=== PATIENT | male | born 1990 | race Caucasian/White ===

== ENCOUNTER 2017-10-22 23:11 | Emergency (ER) | payer MEDICAID ==
[~2017-10-22] VITALS: Ht 170.2 cm; Wt 56.1 kg
[~2017-10-22 23:11] MED LIST: ACYC-202 PO; BUPR100T4 PO; BUPR100T5 PO; CLIN-80 PO; CLON-529 PO; CLON0.5T4 PO; DIPH-423 PO; DOCU-20 PO; GUAI600T45 PO; LITH300T3 PO; MONT10TA21 PO; OMEP40CA37 PO; OXYB15TA PO; QUET200T PO
[2017-10-23] MEDS ORDERED: dicyclomine 10 MG capsule PO ONE (01:55)
[2017-10-23 03:15] VITALS: BP 124/65
== END 2017-10-23 03:17 | disposition home or self-care (01) ==
LOC: ER 23:12
DX: K59.00 Constipation, unspecified (principal); R10.9 Unspecified abdominal pain; G47.00 Insomnia, unspecified; J45.909 Unspecified asthma, uncomplicated; Z59.0 Homelessness; Z88.0 Allergy status to penicillin; Z88.1 Allergy status to other antibiotic agents; Z79.899 Other long term (current) drug therapy
CPT/HCPCS: 99282

== ENCOUNTER 2018-02-23 21:22 | Emergency (ER) | payer MEDICAID ==
[~2018-02-23] VITALS: Ht 170.2 cm; Wt 56.8 kg
[~2018-02-23 21:22] MED LIST changes: -CLIN-80 PO; +CLIN300C85 PO; +CLON-285 PO; -CLON0.5T4 PO
[2018-02-23 22:10] LABS: BASOPHILS # (AUTO) 0.1 X10'3 (0-0.2); BASOPHILS % (AUTO) 0.7 % (0-1); EOSINOPHILS # (AUTO) 0.3 X10'3 (0-0.9); EOSINOPHILS % (AUTO) 3.1 % (0-6); HEMATOCRIT 39.9 % (42.0-52.0); HEMOGLOBIN 13.9 g/dl (14.0-17.9); LYMPHOCYTES # (AUTO) 3.2 X10'3 (1.1-4.8); MEAN CORPUSCULAR HEMOGLOBIN 30.1 PG (27.0-31.0); MEAN CORPUSCULAR HGB CONC 34.9 % (33.0-36.5); MEAN CORPUSCULAR VOLUME 86.3 FL (78-98); MEAN PLATELET VOLUME 8.4 FL (7.4-10.4); MONOCYTES # (AUTO) 0.7 X10'3 (0-0.9); MONOCYTES % (AUTO) 7.5 % (2-12); NEUTROPHILS # (AUTO) 4.9 X10'3 (1.8-7.7); NEUTROPHILS % (AUTO) 53.7 % (42-75); PLATELET COUNT 240 X10'3 (140-440); RED BLOOD COUNT 4.63 X10'6 (4.70-6.10); RED CELL DISTRIBUTION WIDTH 14.2 % (11.5-14.5); WHITE BLOOD COUNT 9.2 X10'3 (4.5-11.0)
[2018-02-23 22:21] LABS: INR 0.9 INR; PARTIAL THROMBOPLASTIN TIME 25 SECONDS (22-32); PROTHROMBIN TIME 9.5 SECONDS (9.0-12.0)
[2018-02-23 22:34] LABS: ALANINE AMINOTRANSFERASE 24 U/L (12-78); ALBUMIN 3.9 G/DL (3.4-5.0); ALBUMIN/GLOBULIN RATIO 1.1 (1.1-1.5); ALKALINE PHOSPHATASE 65 IU/L (46-116); ANION GAP 8 (8-16); ASPARTATE AMINO TRANSFERASE 16 U/L (10-37); BILIRUBIN,TOTAL 0.3 MG/DL (0.1-1.0); BLOOD UREA NITROGEN 10 MG/DL (7-18); BUN/CREATININE RATIO 9.4 (5.4-32.0); CALCIUM 9.3 MG/DL (8.5-10.1); CHLORIDE 106 MMOL/L (99-107); CREATININE 1.06 MG/DL (0.60-1.10); POTASSIUM 3.3 MMOL/L (3.5-5.1); SODIUM 144 MMOL/L (135-145); TOTAL CARBON DIOXIDE 30.3 MMOL/L (24-32); TOTAL PROTEIN 7.5 G/DL (6.4-8.2); eGFR 84 ML/MIN
[2018-02-23 22:42] LABS: GLUCOSE 107 MG/DL (70-104)
[2018-02-23 23:26] LABS: CLARITY,URINE Clear (Clear); COLOR,URINE Yellow (Yellow); GLUCOSE, URINE Negative (Neg); KETONES,URINE Negative (Neg); LEUKOCYTE ESTERASE ,URINE Negative (Neg); NITRITES, URINE Negative (Neg); OCCULT BLOOD,URINE Negative (Neg); PH,URINE 5.5 (4.8-8.0); PROTEIN,URINE Negative (Neg)
[2018-02-23 23:28] LABS: UA COLLECTION TYPE CLN CATCH MIDSTREAM
[2018-02-24 00:29] VITALS: BP 114/74
[2018-02-24] MEDS ORDERED: ALBU8HFA PO (01:55)
== END 2018-02-24 02:10 | disposition home or self-care (01) ==
LOC: ER 21:23
DX: J45.909 Unspecified asthma, uncomplicated (principal); R07.89 Other chest pain; Z88.0 Allergy status to penicillin; Z88.1 Allergy status to other antibiotic agents; Z79.899 Other long term (current) drug therapy; Z59.0 Homelessness
CPT/HCPCS: 36415; 71045; 80053; 81003; 84484; 85025; 85610; 85730; 93005; 99285

== ENCOUNTER 2018-02-24 20:33 | Emergency (ER) | payer MEDICAID ==
[~2018-02-24] VITALS: Ht 170.2 cm; Wt 57.0 kg
[~2018-02-24 20:33] MED LIST changes: +ALBU8HFA PO
[2018-02-24 20:38] VITALS: BP 119/92
== END 2018-02-24 22:01 | disposition left against medical advice (07) ==
LOC: ER 20:33
DX: R05 Cough (principal); Z53.21 Procedure and treatment not carried out due to patient leaving prior to being seen by health care provider

== ENCOUNTER 2018-03-24 17:31 | Emergency (ER) | payer MEDICAID ==
[~2018-03-24] VITALS: Ht 170.2 cm; Wt 51.0 kg
[2018-03-24 18:56] VITALS: BP 118/66
== END 2018-03-24 18:58 | disposition home or self-care (01) ==
LOC: ER 17:31
DX: F15.10 Other stimulant abuse, uncomplicated (principal); R52 Pain, unspecified; J45.909 Unspecified asthma, uncomplicated; Z88.0 Allergy status to penicillin; Z88.1 Allergy status to other antibiotic agents; Z79.899 Other long term (current) drug therapy; Z59.0 Homelessness
CPT/HCPCS: 99281

== ENCOUNTER 2018-10-23 20:36 | Emergency (ER) | payer MEDICAID ==
[~2018-10-23] VITALS: Ht 175.3 cm; Wt 56.8 kg
[~2018-10-23 20:36] MED LIST changes: -ALBU8HFA PO; +CLIN-96 PO; -CLIN300C85 PO
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
--- NOTE | 2018-10-23 21:08 | NUR ---
Patient complains of clenched jaw and agitation. Patient updated on POC.
[2018-10-23] MEDS ORDERED: LORazepam 1 MG tablet PO ONE (21:10)
[2018-10-23 21:38] VITALS: BP 126/64
== END 2018-10-23 21:40 | disposition home or self-care (01) ==
LOC: ER 20:37
DX: F15.93 Other stimulant use, unspecified with withdrawal (principal); J45.909 Unspecified asthma, uncomplicated; F17.210 Nicotine dependence, cigarettes, uncomplicated; Z59.0 Homelessness; Z88.1 Allergy status to other antibiotic agents; Z88.0 Allergy status to penicillin
CPT/HCPCS: 99282

== ENCOUNTER 2018-10-27 14:57 | Emergency (ER) | payer MEDICAID ==
[~2018-10-27] VITALS: Ht 175.3 cm; Wt 59.0 kg
[2018-10-27 15:03] VITALS: BP 110/81
[2018-10-27] MEDS ORDERED: DEC4T PO (15:33)
[2018-10-27] MEDS ORDERED: PERM60CR19 TP (15:33)
== END 2018-10-27 15:47 | disposition home or self-care (01) ==
LOC: ER 14:57
DX: L50.9 Urticaria, unspecified (principal); L23.9 Allergic contact dermatitis, unspecified cause; J45.909 Unspecified asthma, uncomplicated; F15.90 Other stimulant use, unspecified, uncomplicated; Z59.0 Homelessness; Z88.0 Allergy status to penicillin; Z88.1 Allergy status to other antibiotic agents; Z79.899 Other long term (current) drug therapy
CPT/HCPCS: 99283

== ENCOUNTER 2018-11-03 16:42 | Emergency (ER) | payer MEDICAID ==
[~2018-11-03] VITALS: Ht 175.3 cm; Wt 59.1 kg
[~2018-11-03 16:42] MED LIST changes: +DEC4T PO; +PERM60CR19 TP
--- NOTE | 2018-11-03 17:19 | NUR ---
pt arrived to ER overflow RM 20. Calm and cooperative.
--- NOTE | 2018-11-03 18:53 | NUR ---
pt resting calmly with eyes closed. he woke easily when staff brought him his dinner tray and alerted him to the food. he ignored it, closed his eyes and went back to resting. Registraion stopped by a few moments later to get info from him, but he ignored her and continued to rest also.
[2018-11-03] MEDS ORDERED: GABA-532 PO (19:10)
[2018-11-03] MEDS ORDERED: ARIP30TA7 PO (19:10)
[2018-11-03 19:20] LABS: URINE AMPHETAMINE SCREEN NEGATIVE (Neg); URINE BARBITUATE SCREEN NEGATIVE (Neg); URINE BENZODIAZEPINES SCREEN NEGATIVE (Neg); URINE CANNABINOID SCREEN NEGATIVE (Neg); URINE COCAINE SCREEN NEGATIVE (Neg); URINE METHADONE SCREEN NEGATIVE (Neg); URINE OPIATE SCREEN NEGATIVE (Neg); URINE PHENCYCLIDINE SCREEN NEGATIVE (Neg)
[2018-11-03 19:23] LABS: BASOPHILS # (AUTO) 0.1 X10'3 (0-0.2); BASOPHILS % (AUTO) 0.8 % (0-1); EOSINOPHILS # (AUTO) 0.3 X10'3 (0-0.9); EOSINOPHILS % (AUTO) 2.7 % (0-6); HEMATOCRIT 42.6 % (42.0-52.0); HEMOGLOBIN 14.3 g/dl (14.0-17.9); LYMPHOCYTES # (AUTO) 2.1 X10'3 (1.1-4.8); LYMPHOCYTES % (AUTO) 19.6 % (21-51); MEAN CORPUSCULAR HGB CONC 33.5 g/dL (33.0-36.5); MEAN CORPUSCULAR VOLUME 86.5 FL (78-98); MEAN PLATELET VOLUME 8.7 FL (7.4-10.4); MONOCYTES # (AUTO) 1.3 X10'3 (0-0.9); MONOCYTES % (AUTO) 12.4 % (2-12); NEUTROPHILS # (AUTO) 6.9 X10'3 (1.8-7.7); NEUTROPHILS % (AUTO) 64.5 % (42-75); PLATELET COUNT 224 X10'3 (140-440); RED BLOOD COUNT 4.92 X10'6 (4.70-6.10); RED CELL DISTRIBUTION WIDTH 13.9 % (11.5-14.5); WHITE BLOOD COUNT 10.7 X10'3 (4.5-11.0)
--- NOTE | 2018-11-03 19:35 | NUR ---
PA at bedside. SOC called to initiate consult
[2018-11-03 19:53] LABS: ALANINE AMINOTRANSFERASE 22 U/L (12-78); ALBUMIN 3.6 G/DL (3.4-5.0); ALBUMIN/GLOBULIN RATIO 1.1 (1.1-1.5); ALKALINE PHOSPHATASE 57 IU/L (46-116); ANION GAP 6 (8-16); ASPARTATE AMINO TRANSFERASE 19 U/L (10-37); BILIRUBIN,TOTAL 0.3 MG/DL (0.1-1.0); BLOOD UREA NITROGEN 15 MG/DL (7-18); CALCIUM 9.6 MG/DL (8.5-10.1); CHLORIDE 106 MMOL/L (99-107); CREATININE 0.94 MG/DL (0.60-1.10); ETHANOL < 0.010 GM/DL (0.0-0.010); GLUCOSE 100 MG/DL (70-104); SODIUM 144 MMOL/L (135-145); TOTAL CARBON DIOXIDE 32.2 MMOL/L (24-32); eGFR > 90 ML/MIN
--- NOTE | 2018-11-03 21:25 | NUR ---
Packet faxed to [facility]. Telephoned [facility] office to confirm recepit of packet, spoke to
--- NOTE | 2018-11-03 22:12 | NUR ---
SOC called for report on pt. pt woken up for consult, he was very irritated that we woke him but will cooperate
[2018-11-03] MEDS: aripiprazole 5mg tablet PO SCH (22:19)
--- NOTE | 2018-11-03 22:24 | NUR ---
Telepsych marina, recommended 5150 as pt is explicitly saying "if you discharge me i WILL commit suicide!"
[2018-11-03] MEDS ORDERED: ziprasidone 20mg capsule PO PRN (23:15)
--- NOTE | 2018-11-04 01:03 | NUR ---
PT UP TO THE BATHROOM. PT RETURNED TO BED, SLEEPING ON HIS RIGHT SIDE. RESPIRATIONS EVEN AND UNLABORED.
--- NOTE | 2018-11-04 02:46 | NUR ---
PT SLEEPING SOUNDLY, RESPIRATIONS EVEN AND UNLABORED.
--- NOTE | 2018-11-04 03:47 | NUR ---
PT SLEEPING SOUNDLY, RESPIRATIONS EVEN AND UNLABORED.
--- NOTE | 2018-11-04 06:15 | NUR ---
Report from DALTON Olmedo
[2018-11-04] MEDS: gabapentin 300mg capsule PO SCH (07:52)
--- NOTE | 2018-11-04 09:00 | NUR ---
pt talking with Sanjuana from mental health
--- NOTE | 2018-11-04 11:00 | NUR ---
PT RESTING WILL CONTINUE TO MONITOR
--- NOTE | 2018-11-04 13:06 | NUR ---
PT SITTING UP IN BED EATING LUNCH.
--- NOTE | 2018-11-04 17:00 | NUR ---
pt coloring at her bed she has been very pleasant
--- NOTE | 2018-11-04 17:00 | NUR ---
Pt sleeping in bed has slight temp 101.2 , will continue to monitor. Per pt he is withdrawling from meth his tox screen was negative he said he ran out BP and HR stable
[2018-11-04] MEDS ORDERED: acetaminophen 325mg tablet PO PRN (19:25)
[2018-11-04] MEDS: LORazepam 1 MG tablet PO PRN (19:40)
--- NOTE | 2018-11-04 19:42 | NUR ---
MEDICATED WITH TYLENOL FOR HEADACHE AND ATIVAN FOR AGGITATION.
[2018-11-04] MEDS: aripiprazole 5mg tablet PO SCH (20:25)
--- NOTE | 2018-11-04 20:31 | NUR ---
PT SLEEPING AND NO FURTHER C/O HEADACHE AFTER MEDS.
--- NOTE | 2018-11-05 06:30 | NUR ---
Jefferson wheat in ED - 11/05/18 at 1123 by PGALVANGELA Asleep at change of shift. In two point soft restraints per night nurse because patient has been attempting to pull out his catheter.
--- NOTE | 2018-11-05 06:30 | NUR ---
Asleep at change of shift observation. In no distress. Undisturbed at this time.
[2018-11-05] MEDS: gabapentin 300mg capsule PO SCH (08:20)
--- NOTE | 2018-11-05 08:30 | NUR ---
Awakened for breakfast and morning medication. Ate the majority of his meal. When asked if he felt to be a danger to himself, patient yelled "Yes I'm suicidal. If you guys let me go I'm going to leave this place and stab myself. My ex- is going to divorce me. I have nothing to live for."
--- NOTE | 2018-11-05 10:30 | NUR ---
Asleep at this time. In line of sight of staff at all times.
--- NOTE | 2018-11-05 13:30 | NUR ---
Awakened for lunch. Ate 100% of his meal. Got up to use the bathroom. Returned to bed immediately afterwards. Awake in bed, staring at the ceiling.
--- NOTE | 2018-11-05 14:18 | NUR ---
SPOKE WITH EMILY POE ON THE PHONE AND GAVE REPORT ON PT. EMILY IS GOING TO PRESENT THE PT TO THEIR PROVIDER AND SEND THE INFORMATION TO THE [facility] OFFICE.
[2018-11-05] MEDS ORDERED: LORazepam 2 mg/ml vial ONE (15:40)
[2018-11-05] MEDS ORDERED: diphenhydrAMINE 50 mg/ml inj IM ONE (15:40)
[2018-11-05] MEDS ORDERED: ziprasidone IM 20mg inj **IM only IM ONE (15:40)
[2018-11-05] MEDS ORDERED: LORazepam 2 mg/ml vial IM ONE (15:40)
--- NOTE | 2018-11-05 16:12 | NUR ---
Patient displayed a sudden change in behavior at 1550. Began yelling about needing to leave to go to [facility]. That he was going to lose his job. That his 72 hour hold should have been up by this time and there was no reason for him to be here. Asked if he would accept medications by mouth to increase his comfort and decrease his agitation. Patient refused oral medications. Security called. Dr. Vega consulted. Orders given for Geodon 20mg/Ativan 1 mg./Benadryl 25 mg IM. Medications administered as ordered with the help of security because patient was screaming and did not want to cooperate.
--- NOTE | 2018-11-05 17:32 | NUR ---
Sleeping soundly at this time
--- NOTE | 2018-11-05 18:32 | NUR ---
SITTING UP EATING DINNER, PT CALM AND COOPERATIVE.
[2018-11-05] MEDS: aripiprazole 5mg tablet PO SCH (20:47)
--- NOTE | 2018-11-05 21:13 | NUR ---
HS MEDS GIVEN, PT SITTING UP AT BEDSIDE.
--- NOTE | 2018-11-06 06:30 | NUR ---
Continues to sleep.
--- NOTE | 2018-11-06 07:30 | NUR ---
Call received from Estrellita at [facility] to say patient has been accepted at [facility]. Team Guide will be here close to noon.
[2018-11-06] MEDS: LORazepam 1 MG tablet PO PRN (08:21)
[2018-11-06] MEDS: gabapentin 300mg capsule PO SCH (08:22)
--- NOTE | 2018-11-06 08:28 | NUR ---
Awakened for breakfast and AM medications. In good spirits. Asking to good home. Denies suicidal ideation or intent at this time.
--- NOTE | 2018-11-06 10:30 | NUR ---
Crying in his bed because he wants "my raúl snap puff cereal from my belongings, and some milk." Yelling, using profanity and crying, while curled up in his bed. Presents as childlike and not easily comforted with words. Given a sandwich and a carton of milk. Patient said thank you. Mood and affect improved.
--- NOTE | 2018-11-06 12:40 | NUR ---
Licensed Occupational Therapy Assistant from [facility] here to tranfer patient to [facility] for in-patient psychiatric care. Given all personal belongings. Escorted out via ambulatory with Security
[2018-11-06 17:23] VITALS: BP 114/75
== END 2018-11-06 12:40 ==
LOC: ER 16:43
DX: R45.851 Suicidal ideations (principal); F19.20 Other psychoactive substance dependence, uncomplicated; J45.909 Unspecified asthma, uncomplicated; F41.9 Anxiety disorder, unspecified; F31.9 Bipolar disorder, unspecified; F20.9 Schizophrenia, unspecified; F15.90 Other stimulant use, unspecified, uncomplicated; Z59.0 Homelessness; Z88.0 Allergy status to penicillin; Z88.1 Allergy status to other antibiotic agents; Z79.899 Other long term (current) drug therapy
CPT/HCPCS: 36415; 80053; 80305; 80320; 84443; 85025; 96372; 99285

== ENCOUNTER 2018-11-08 23:46 | Emergency (ER) | payer MEDICAID ==
[~2018-11-08] VITALS: Ht 175.3 cm; Wt 59.0 kg
[~2018-11-08 23:46] MED LIST changes: -ACYC-202 PO; +ARIP30TA7 PO; -BUPR100T4 PO; -BUPR100T5 PO; -CLIN-96 PO; -CLON-285 PO; -CLON-529 PO; -DEC4T PO; -DIPH-423 PO; -DOCU-20 PO; +GABA-532 PO; -GUAI600T45 PO; -LITH300T3 PO; -MONT10TA21 PO; -OMEP40CA37 PO; -OXYB15TA PO; -PERM60CR19 TP; -QUET200T PO
[2018-11-08 23:49] VITALS: BP 126/75
--- NOTE | 2018-11-08 23:56 | NUR ---
GEOVANNA CONTACTED CASE #[id number]
== END 2018-11-09 00:43 | disposition home or self-care (01) ==
LOC: ER 23:47
DX: S60.511A Abrasion of right hand, initial encounter (principal); S80.212A Abrasion, left knee, initial encounter; S80.211A Abrasion, right knee, initial encounter; S00.511A Abrasion of lip, initial encounter; Z59.0 Homelessness; F15.90 Other stimulant use, unspecified, uncomplicated; Z88.0 Allergy status to penicillin; Z88.1 Allergy status to other antibiotic agents; Z79.899 Other long term (current) drug therapy; Y08.89XA Assault by other specified means, initial encounter; Y93.89 Activity, other specified; Y92.89 Other specified places as the place of occurrence of the external cause; Y99.8 Other external cause status
CPT/HCPCS: 99283

== ENCOUNTER 2018-11-10 16:54 | Emergency (ER) | payer MEDICAID ==
[2018-11-11] MEDS ORDERED: ALBU6.7H INH (10:28)
== END 2018-11-10 19:21 | disposition left against medical advice (07) ==
LOC: ER 16:54
DX: M79.643 Pain in unspecified hand (principal); Z53.21 Procedure and treatment not carried out due to patient leaving prior to being seen by health care provider

== ENCOUNTER 2018-11-11 08:28 | Emergency (ER) | payer MEDICAID ==
[~2018-11-11] VITALS: Ht 175.3 cm; Wt 59.0 kg
[2018-11-11 09:13] VITALS: BP 126/60
[2018-11-11] MEDS ORDERED: albuterol 2.5 MG/3 ML nebule NEB ONE (10:25)
[2018-11-11] MEDS ORDERED: dexamethasone 4mg tablet PO ONE (10:25)
[2018-11-11] MEDS ORDERED: ALBU6.7H INH (10:28)
== END 2018-11-11 10:59 | disposition home or self-care (01) ==
LOC: ER 08:30
DX: J20.9 Acute bronchitis, unspecified (principal); J45.909 Unspecified asthma, uncomplicated; F17.200 Nicotine dependence, unspecified, uncomplicated; F15.90 Other stimulant use, unspecified, uncomplicated; Z59.0 Homelessness; Z88.0 Allergy status to penicillin; Z88.1 Allergy status to other antibiotic agents; Z79.899 Other long term (current) drug therapy
CPT/HCPCS: 71046; 94640; 99283; J8540

== ENCOUNTER 2018-11-17 04:06 | Emergency (ER) | payer MEDICAID ==
[~2018-11-17] VITALS: Ht 175.3 cm; Wt 55.5 kg
[~2018-11-17 04:06] MED LIST changes: +ALBU6.7H INH
[2018-11-17 04:14] VITALS: BP 134/84
[2018-11-17] MEDS ORDERED: acetaminophen 325mg tablet PO ONE (04:15)
== END 2018-11-17 04:45 | disposition home or self-care (01) ==
LOC: ER 04:07
DX: S00.03XA Contusion of scalp, initial encounter (principal); F15.10 Other stimulant abuse, uncomplicated; J45.909 Unspecified asthma, uncomplicated; F17.210 Nicotine dependence, cigarettes, uncomplicated; Z59.0 Homelessness; Z88.0 Allergy status to penicillin; Z88.1 Allergy status to other antibiotic agents; Z79.899 Other long term (current) drug therapy; Y04.8XXA Assault by other bodily force, initial encounter; Y93.89 Activity, other specified; Y92.89 Other specified places as the place of occurrence of the external cause; Y99.8 Other external cause status
CPT/HCPCS: 99282

== ENCOUNTER 2018-11-22 13:34 | Inpatient (IN) | payer MEDICAID ==
[~2018-11-22] VITALS: Ht 175.3 cm; Wt 58.6 kg
[2018-11-22 16:09] LABS: BASOPHILS # (AUTO) 0.1 X10'3 (0-0.2); BASOPHILS % (AUTO) 1.1 % (0-1); EOSINOPHILS # (AUTO) 0.1 X10'3 (0-0.9); EOSINOPHILS % (AUTO) 1.6 % (0-6); HEMATOCRIT 41.5 % (42.0-52.0); HEMOGLOBIN 13.9 g/dl (14.0-17.9); LYMPHOCYTES # (AUTO) 2.3 X10'3 (1.1-4.8); LYMPHOCYTES % (AUTO) 27.1 % (21-51); MEAN CORPUSCULAR HEMOGLOBIN 29.2 PG (27.0-31.0); MEAN CORPUSCULAR HGB CONC 33.5 g/dL (33.0-36.5); MEAN CORPUSCULAR VOLUME 87.1 FL (78-98); MEAN PLATELET VOLUME 8.7 FL (7.4-10.4); MONOCYTES # (AUTO) 1.1 X10'3 (0-0.9); MONOCYTES % (AUTO) 12.9 % (2-12); NEUTROPHILS # (AUTO) 4.8 X10'3 (1.8-7.7); NEUTROPHILS % (AUTO) 57.3 % (42-75); PLATELET COUNT 268 X10'3 (140-440); RED BLOOD COUNT 4.77 X10'6 (4.70-6.10); RED CELL DISTRIBUTION WIDTH 13.8 % (11.5-14.5); WHITE BLOOD COUNT 8.4 X10'3 (4.5-11.0)
[2018-11-22 16:38] LABS: ALANINE AMINOTRANSFERASE 22 U/L (12-78); ALBUMIN 3.6 G/DL (3.4-5.0); ALBUMIN/GLOBULIN RATIO 1.1 (1.1-1.5); ALKALINE PHOSPHATASE 63 IU/L (46-116); ANION GAP 6 (8-16); ASPARTATE AMINO TRANSFERASE 15 U/L (10-37); BILIRUBIN,TOTAL 0.3 MG/DL (0.1-1.0); BLOOD UREA NITROGEN 12 MG/DL (7-18); BUN/CREATININE RATIO 15.6 (5.4-32.0); CALCIUM 9.4 MG/DL (8.5-10.1); CHLORIDE 107 MMOL/L (99-107); CREATININE 0.77 MG/DL (0.60-1.10); GLUCOSE 106 MG/DL (70-104); POTASSIUM 3.8 MMOL/L (3.5-5.1); SODIUM 143 MMOL/L (135-145); TOTAL PROTEIN 6.8 G/DL (6.4-8.2); eGFR > 90 ML/MIN
[2018-11-22 16:39] LABS: VALPROATE < 3.0 UG/ML (50-100)
[2018-11-22 18:21] LABS: URINE AMPHETAMINE SCREEN NEGATIVE (Neg); URINE BARBITUATE SCREEN NEGATIVE (Neg); URINE BENZODIAZEPINES SCREEN NEGATIVE (Neg); URINE CANNABINOID SCREEN NEGATIVE (Neg); URINE COCAINE SCREEN NEGATIVE (Neg); URINE METHADONE SCREEN NEGATIVE (Neg); URINE OPIATE SCREEN NEGATIVE (Neg); URINE PHENCYCLIDINE SCREEN NEGATIVE (Neg)
--- NOTE | 2018-11-22 18:25 | NUR ---
PT WANTED TO LEAVE BECAUSE HE WAS HUNGRY. PT GIVEN A SACK LUNCH AND AGREED TO WAIT FOR SOC EVAL.
[2018-11-22] MEDS ORDERED: divalproex sodium 250mg tablet PO ONE (18:45)
[2018-11-22] MEDS ORDERED: ondansetron/PF 4mg/2ml inj IV PRN (19:30)
[2018-11-22] MEDS ORDERED: potassium Cl 40MEQ/NS 500ml 500 ML IV PRN ×2 (19:30)
[2018-11-22] MEDS ORDERED: potassium Cl 20 mEq SR tablet PO PRN ×2 (19:30)
[2018-11-22] MEDS ORDERED: magnesium 4gm in 100ml NS 100 ML IV PRN (19:30)
[2018-11-22] MEDS ORDERED: acetaminophen 325mg tablet PO PRN (19:30)
[2018-11-22] MEDS ORDERED: magnesium hydroxide 30ml (MOM) UD suspension PO PRN (19:30)
[2018-11-22] MEDS ORDERED: magnesium 2GM in 50ml NS 50 ML IV PRN (19:30)
[2018-11-22] MEDS ORDERED: mag hydrox/Alum hydrox/simeth 30ml oral suspension PO PRN (19:30)
[2018-11-22] MEDS: divalproex sodium 250mg tablet PO SCH (19:43)
[2018-11-22] MEDS: aripiprazole 5mg tablet PO SCH (20:46)
[2018-11-22] MEDS: gabapentin 300mg capsule PO SCH (20:46)
[2018-11-22] MEDS: normal saline 1000ml 1,000 ML IV SCH (20:47)
[2018-11-23 00:27] VITALS: BP 119/72
[2018-11-23] MEDS: normal saline 1000ml 1,000 ML IV SCH ×3 (05:28→20:25)
[2018-11-23 06:00] VITALS: BP 105/62
--- NOTE | 2018-11-23 06:07 | NUR ---
Report given to Ana HOFFMAN.
--- NOTE | 2018-11-23 06:15 | NUR ---
I have received patient report from Jasmyn Martinez RN
[2018-11-23 07:05] LABS: BASOPHILS # (AUTO) 0.1 X10'3 (0-0.2); BASOPHILS % (AUTO) 1.3 % (0-1); EOSINOPHILS # (AUTO) 0.2 X10'3 (0-0.9); HEMATOCRIT 41.9 % (42.0-52.0); HEMOGLOBIN 14.1 g/dl (14.0-17.9); LYMPHOCYTES # (AUTO) 2.8 X10'3 (1.1-4.8); LYMPHOCYTES % (AUTO) 41.2 % (21-51); MEAN CORPUSCULAR HEMOGLOBIN 29.3 PG (27.0-31.0); MEAN CORPUSCULAR HGB CONC 33.7 g/dL (33.0-36.5); MEAN CORPUSCULAR VOLUME 87.2 FL (78-98); MEAN PLATELET VOLUME 8.7 FL (7.4-10.4); MONOCYTES # (AUTO) 0.8 X10'3 (0-0.9); MONOCYTES % (AUTO) 11.7 % (2-12); NEUTROPHILS # (AUTO) 2.9 X10'3 (1.8-7.7); NEUTROPHILS % (AUTO) 42.8 % (42-75); PLATELET COUNT 247 X10'3 (140-440); RED CELL DISTRIBUTION WIDTH 14.1 % (11.5-14.5); WHITE BLOOD COUNT 6.7 X10'3 (4.5-11.0)
[2018-11-23 07:27] LABS: ALANINE AMINOTRANSFERASE 17 U/L (12-78); ALBUMIN 3.2 G/DL (3.4-5.0); ALBUMIN/GLOBULIN RATIO 1.1 (1.1-1.5); ALKALINE PHOSPHATASE 59 IU/L (46-116); ANION GAP 7 (8-16); ASPARTATE AMINO TRANSFERASE 15 U/L (10-37); BILIRUBIN,TOTAL 0.3 MG/DL (0.1-1.0); BLOOD UREA NITROGEN 11 MG/DL (7-18); BUN/CREATININE RATIO 11.6 (5.4-32.0); CALCIUM 8.7 MG/DL (8.5-10.1); CHLORIDE 110 MMOL/L (99-107); CREATININE 0.95 MG/DL (0.60-1.10); GLUCOSE 88 MG/DL (70-104); POTASSIUM 3.9 MMOL/L (3.5-5.1); SODIUM 144 MMOL/L (135-145); TOTAL CARBON DIOXIDE 26.8 MMOL/L (24-32); TOTAL PROTEIN 6.2 G/DL (6.4-8.2); eGFR > 90 ML/MIN
[2018-11-23] MEDS ORDERED: K and/or MAG REPLACEMENT MC SCH (08:00)
[2018-11-23] MEDS: gabapentin 300mg capsule PO SCH ×3 (08:24→19:32)
[2018-11-23 10:00] VITALS: BP 110/62
[2018-11-23] MEDS: divalproex sodium 250mg tablet PO SCH ×2 (10:55→19:33)
--- NOTE | 2018-11-23 11:11 | NUR ---
I paged Dr. Milian about low HR in low 40's patient sleeping. BP 117/71 98% on RA. He is assymptomatic.
[2018-11-23 18:00] VITALS: BP 113/72
--- NOTE | 2018-11-23 18:24 | NUR ---
I gave patient report to Kaur HOFFMAN
--- NOTE | 2018-11-23 18:42 | NUR ---
Patient in room ORTHO 4022. I have received report from Ana HOFFMAN and had the opportunity to ask questions and assume patient care.
[2018-11-23] MEDS: aripiprazole 5mg tablet PO SCH (19:37)
[2018-11-23 22:14] VITALS: BP 90/54
--- NOTE | 2018-11-23 23:19 | NUR ---
Pt pulled out IV, He said it was an accident, catheter tip was intact.
--- NOTE | 2018-11-23 23:43 | NUR ---
Notified Dr. Verma, he said it was ok leave the IV out seeing that he never had a witnessed seizure and he is probably getting discharged tomorrow.
[2018-11-24 06:00] VITALS: BP 92/57
--- NOTE | 2018-11-24 06:29 | NUR ---
I have received patient report from Deandre HOFFMAN
--- NOTE | 2018-11-24 06:30 | NUR ---
I have received patient report from Alice Martinez RN Addendum: 11/24/18 at 0631 by Brenda Mcnulty RN I received report from kayli Beverly
[2018-11-24 06:37] LABS: BASOPHILS # (AUTO) 0.1 X10'3 (0-0.2); BASOPHILS % (AUTO) 0.8 % (0-1); EOSINOPHILS # (AUTO) 0.2 X10'3 (0-0.9); EOSINOPHILS % (AUTO) 2.9 % (0-6); HEMATOCRIT 44.2 % (42.0-52.0); HEMOGLOBIN 14.7 g/dl (14.0-17.9); LYMPHOCYTES # (AUTO) 2.8 X10'3 (1.1-4.8); LYMPHOCYTES % (AUTO) 38.6 % (21-51); MEAN CORPUSCULAR HEMOGLOBIN 29.4 PG (27.0-31.0); MEAN CORPUSCULAR HGB CONC 33.2 g/dL (33.0-36.5); MEAN CORPUSCULAR VOLUME 88.6 FL (78-98); MEAN PLATELET VOLUME 8.5 FL (7.4-10.4); MONOCYTES # (AUTO) 0.7 X10'3 (0-0.9); NEUTROPHILS # (AUTO) 3.4 X10'3 (1.8-7.7); NEUTROPHILS % (AUTO) 47.7 % (42-75); PLATELET COUNT 253 X10'3 (140-440); RED BLOOD COUNT 4.99 X10'6 (4.70-6.10); RED CELL DISTRIBUTION WIDTH 13.5 % (11.5-14.5); WHITE BLOOD COUNT 7.1 X10'3 (4.5-11.0)
--- NOTE | 2018-11-24 06:45 | NUR ---
Problems reprioritized. Patient report given, questions answered & plan of care reviewed with Ana HOFFMAN.
[2018-11-24 06:50] LABS: ALANINE AMINOTRANSFERASE 18 U/L (12-78); ALBUMIN 3.3 G/DL (3.4-5.0); ALKALINE PHOSPHATASE 61 IU/L (46-116); ANION GAP 7 (8-16); ASPARTATE AMINO TRANSFERASE 13 U/L (10-37); BILIRUBIN,TOTAL 0.3 MG/DL (0.1-1.0); BLOOD UREA NITROGEN 16 MG/DL (7-18); BUN/CREATININE RATIO 17.6 (5.4-32.0); CALCIUM 9.3 MG/DL (8.5-10.1); CHLORIDE 109 MMOL/L (99-107); CREATININE 0.91 MG/DL (0.60-1.10); GLUCOSE 84 MG/DL (70-104); MAGNESIUM 2.1 MG/DL (1.5-2.4); POTASSIUM 3.9 MMOL/L (3.5-5.1); SODIUM 146 MMOL/L (135-145); TOTAL CARBON DIOXIDE 30.5 MMOL/L (24-32); TOTAL PROTEIN 6.7 G/DL (6.4-8.2); eGFR > 90 ML/MIN
[2018-11-24] MEDS ORDERED: GABA-532 PO (08:27)
[2018-11-24] MEDS ORDERED: DIVA250T4 PO (08:27)
[2018-11-24] MEDS ORDERED: ARIP30TA7 PO (08:27)
[2018-11-24] MEDS: gabapentin 300mg capsule PO SCH (08:57)
[2018-11-24] MEDS: divalproex sodium 250mg tablet PO SCH (08:57)
[2018-11-24 10:00] VITALS: BP 104/55
--- NOTE | 2018-11-24 14:40 | NUR ---
Patient discharged with medications delivered by [facility], he had a bus pass given to him. He was supposed to wait for his cane but didn't want to wait for it and Nahid VILLALTA'd him while I was on my lunch break.
== END 2018-11-24 13:40 | disposition home or self-care (01) | DRG 53 ==
LOC: ER 13:34 → ORTHO 4S 20:57 → EDBEDREQ 21:11 → CMPBEDREQ 11-23 00:58
PROVIDERS: ADMIT Family Medicine; ATTEND Internal Medicine
DX: G40.409 Other generalized epilepsy and epileptic syndromes, not intractable, without status epilepticus (principal); F20.9 Schizophrenia, unspecified; G83.84 Todd's paralysis (postepileptic); F12.90 Cannabis use, unspecified, uncomplicated; F31.9 Bipolar disorder, unspecified; J45.909 Unspecified asthma, uncomplicated; F17.210 Nicotine dependence, cigarettes, uncomplicated; F41.9 Anxiety disorder, unspecified; Z59.0 Homelessness; Z79.899 Other long term (current) drug therapy; Z91.14 Patient's other noncompliance with medication regimen; Z88.0 Allergy status to penicillin; Z88.1 Allergy status to other antibiotic agents
CPT/HCPCS: 36415; 70450; 80053; 80164; 80305; 83735; 85025; 87070; 92508; 92616; 93306; 97116; 97161; 97530; 99285; G0378; J7030

== ENCOUNTER 2018-11-28 15:34 | Emergency (ER) | payer MEDICAID ==
[~2018-11-28] VITALS: Ht 175.3 cm; Wt 53.0 kg
[~2018-11-28 15:34] MED LIST changes: -ALBU6.7H INH; +DIVA250T4 PO
[2018-11-28 15:43] VITALS: BP 130/75
--- NOTE | 2018-11-28 16:18 | NUR ---
call [facility]
== END 2018-11-28 17:34 | disposition home or self-care (01) ==
LOC: ER 15:34
DX: S00.12XA Contusion of left eyelid and periocular area, initial encounter (principal); J45.909 Unspecified asthma, uncomplicated; F17.200 Nicotine dependence, unspecified, uncomplicated; F12.90 Cannabis use, unspecified, uncomplicated; F15.90 Other stimulant use, unspecified, uncomplicated; Z59.0 Homelessness; Z88.0 Allergy status to penicillin; Z88.1 Allergy status to other antibiotic agents; Z79.899 Other long term (current) drug therapy; Y08.89XA Assault by other specified means, initial encounter; Y93.89 Activity, other specified; Y92.89 Other specified places as the place of occurrence of the external cause; Y99.8 Other external cause status
CPT/HCPCS: 99281; 99282

== ENCOUNTER 2018-12-15 13:07 | Emergency (ER) | payer MEDICAID ==
[~2018-12-15] VITALS: Ht 175.3 cm; Wt 59.1 kg
[2018-12-15 15:06] LABS: BASOPHILS % (AUTO) 0.5 % (0-1); EOSINOPHILS # (AUTO) 0.2 X10'3 (0-0.9); EOSINOPHILS % (AUTO) 2.5 % (0-6); HEMATOCRIT 41.6 % (42.0-52.0); LYMPHOCYTES # (AUTO) 1.9 X10'3 (1.1-4.8); LYMPHOCYTES % (AUTO) 22.4 % (21-51); MEAN CORPUSCULAR HEMOGLOBIN 29.2 PG (27.0-31.0); MEAN CORPUSCULAR HGB CONC 33.5 g/dL (33.0-36.5); MEAN CORPUSCULAR VOLUME 87.1 FL (78-98); MEAN PLATELET VOLUME 8.6 FL (7.4-10.4); MONOCYTES % (AUTO) 11.4 % (2-12); NEUTROPHILS # (AUTO) 5.5 X10'3 (1.8-7.7); NEUTROPHILS % (AUTO) 63.2 % (42-75); PLATELET COUNT 249 X10'3 (140-440); RED BLOOD COUNT 4.78 X10'6 (4.70-6.10); RED CELL DISTRIBUTION WIDTH 13.9 % (11.5-14.5); WHITE BLOOD COUNT 8.6 X10'3 (4.5-11.0)
[2018-12-15 15:22] LABS: ALANINE AMINOTRANSFERASE 27 U/L (12-78); ALBUMIN/GLOBULIN RATIO 1.3 (1.1-1.5); ALKALINE PHOSPHATASE 63 IU/L (46-116); ANION GAP 6 (8-16); ASPARTATE AMINO TRANSFERASE 27 U/L (10-37); BILIRUBIN,TOTAL 0.8 MG/DL (0.1-1.0); BLOOD UREA NITROGEN 13 MG/DL (7-18); BUN/CREATININE RATIO 16.3 (5.4-32.0); CALCIUM 9.8 MG/DL (8.5-10.1); CHLORIDE 108 MMOL/L (99-107); ETHANOL < 0.010 GM/DL (0.0-0.010); GLUCOSE 85 MG/DL (70-104); POTASSIUM 4.3 MMOL/L (3.5-5.1); SODIUM 142 MMOL/L (135-145); TOTAL CARBON DIOXIDE 28.2 MMOL/L (24-32); TOTAL PROTEIN 7.2 G/DL (6.4-8.2); eGFR > 90 ML/MIN
--- NOTE | 2018-12-15 16:15 | NUR ---
Received pt from main ER. Cooperative with instructions and changed into gown. Appears tired and wants to rest. Reports active thoughts of suicide.
[2018-12-15 17:12] LABS: URINE AMPHETAMINE SCREEN POSITIVE (Neg); URINE BARBITUATE SCREEN NEGATIVE (Neg); URINE BENZODIAZEPINES SCREEN NEGATIVE (Neg); URINE CANNABINOID SCREEN NEGATIVE (Neg); URINE COCAINE SCREEN NEGATIVE (Neg); URINE METHADONE SCREEN NEGATIVE (Neg); URINE OPIATE SCREEN NEGATIVE (Neg); URINE PHENCYCLIDINE SCREEN NEGATIVE (Neg)
--- NOTE | 2018-12-15 18:14 | NUR ---
Pt sleeping in bed with normal respirations and in no distress.
--- NOTE | 2018-12-15 18:40 | NUR ---
Patient sleeping on right side. No distress observed. Continue to monitor.
[2018-12-15 18:49] LABS: CLARITY,URINE CLEAR (Clear); COLOR,URINE YELLOW (Yellow); GLUCOSE, URINE NEGATIVE (Neg); KETONES,URINE TRACE mg/dl (Neg); LEUKOCYTE ESTERASE ,URINE NEGATIVE (Neg); NITRITES, URINE NEGATIVE (Neg); OCCULT BLOOD,URINE NEGATIVE (Neg); PROTEIN,URINE NEGATIVE (Neg)
[2018-12-15 19:02] LABS: UA COLLECTION TYPE CLN CATCH MIDSTREAM
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
--- NOTE | 2018-12-15 21:01 | NUR ---
Patient sleeping supine. No distress observed. Continue to monitor.
--- NOTE | 2018-12-15 21:55 | NUR ---
Clinton HOLLIDAY, evaluating patient. Continue to monitor.
[2018-12-15] MEDS ORDERED: DIVA125T31 PO (23:20)
[2018-12-15] MEDS ORDERED: ARIP30TA7 PO (23:20)
[2018-12-15] MEDS ORDERED: GABA-532 PO (23:20)
--- NOTE | 2018-12-16 00:20 | NUR ---
Patient sleeping supine. No distress observed. Continue to monitor.
--- NOTE | 2018-12-16 02:16 | NUR ---
Patient sleeping on left side. No distress observed. Continue to monitor.
--- NOTE | 2018-12-16 04:34 | NUR ---
Patient sleeping supine. No restlessness observed. Continue to monitor.
--- NOTE | 2018-12-16 05:25 | NUR ---
Patient ambulatory to BR, steady gait. Continue to monitor.
--- NOTE | 2018-12-16 06:42 | NUR ---
Nursing Note: Pt laying on his back with his eyes closed, RR even and unlabored, no S&S of distress, will continue to monitor.
--- NOTE | 2018-12-16 07:41 | NUR ---
Nursing Note: Pt laying on L side, eyes closed, RR even and unlabored, no S&S of distress, will continue to monitor.
[2018-12-16] MEDS ORDERED: divalproex sod 125mg tablet.DR PO SCH (08:00)
[2018-12-16] MEDS: gabapentin 300mg capsule PO SCH ×3 (08:05→21:06)
[2018-12-16] MEDS: divalproex sod 250mg ER (24-hour) tablet PO SCH ×2 (08:05→21:06)
--- NOTE | 2018-12-16 08:45 | NUR ---
Nursing Note: Pt laying in bed on his back, RR even and unlabored, no S&S of distress, will continue to monitor.
--- NOTE | 2018-12-16 10:16 | NUR ---
Nursing Note: Pt laying in bed on back with eyes closed, appears asleep, RR even and unlabored, no S&S of distress, will continue to monitor.
--- NOTE | 2018-12-16 11:40 | NUR ---
Nursing Note: Pt laying on his back with his eyes closed, RR even and unlabored, no S&S of distress, will continue to monitor.
--- NOTE | 2018-12-16 13:25 | NUR ---
Nursing Note: Pt sitting up eating lunch. No S&S of distress, will continue to monitor.
--- NOTE | 2018-12-16 14:29 | NUR ---
Nursing Note: Pt laying in back on his bed, RR even and unlabored, no S&S of distress, will continue to monitor.
--- NOTE | 2018-12-16 16:18 | NUR ---
Nursing Note: Pt laying in bed, no S&S of distress, RR even and unlabored, will continue to monitor.
--- NOTE | 2018-12-16 17:41 | NUR ---
Nursing Note: Pt awake laying in bed, NA at bedside obtaining VS. No S&S of distress, will continue to monitor.
--- NOTE | 2018-12-16 20:14 | NUR ---
PT HAS ORDER FOR TELEPSYCH, BUT DR. MEYER WILL SEE THE PT TOMORROW 12/17/2018
[2018-12-16] MEDS: aripiprazole 5mg tablet PO SCH (21:06)
--- NOTE | 2018-12-16 21:19 | NUR ---
Pt resting on his right side in bed. Appears to be asleep. Respirations even and unlabored
--- NOTE | 2018-12-16 22:30 | NUR ---
Pt resting on his right side in bed. Appears to be asleep. Respirations even and unlabored
--- NOTE | 2018-12-16 23:52 | NUR ---
Pt sleeping quietly in bed. Respirations even and unlabored.
--- NOTE | 2018-12-17 00:45 | NUR ---
Pt sleeping quietly in bed. Respirations even and unlabored.
--- NOTE | 2018-12-17 02:46 | NUR ---
Pt sleeping quietly in bed. Respirations even and unlabored.
--- NOTE | 2018-12-17 04:15 | NUR ---
Pt sleeping quietly in bed. Respirations even and unlabored.
--- NOTE | 2018-12-17 05:47 | NUR ---
Pt sleeping quietly in bed. Respirations even and unlabored.
--- NOTE | 2018-12-17 07:12 | NUR ---
Pt is lying on his back asleep with no noticeable distress. His respirations are even and unlabored.
[2018-12-17] MEDS: divalproex sod 250mg ER (24-hour) tablet PO SCH ×2 (08:39→20:17)
[2018-12-17] MEDS: gabapentin 300mg capsule PO SCH ×3 (08:39→20:17)
--- NOTE | 2018-12-17 09:32 | NUR ---
Pt ate all of his breakfast and went back to sleep. He is malodorous. He took all medications as prescribed. He does not speak except for very short answers. He has been asleep most of the morning. Scanner for meds not working correctly so some meds directly administered.
--- NOTE | 2018-12-17 09:36 | NUR ---
Note chandaalex in EDM - 12/17/18 at 0939 by KANDACE Pt awake for breakfast. He ate very little. He is tearful and provided tissues. He reports that he broke up with his boyfriend during the last month and is wanting to go to an inpatient [facility] hospital. He is cooperative and goes between crying and smiling. Mood is labile. He took all medications as prescribed
--- NOTE | 2018-12-17 10:15 | NUR ---
Pt is uncommunicative. He continues to sleep through this shift. He shows no signs of distress. His respirations are even and unlabored.
--- NOTE | 2018-12-17 12:25 | NUR ---
Pt laying in bed in no distress. He has been asleep for most of the shift. He is currently on his left side. Respirations are even and unlabored.
--- NOTE | 2018-12-17 13:16 | NUR ---
Pt ate all of lunch and went back to sleep. He is on his left side. His respirations are even and unlabored
--- NOTE | 2018-12-17 15:17 | NUR ---
Pt continues to sleep on his back. His respirations are even and unlabored. He shows no signs of distress.
--- NOTE | 2018-12-17 16:36 | NUR ---
Pt continues to sleep. He is no apparent distress. His respirations are even and unlabored
--- NOTE | 2018-12-17 17:13 | NUR ---
Pt continues to sleep. He appears to be in no distres and his respiartions are unlabored and even.
--- NOTE | 2018-12-17 18:30 | NUR ---
Patient sleeping on left side. No restlessness observed. Continue to monitor.
[2018-12-17] MEDS: aripiprazole 5mg tablet PO SCH (20:17)
--- NOTE | 2018-12-17 20:20 | NUR ---
Patient sleeping but easily awakens to voice. Patient c/o feeling suicidal and states he would shoot himself if he had a chance. Patient appears to be developmentally delayed. Patient appears depressed. Continue to monitor.
--- NOTE | 2018-12-17 23:08 | NUR ---
Patient sleeping supine. No restlessness observed. Continue to monitor.
--- NOTE | 2018-12-18 01:18 | NUR ---
Patient sleeping on left side. RN placed a warm blanket on patient. Continue to monitor.
--- NOTE | 2018-12-18 04:47 | NUR ---
Patient sleeping on right side. No distress observed. Continue to monitor.
--- NOTE | 2018-12-18 06:30 | NUR ---
Pt lying in bed sleeping at this time. Will continue to monitor.
--- NOTE | 2018-12-18 08:25 | NUR ---
Pt awake at bedside eating breakfast tray. Pt reports he is "feeling okay." AM medications administered as ordered by MD. Pt was asked if he felt as though he would harm himself, and he responded "Yes, the minute I leave here I would jump in front of a train." Pt states "Sarah tried it before but I couldn't do it." Asked pt if he had family/friends that can provide support to him, and he stated "No." Pt up to bathroom when needed, and sleeping in bed between trips to bathroom. Will continue to monitor patient.
[2018-12-18] MEDS: divalproex sod 250mg ER (24-hour) tablet PO SCH ×2 (09:05→19:34)
[2018-12-18] MEDS: gabapentin 300mg capsule PO SCH ×2 (09:05→13:20)
--- NOTE | 2018-12-18 11:33 | NUR ---
Pt awake. Up to the bathroom. Requested warm blanket at this time. No complaints/issues at this time. Pt states "I don't need anything." Will continue to monitor pt closely throughout the day.
--- NOTE | 2018-12-18 13:20 | NUR ---
Administered medications per MD order. Pt requesting bread pudding that was not on his lunch tray. TC placed to dietary. Informed by dietary that they are out of bread pudding. Pt had no further requests at this time. Pt sleeping in bed. Will continue to monitor pt 1:1 observation in direct line of vision.
--- NOTE | 2018-12-18 15:10 | NUR ---
Pt sleeping at this time. Observation 1:1 in direct line of patient.
--- NOTE | 2018-12-18 16:41 | NUR ---
Sleeping in bed at this time. Will continue 1:1 observation of pt within direct line of vision.
--- NOTE | 2018-12-18 18:01 | NUR ---
Pt reported this morning his last BM was 12/15/18. Pt states he has a little bit of pain and he has been trying to have a BM today. Appetite good. Gave pt prune juice warmed with applesauce. Pt drank 100%. Informed pt we may need to contact MD if he is unable to have a BM later tonight. Will continue to monitor.
[2018-12-18 18:21] VITALS: BP 99/54
--- NOTE | 2018-12-18 19:06 | NUR ---
rcd pt awake in bed,calm and pleasant.needs attended.
[2018-12-18] MEDS: aripiprazole 5mg tablet PO SCH (19:35)
--- NOTE | 2018-12-18 20:08 | NUR ---
dc paper instructions given ,all questions answered.clothing and shoes given.brown bag given resources form given.dcd in fair condition.
== END 2018-12-18 20:20 | disposition home or self-care (01) ==
LOC: ER 13:07
DX: R45.851 Suicidal ideations (principal); F31.9 Bipolar disorder, unspecified; F15.90 Other stimulant use, unspecified, uncomplicated; F41.9 Anxiety disorder, unspecified; F20.9 Schizophrenia, unspecified; J45.909 Unspecified asthma, uncomplicated; F12.90 Cannabis use, unspecified, uncomplicated; Z88.0 Allergy status to penicillin; Z88.1 Allergy status to other antibiotic agents; Z79.899 Other long term (current) drug therapy; Z59.0 Homelessness
CPT/HCPCS: 36415; 80053; 80164; 80305; 80320; 81003; 85025; 99285

== ENCOUNTER 2018-12-26 10:20 | Inpatient (IN) | payer MEDICAID ==
[~2018-12-26] VITALS: Ht 175.3 cm; Wt 57.4 kg
[~2018-12-26 10:20] MED LIST changes: +DIVA125T31 PO; -DIVA250T4 PO
[2018-12-26] MEDS ORDERED: tuberculin, purif. prot. deriv. 5 units/0.1ml ID ONE (11:05)
[2018-12-26] MEDS ORDERED: acetaminophen 325mg tablet PO PRN ×2 (11:05)
[2018-12-26] MEDS ORDERED: LORazepam 1 MG tablet PO PRN (11:05)
[2018-12-26] MEDS ORDERED: mag hydrox/Alum hydrox/simeth 30ml oral suspension PO PRN (11:05)
[2018-12-26] MEDS ORDERED: loperamide 2mg capsule PO PRN (11:05)
[2018-12-26] MEDS: gabapentin 300mg capsule PO SCH ×2 (13:00→20:09)
[2018-12-26 14:08] VITALS: BP 113/62
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
[2018-12-26] MEDS: aripiprazole 5mg tablet PO SCH (20:09)
[2018-12-26] MEDS: divalproex sodium 250mg tablet PO SCH (20:09)
[2018-12-26] MEDS: hydrOXYzine 25 MG tablet PO PRN (20:11)
[2018-12-26 20:43] VITALS: BP 117/58
--- NOTE | 2018-12-27 02:08 | NUR ---
Nursing Progress Note: Legal hold: 5150 Client on involuntary status for DTS Report received from Avni CALL with use of SBAR Why are they here: Patient presented to the ED with complaints of suicidal ideation. Patient has a history of suicidal ideation. Patient reports he tried to "cut his hand this morning". Patient denies recent illness. Patient notes he last used methamphetamine yesterday. He is homeless and lives on the street. Assessment What has happened this shift: Pt awake in bed at start of shift. Pleasant and cooperative. Pt verbalized a great deal of anxiety that he was going to be "kicked out" on Tuesday when his hold . "If I Have to go back out on the streets I will slit my wrists and throw myself in front of a train." Reassured that he would not have to leave as soon as his 5150 . It might be possible that our social workers might find him somewhere to live after he left here. He seemed able to calm down came to group room for snack went to sleep right afterwards. Said he was very tired. S/I: yes H/I:no A/VH: denies Sleep: sleeping at this time ADL's: independent Group attendance: came for snack, did a little socializing Were meds taken: yes Any med S/E none Mental Status Exam Appearance: thin unkempt Eye contact: good Behavior: cooperative Speech: clear Mood: anxious Affect: Thought process: slow Thought Content: concerned about living out on the street again Cognition: slow Insight: poor Judgment: poor Interventions PRN's used: Atarax Therapeutic interventions: 1:1 therapeutic assessment, maintained therapeutic milieu, provided active listening with positive feedback, medication education administration and monitoring for s/e, monitored for change in behavior and needed interventions. Restraints/seclusion/emergency medication: None Restraints/seclusion/emergency medication: NA Justification of Continued Inpatient Treatment: The patient has poor judgment and is a danger to himself. Continued therapeutic support and medication management needed to provide stabilization, prevent decompensation, decreasing risk to patient and readmittance.
[2018-12-27] MEDS: gabapentin 300mg capsule PO SCH ×3 (07:39→20:30)
[2018-12-27] MEDS: divalproex sodium 250mg tablet PO SCH ×2 (07:39→20:29)
[2018-12-27 07:46] VITALS: BP 98/58
[2018-12-27 10:29] VITALS: BP 109/69
[2018-12-27 11:54] LABS: HEMOGLOBIN A1C 5.1 % (4.5-6.2)
[2018-12-27 12:00] LABS: CHOL/HDL RATIO 3.9 (0.00-4.99); CHOLESTEROL 145 MG/DL (0-200); HDL CHOLESTEROL 37 MG/DL (35-60); LDL CHOLESTEROL 94 MG/DL (50-100); TRIGLYCERIDES 225 MG/DL (20-135)
--- NOTE | 2018-12-27 15:21 | NUR ---
Nursing Progress Note: Legal hold: 5150 Client on involuntary status for DTS Report received from Kat CALL with use of SBAR Why are they here: Patient presented to the ED with complaints of suicidal ideation. Patient has a history of suicidal ideation. Patient reports he tried to "cut his hand this morning". Patient denies recent illness. Patient notes he last used methamphetamine yesterday. He is homeless and lives on the street. Assessment What has happened this shift: Patient is observed sleeping at change of shift. Prior to breakfast he is easily awoken. He reports that he slept well the night before. He takes his morning medication without issue. He eats his breakfast with others in the group room and attends both groups. He states that he cannot wait to get out of here and that he no longer feels suicidal. He says that the change is that he has been thinking about his sisters and how he wants to be there for them. He says that when he was 1.5yrs old both his parents committed suicide in front of him and his 2 sisters,who were 2 and 4 years old. He says that they were going to be split up and instead he take care of them. He says that they call him dad. One is now 18 and wants to get . He reports he wants to be more involved with them. He states he does have a plan to get into a [place] [facility] and return to work. S/I: denies H/I: no A/VH: none reported Sleep: 8 ADL's: independent Group attendance: yes attended both groups today Were meds taken: yes Any med S/E: none Mental Status Exam Appearance: thin, disheveled, long fingernails Eye contact: direct Behavior: cooperative, friendly Speech: clear soft tone, increased rate and rhythm Mood: good Affect: restricted Thought process: disorganized, poor historian (mixing of times of events, ages) as above Thought Content: focused on reconnecting with sisters Cognition: slow Insight: poor Judgment: poor Interventions PRN's used: none Therapeutic interventions: 1:1 therapeutic assessment, maintained therapeutic milieu, provided active listening with positive feedback, provided medication education as needed, monitored for change in behavior and needed interventions. Q15 minute safety checks. Restraints/seclusion/emergency medication: None Justification of Continued Inpatient Treatment: The patient has poor judgment and is a danger to himself. Continued therapeutic support and medication management needed to provide stabilization, prevent decompensation, decreasing risk to patient and readmittance.
[2018-12-27] MEDS: magnesium hydroxide 30ml (MOM) UD suspension PO PRN (20:30)
[2018-12-27] MEDS: aripiprazole 5mg tablet PO SCH (20:30)
[2018-12-27 20:52] VITALS: BP 115/68
[2018-12-27] MEDS: hydrOXYzine 25 MG tablet PO PRN (21:06)
--- NOTE | 2018-12-28 01:55 | NUR ---
Nursing Progress Note: Legal hold: 5150 Client on involuntary status for DTS Report received from nurse with use of SBAR: Sánchez RN Why are they here: Patient presented to the ED with complaints of suicidal ideation, and a plan to cut his wrists. Patient has a history of suicidal ideation. He also reports a hx of depression, however has been feeling more depressed since his divorce, and has been using meth to distract his mind. Pt. notes he last used methamphetamine yesterday. Pt. is homeless, and this also adds to his depression and anxiety. He reports A/H that tell him to harm himself. Pt. has a hx of Bipolar, Schizophrenia, and seizure D/O. Assessment What has happened this shift: Pt. up in the hallway at the beginning of the shift and later in his room using the phone. This automobile and property underwriter introduced self and established rapport, pt. presents as cooperative with restlessness. 1:1 completed at bedside, he denies S/I, depression, or anxiety at this time. Pt. states, "Look at the weather outside, I've been on the streets for six years! I'm done with that!" He reports he is a client of [facility] and they are going to help him get placed at a [facility] called [facility] possibly on Tuesday. Pt. also reports a plan to go stay at [facility] for a few days if [facility] is unable to accept him right away, states, "That will give me a place to sleep and three meals." This automobile and property underwriter questioned pt. regarding his plans to abstain from substance abuse. Pt. states adamantly, "I'm done with using drugs! I already ruined my teeth, look at them. I even saw my neighbor overdose, and I don't want to end up like that." Pt. initially has a slightly elevated temperature at the beginning of the shift, and reports that he has not had a BM X2 days and is feeling stomach discomfort. Upon auscultation, bowl sounds active X4 quadrants, and pt. reports flatus. Administered prune juice, MOM, and Tylenol upon request, and will continue to monitor. Temperature rechecked at HS and WNL, will endorse to AM shift. S/I, H/I: Denies A/VH: Pt. reports on-going A/H that tell him to hurt himself, however he reports he is able to ignore them Sleep: Pt. reports insomnia, and requests PRN Atrax to help quiet his mind, with effectiveness ADL's: Independent Group attendance: Pt. reports he attends groups Were meds taken: Yes Any med S/E: Pt. had a slight elevated temperature at the beginning of the shift, however rechecked and WNL Mental Status Exam Appearance: Slightly disheveled, however appropriately dressed in hospital attire. Eye contact: Good Behavior: Cooperative with restlessness Speech: Soft and slow, but WNL Mood: Pleasant Affect: Animated Thought process: Linear and goal directed Thought Content: Ongoing A/H and preoccupation with discharge Cognition: A&O X4 Insight: Fair Judgment: Fair Interventions PRN's used: Tylenol, MOM, and Atrax Therapeutic interventions: Introduced self and established rapport, maintained a safe and supportive environment, ensured contract for safety, provided clear and simple instructions, provided medication education and encouragement to abstain from substance abuse, monitored for changes in behavior and need for intervention, and maintained Q 15 min safety checks. Restraints/seclusion/emergency medication: N/A Justification of Continued Inpatient Treatment: Pt. requires a safe and supportive environment, medication adjustments, and discharge planning.
[2018-12-28 08:00] VITALS: BP 114/60
[2018-12-28] MEDS: divalproex sodium 250mg tablet PO SCH ×2 (08:22→20:50)
[2018-12-28] MEDS: gabapentin 300mg capsule PO SCH ×3 (08:22→20:50)
[2018-12-28] MEDS: magnesium hydroxide 30ml (MOM) UD suspension PO PRN ×2 (09:00→20:58)
--- NOTE | 2018-12-28 16:35 | NUR ---
Nursing Progress Note: Legal hold: 5150 Client on involuntary status for DTS Report received from Kat CALL with use of SBAR Why are they here: Patient presented to the ED with complaints of suicidal ideation. Patient has a history of suicidal ideation. Patient reports he tried to "cut his hand this morning". Patient denies recent illness. Patient notes he last used methamphetamine yesterday. He is homeless and lives on the [address]. Assessment What has happened this shift: Patient is observed sleeping at change of shift. He awakens for breakfast and when he is done he returns to his room to rest. Patient reports that he does not feel well, he is afebrile this morning. He states he has not had a BM since 12/26. He states he had MOM and prune juice the night before without results, requests DALTON HYDE administered. Later patient reports that he had 2 small BMs but would like more MOM. He is observed on the phone talking with someone from the halfway [facility], patient states that he is setting up plans for cigar packer and picker tomorrow after his discharge. When told we do not know when/if he will be discharge patient becomes mildly agitated stating You just ruined my interview! Patient is anxious about getting into the halfway, after reassurance patient quietly returns to his room. S/I: denies H/I: no A/VH: denies Sleep: 8hrs NOC ADL's: independent Group attendance: yes Were meds taken: yes Any med S/E: none Mental Status Exam Appearance: thin, disheveled, long fingernails Eye contact: direct Behavior: cooperative, friendly Speech: clear soft tone, normal rate and rhythm Mood: good, mild anxity r/t discharge Affect: appropriate to mood Thought process: linear Thought Content: focused on discharge Cognition: impaired Insight: poor Judgment: poor Interventions PRN's used: MOM Therapeutic interventions: 1:1 therapeutic assessment, maintained therapeutic milieu, provided active listening with positive feedback, provided medication education as needed, monitored for change in behavior and needed interventions. Q15 minute safety checks. Restraints/seclusion/emergency medication: None Justification of Continued Inpatient Treatment: The patient has poor judgment and is a danger to himself. Continued therapeutic support and medication management needed to provide stabilization, prevent decompensation, decreasing risk to patient and readmittance.
[2018-12-28 19:00] VITALS: BP 127/79
[2018-12-28] MEDS: hydrOXYzine 25 MG tablet PO PRN (20:50)
[2018-12-28] MEDS: aripiprazole 5mg tablet PO SCH (20:50)
--- NOTE | 2018-12-29 01:14 | NUR ---
Nursing Progress Note: Legal hold: 5150 Client on involuntary status for DTS Report received from nurse with use of SBAR: DALTON Charles Why are they here: Patient presented to the ED with complaints of suicidal ideation, and a plan to cut his wrists. Patient has a history of suicidal ideation. He also reports a hx of depression, however has been feeling more depressed since his divorce and the loss of his foster mom, and has been using meth to distract his mind. Pt. notes he last used methamphetamine yesterday. Pt. is homeless, and this also adds to his depression and anxiety. He reports A/H that tell him to harm himself. Pt. has a hx of Bipolar, Schizophrenia, and seizure D/O. Assessment What has happened this shift: Pt. up in the hallway at the beginning of the shift, affect is blunted, and he requests to take a shower. This account underwriter finished setting up shower for pt. and asked him if he was ready? Pt. appeared startled and stated, "For what?" This account underwriter reminded pt. of his request to take a shower and he complied. Following shower, pt. helped this account underwriter to change his bedding, and he requested to have all of his clothing washed. Pt. continues to report that he will be leaving tomorrow to [facility]. 1:1 completed at bedside, pt. continues to deny S/I, however reports some depression and anxiety r/t "the unknown when I leave." Pt. also reports ongoing A/H, however states he is able to ignore them. He attends snack, and afterwards is animated; joking with this account underwriter and dancing outside his room. Pt. later presents with restlessness at and requests more MOM r/t only having a small BM X2 today. This account underwriter provided education to pt. regarding time at which next dose of MOM would be available, pt. then reports flatus and indigestion, PRN Maalox administered with effectiveness. However, pt. continued to perseverate on MOM and restlessness increased, he was administered MOM and Atrax with effectiveness, will continue to monitor. S/I, H/I: Denies A/VH: Pt. reports on-going A/H which he is able to ignore Sleep: Pt. reports he slept well last night ADL's: Independent Group attendance: Pt. reports he attends groups Were meds taken: Yes Any med S/E: None Mental Status Exam Appearance: Freshly showered and dressed appropriately in hospital attire Eye contact: Good Behavior: Cooperative, restless, and guarded Speech: Soft and slow, but WNL Mood: Labile Affect: Labile Thought process: Linear and goal directed Thought Content: Ongoing A/H and preoccupation with discharge Cognition: A&O X4 Insight: Fair Judgment: Fair Interventions PRN's used: Maalox, MOM, and Atrax Therapeutic interventions: Provided active listening, maintained a safe and supportive environment, ensured contract for safety, provided clear and simple instructions, provided medication education, encouraged independent performance of ADLs, monitored for changes in behavior and need for intervention, and maintained Q 15 min safety checks. Restraints/seclusion/emergency medication: N/A Justification of Continued Inpatient Treatment: Pt. requires a safe and supportive environment, medication adjustments, and discharge planning.
[2018-12-29 08:00] VITALS: BP 120/70
[2018-12-29] MEDS: divalproex sodium 250mg tablet PO SCH (08:03)
[2018-12-29] MEDS: gabapentin 300mg capsule PO SCH ×2 (08:03→12:32)
--- NOTE | 2018-12-29 11:14 | NUR ---
Nursing Progress Note: Legal hold: 5150 Client on involuntary status for DTS Report received from nurse with use of SBAR: Destiny Worrell RN Why are they here: Patient presented to the ED with complaints of suicidal ideation, and a plan to cut his wrists. Patient has a history of suicidal ideation. He also reports a hx of depression, however has been feeling more depressed since his divorce and the loss of his foster mom, and has been using meth to distract his mind. Pt. notes he last used methamphetamine yesterday. Pt. is homeless, and this also adds to his depression and anxiety. He reports A/H that tell him to harm himself. Pt. has a hx of Bipolar, Schizophrenia, and seizure D/O. Assessment What has happened this shift: Pt up for breakfast, animated, asking who his nurse was. Pt wanted his medications before breakfast. Pt denied depression and SI, stated he was anxious but anxious about "not knowin' what's gonna happen." Pt excited about possibility of being accepted by the [facility] program. He states he has an interview today. Pt denied HI/AH/VH. Spoke with SW during flash meeting, plan is for pt to be discharged to the [facility] today. Kuldip Sterling will interview him and they will assist him in transitioning from the [facility] to [facility] sometime next week if pt is able to maintain his sobriety. S/I, H/I: Pt denies A/VH: Pt denies Sleep: Pt slept 7 hours last night ADL's: Independent, pt showered this morning Group attendance: yes Were meds taken: Yes Any med S/E: None noted or reported Mental Status Exam Appearance: Clean, appropriate Eye contact: Good Behavior: Cooperative, restless Speech: Clear, audible Mood: good Affect: WNL Thought process: Linear and goal directed Thought Content: Focused on discharge, hoping to get into [facility] Cognition: A&O X4 Insight: Fair Judgment: Fair Interventions PRN's used: None Therapeutic interventions: 1:1 assessment, therapeutic conversation, positive reinforcement, medication administration/monitoring/education, maintained Q 15 min safety checks. Restraints/seclusion/emergency medication: N/A Justification of Continued Inpatient Treatment: Plan is for pt to discharge to the [facility] today where he will be followed by Kuldip Sterling.
[2018-12-29] MEDS: hydrOXYzine 25 MG tablet PO PRN (13:32)
[2018-12-29] MEDS ORDERED: ARIP30TA7 PO (13:58)
[2018-12-29] MEDS ORDERED: DIVA250T4 PO (13:58)
[2018-12-29] MEDS ORDERED: GABA-532 PO (13:58)
--- NOTE | 2018-12-29 16:25 | NUR ---
DISCHARGE NOTE: Pt discharged, [facility] front load trash truck driver picked him up, ambulated off the unit accompanied by PCT. Plan is for front load trash truck driver to take pt to board and care interview at [facility], to [facility] on [address] to picking belt operator prescriptions and then to the [facility]. [facility] to follow pt and arrange for him to go to [facility] from the [facility] some time next week. Discharge instructions; medications and follow up appointments/care reviewed with pt, pt expressed understanding. All belongings sent with pt.
== END 2018-12-29 16:25 | disposition short-term general hospital (02) | DRG 750 ==
LOC: ADULT MH 10:20
PROVIDERS: ADMIT Psychiatry & Neurology Psychiatry; ATTEND Psychiatry & Neurology Psychiatry
DX: F25.0 Schizoaffective disorder, bipolar type (principal); R45.851 Suicidal ideations; G40.909 Epilepsy, unspecified, not intractable, without status epilepticus; R00.1 Bradycardia, unspecified; F12.90 Cannabis use, unspecified, uncomplicated; F15.10 Other stimulant abuse, uncomplicated; F17.210 Nicotine dependence, cigarettes, uncomplicated; F41.9 Anxiety disorder, unspecified; J45.909 Unspecified asthma, uncomplicated; Z59.0 Homelessness; Z79.899 Other long term (current) drug therapy; Z88.1 Allergy status to other antibiotic agents; Z88.0 Allergy status to penicillin
CPT/HCPCS: 36415; 80061; 83036; 87070; 99285; Q0177

== ENCOUNTER 2019-01-21 04:36 | Emergency (ER) | payer MEDICAID ==
[~2019-01-21] VITALS: Ht 175.3 cm; Wt 59.1 kg
[~2019-01-21 04:36] MED LIST changes: -DIVA125T31 PO; +DIVA250T4 PO
[2019-01-21 04:43] VITALS: BP 119/82
--- NOTE | 2019-01-21 04:48 | NUR ---
CONTACTED GEOVANNA FOR CASE #[id number]
== END 2019-01-21 05:24 | disposition home or self-care (01) ==
LOC: ER 04:36
DX: R51 Headache (principal); F12.90 Cannabis use, unspecified, uncomplicated; F15.90 Other stimulant use, unspecified, uncomplicated; J45.909 Unspecified asthma, uncomplicated; F17.210 Nicotine dependence, cigarettes, uncomplicated; Z59.0 Homelessness; Z88.0 Allergy status to penicillin; Z88.1 Allergy status to other antibiotic agents; Z88.3 Allergy status to other anti-infective agents; Z91.011 Allergy to milk products; Y04.0XXA Assault by unarmed brawl or fight, initial encounter; Y93.89 Activity, other specified; Y92.89 Other specified places as the place of occurrence of the external cause; Y99.9 Unspecified external cause status
CPT/HCPCS: 99283

== ENCOUNTER 2019-01-27 08:35 | Emergency (ER) | payer MEDICAID ==
[~2019-01-27] VITALS: Ht 175.3 cm; Wt 57.0 kg
[2019-01-27 08:53] VITALS: BP 127/77
[2019-01-27] MEDS ORDERED: DIVA500T2 PO (08:59)
[2019-01-27] MEDS ORDERED: GABA-532 PO (08:59)
[2019-01-27] MEDS ORDERED: ARIP30TA7 PO (08:59)
== END 2019-01-27 09:13 | disposition home or self-care (01) ==
LOC: ER 08:36
DX: R56.9 Unspecified convulsions (principal); Z76.0 Encounter for issue of repeat prescription; J45.909 Unspecified asthma, uncomplicated; F12.90 Cannabis use, unspecified, uncomplicated; F15.90 Other stimulant use, unspecified, uncomplicated; Z88.0 Allergy status to penicillin; Z88.1 Allergy status to other antibiotic agents; Z91.011 Allergy to milk products; Z79.899 Other long term (current) drug therapy; Z59.0 Homelessness
CPT/HCPCS: 99284

== ENCOUNTER 2019-03-06 14:04 | Emergency (ER) | payer MEDICAID ==
[~2019-03-06] VITALS: Ht 175.3 cm; Wt 56.0 kg
[~2019-03-06 14:04] MED LIST changes: +DIVA500T2 PO; +ERYT1OIN6 RIGHTEYE
[2019-03-06 16:35] VITALS: BP 117/74
== END 2019-03-06 16:36 | disposition home or self-care (01) ==
LOC: ER 14:04
DX: R07.89 Other chest pain (principal); J45.909 Unspecified asthma, uncomplicated; F41.9 Anxiety disorder, unspecified; F31.9 Bipolar disorder, unspecified; F20.9 Schizophrenia, unspecified; F12.90 Cannabis use, unspecified, uncomplicated; F15.90 Other stimulant use, unspecified, uncomplicated; Z86.69 Personal history of other diseases of the nervous system and sense organs; Z59.0 Homelessness; Z88.0 Allergy status to penicillin; Z88.1 Allergy status to other antibiotic agents; Z88.8 Allergy status to other drugs, medicaments and biological substances; Z79.899 Other long term (current) drug therapy
CPT/HCPCS: 93005; 99283

== ENCOUNTER 2019-03-07 01:18 | Emergency (ER) | payer MEDICAID ==
[~2019-03-07] VITALS: Ht 175.3 cm; Wt 52.0 kg
[2019-03-07] MEDS ORDERED: acetaminophen 325mg tablet PO ONE (02:10)
[2019-03-07 02:54] VITALS: BP 138/72
== END 2019-03-07 02:57 | disposition home or self-care (01) ==
LOC: ER 01:19
DX: R07.89 Other chest pain (principal); J45.909 Unspecified asthma, uncomplicated; F41.9 Anxiety disorder, unspecified; F31.9 Bipolar disorder, unspecified; F12.90 Cannabis use, unspecified, uncomplicated; F15.90 Other stimulant use, unspecified, uncomplicated; Z88.0 Allergy status to penicillin; Z88.1 Allergy status to other antibiotic agents; Z91.011 Allergy to milk products; Z79.899 Other long term (current) drug therapy; Z59.0 Homelessness
CPT/HCPCS: 93005; 99283

== ENCOUNTER 2019-03-17 17:59 | Emergency (ER) | payer MEDICAID ==
[~2019-03-17] VITALS: Ht 175.3 cm; Wt 55.9 kg
[2019-03-17 18:52] LABS: BASOPHILS # (AUTO) 0.1 X10'3 (0-0.2); BASOPHILS % (AUTO) 1.2 % (0-1); EOSINOPHILS # (AUTO) 0.2 X10'3 (0-0.9); EOSINOPHILS % (AUTO) 2.3 % (0-6); HEMATOCRIT 42.7 % (42.0-52.0); HEMOGLOBIN 14.3 g/dl (14.0-17.9); LYMPHOCYTES # (AUTO) 2.6 X10'3 (1.1-4.8); LYMPHOCYTES % (AUTO) 31.2 % (21-51); MEAN CORPUSCULAR HGB CONC 33.5 g/dL (33.0-36.5); MEAN CORPUSCULAR VOLUME 86.6 FL (78-98); MEAN PLATELET VOLUME 8.9 FL (7.4-10.4); MONOCYTES # (AUTO) 0.7 X10'3 (0-0.9); MONOCYTES % (AUTO) 8.5 % (2-12); NEUTROPHILS # (AUTO) 4.7 X10'3 (1.8-7.7); NEUTROPHILS % (AUTO) 56.8 % (42-75); PLATELET COUNT 245 X10'3 (140-440); RED BLOOD COUNT 4.93 X10'6 (4.70-6.10); RED CELL DISTRIBUTION WIDTH 13.9 % (11.5-14.5); WHITE BLOOD COUNT 8.3 X10'3 (4.5-11.0)
--- NOTE | 2019-03-17 19:00 | NUR ---
Pt stated he has had suicidal ideation for the last 5 days. Pt cooperated with urine sample.
[2019-03-17 19:04] LABS: ALANINE AMINOTRANSFERASE 24 U/L (12-78); ALBUMIN 4.1 G/DL (3.4-5.0); ALBUMIN/GLOBULIN RATIO 1.3 (1.1-1.5); ALKALINE PHOSPHATASE 53 IU/L (46-116); ANION GAP 8 (8-16); ASPARTATE AMINO TRANSFERASE 22 U/L (10-37); BILIRUBIN,TOTAL 0.7 MG/DL (0.1-1.0); BLOOD UREA NITROGEN 19 MG/DL (7-18); CALCIUM 9.4 MG/DL (8.5-10.1); CHLORIDE 108 MMOL/L (99-107); CREATININE 1.12 MG/DL (0.60-1.10); ETHANOL < 0.010 GM/DL (0.0-0.010); GLUCOSE 105 MG/DL (70-104); POTASSIUM 3.7 MMOL/L (3.5-5.1); SODIUM 146 MMOL/L (135-145); TOTAL CARBON DIOXIDE 29.8 MMOL/L (24-32); TOTAL PROTEIN 7.3 G/DL (6.4-8.2); eGFR 78 ML/MIN
--- NOTE | 2019-03-17 19:22 | NUR ---
Pt given personal hygiene products to perform evening toilet.
[2019-03-17] MEDS ORDERED: diphenhydrAMINE 25mg capsule PO ONE (20:10)
[2019-03-17 20:18] LABS: URINE AMPHETAMINE SCREEN POSITIVE (Neg); URINE BARBITUATE SCREEN NEGATIVE (Neg); URINE BENZODIAZEPINES SCREEN NEGATIVE (Neg); URINE CANNABINOID SCREEN POSITIVE (Neg); URINE COCAINE SCREEN NEGATIVE (Neg); URINE METHADONE SCREEN NEGATIVE (Neg); URINE OPIATE SCREEN NEGATIVE (Neg); URINE PHENCYCLIDINE SCREEN NEGATIVE (Neg)
--- NOTE | 2019-03-17 20:55 | NUR ---
Packet faxed to [facility]. Confirmed receipt of packet with Gene @ [facility] office.
--- NOTE | 2019-03-17 20:56 | NUR ---
Pt itching and slapping his right arm in exacerated movements. One small white bump assessed on pt's arm. Pt does not report itching anywhere else. Pt does report using meth "all day yesterday". Cream and ice packs given, order for benadryl obtained and administered.
--- NOTE | 2019-03-17 21:49 | NUR ---
Copy of [id number] faxed to [facility] office. Confirmed receipt of [id number] with Gene.
[2019-03-18] MEDS ORDERED: ARIP30TA3 (03:41)
[2019-03-18] MEDS ORDERED: DIVA500T2 PO (03:43)
[2019-03-18] MEDS ORDERED: GABA-532 PO (03:44)
[2019-03-18] MEDS ORDERED: ARIP30TA7 PO (03:54)
[2019-03-18] MEDS: gabapentin 300mg capsule PO SCH ×2 (08:03→16:06)
[2019-03-18] MEDS: divalproex sodium 500mg tablet.DR PO SCH ×2 (08:03→20:49)
--- NOTE | 2019-03-18 08:13 | NUR ---
RN woke pt. up for meds and breakfast. Pt. cooperative. Appears fatigued.
--- NOTE | 2019-03-18 10:17 | NUR ---
Pt. lying supine with eyes closed and even, unlabored respirations.
--- NOTE | 2019-03-18 13:12 | NUR ---
Pt. lying supine in bed.
--- NOTE | 2019-03-18 14:40 | NUR ---
Pt. lying in bed with eyes closed.
--- NOTE | 2019-03-18 16:11 | NUR ---
RN woke pt. up for 1600 med. Pt. remains sleepy.
--- NOTE | 2019-03-18 16:29 | NUR ---
[facility] called to inquire about pt.
--- NOTE | 2019-03-18 17:54 | NUR ---
Pt. cooperative with vital signs. Pt. goes back to sleep quickly after being woken up.
[2019-03-18 17:58] VITALS: BP 116/80
--- NOTE | 2019-03-18 19:05 | NUR ---
Samson from [facility] office called and reports the patient has placement at [facility] pending a UA and TSH. UA is already completed and Samson is informed that our policy is typically every 6 months for a TSH screening. He states that the accepting facility still needs it. Dr. Jerome notified and order placed. Lab contacted to see if they can run the value if a specimen is collected. Lab is unsure at this time but report that they will try.
[2019-03-18 19:47] LABS: CLARITY,URINE CLOUDY (Clear); COLOR,URINE YELLOW (Yellow); GLUCOSE, URINE NEGATIVE (Neg); KETONES,URINE NEGATIVE (Neg); LEUKOCYTE ESTERASE ,URINE NEGATIVE (Neg); NITRITES, URINE NEGATIVE (Neg); OCCULT BLOOD,URINE NEGATIVE (Neg); PH,URINE 5.5 (4.8-8.0); PROTEIN,URINE NEGATIVE (Neg); UROBILINOGEN,URINE 0.2 E.U/dL (0.2-1.0)
[2019-03-18 19:50] LABS: UA COLLECTION TYPE CLN CATCH MIDSTREAM
[2019-03-18 19:51] LABS: AMORPHOUS URATES 4+; BACTERIA,URINE NONE SEEN /HPF (Neg); RBC,URINE NONE SEEN /HPF (0-2); SQUAMOUS EPITHELIAL CELL,UR FEW /LPF (FEW); WBC,URINE NONE SEEN /HPF (0-4)
--- NOTE | 2019-03-18 20:18 | NUR ---
UA & TSH faxed to [facility] office as per request. Confirmed receipt of labs with [facility]. [facility] informed this rewriter that the trolley coach driver would be collecting pt at approx. 21.30 hrs for transport to [facility].
[2019-03-18] MEDS ORDERED: aripiprazole 5mg tablet PO SCH (21:00)
--- NOTE | 2019-03-18 21:51 | NUR ---
phoned [facility] to notify them pt got 500mg depakote tonight. did not get abilify which was a new order
== END 2019-03-18 21:45 ==
LOC: ER 18:00
DX: F31.9 Bipolar disorder, unspecified (principal); F29 Unspecified psychosis not due to a substance or known physiological condition; J45.909 Unspecified asthma, uncomplicated; F41.9 Anxiety disorder, unspecified; F12.90 Cannabis use, unspecified, uncomplicated; F15.90 Other stimulant use, unspecified, uncomplicated; Z88.0 Allergy status to penicillin; Z88.1 Allergy status to other antibiotic agents; Z79.899 Other long term (current) drug therapy; Z59.0 Homelessness; Z91.011 Allergy to milk products; Z86.69 Personal history of other diseases of the nervous system and sense organs
CPT/HCPCS: 36415; 80053; 80305; 80320; 81001; 84443; 85025; 99285; Q0163

== ENCOUNTER 2019-03-29 09:57 | Emergency (ER) | payer MEDICAID ==
[~2019-03-29] VITALS: Ht 175.3 cm; Wt 51.4 kg
[~2019-03-29 09:57] MED LIST changes: -DIVA250T4 PO; -ERYT1OIN6 RIGHTEYE
--- NOTE | 2019-03-29 12:01 | NUR ---
Nursing Note: Pt transferred to overflow bed #23 at 1045, ambulatory. No S&S of distress, will continue to monitor.
[2019-03-29 12:22] LABS: BASOPHILS # (AUTO) 0.1 X10'3 (0-0.2); BASOPHILS % (AUTO) 0.9 % (0-1); EOSINOPHILS # (AUTO) 0.2 X10'3 (0-0.9); EOSINOPHILS % (AUTO) 2.5 % (0-6); HEMATOCRIT 41.3 % (42.0-52.0); HEMOGLOBIN 13.7 g/dl (14.0-17.9); LYMPHOCYTES # (AUTO) 2.6 X10'3 (1.1-4.8); LYMPHOCYTES % (AUTO) 38.1 % (21-51); MEAN CORPUSCULAR HEMOGLOBIN 29.2 PG (27.0-31.0); MEAN CORPUSCULAR HGB CONC 33.1 g/dL (33.0-36.5); MEAN CORPUSCULAR VOLUME 88.2 FL (78-98); MONOCYTES # (AUTO) 0.8 X10'3 (0-0.9); MONOCYTES % (AUTO) 11.5 % (2-12); NEUTROPHILS # (AUTO) 3.2 X10'3 (1.8-7.7); PLATELET COUNT 205 X10'3 (140-440); RED BLOOD COUNT 4.68 X10'6 (4.70-6.10); RED CELL DISTRIBUTION WIDTH 14.5 % (11.5-14.5); WHITE BLOOD COUNT 6.7 X10'3 (4.5-11.0)
[2019-03-29 12:28] LABS: CLARITY,URINE SLIGHTLY CLOUDY (Clear); COLOR,URINE YELLOW (Yellow); GLUCOSE, URINE NEGATIVE (Neg); KETONES,URINE NEGATIVE (Neg); LEUKOCYTE ESTERASE ,URINE NEGATIVE (Neg); NITRITES, URINE NEGATIVE (Neg); OCCULT BLOOD,URINE NEGATIVE (Neg); PROTEIN,URINE NEGATIVE (Neg)
[2019-03-29 12:29] LABS: UA COLLECTION TYPE CLN CATCH MIDSTREAM
[2019-03-29 12:37] LABS: MUCUS STRANDS FEW /LPF (Neg); SQUAMOUS EPITHELIAL CELL,UR FEW /LPF (FEW)
[2019-03-29 12:39] LABS: AMORPHOUS PHOSPHATES 2+; BACTERIA,URINE FEW /HPF (Neg); RBC,URINE 0-2 /HPF (0-2); WBC,URINE 0-4 /HPF (0-4)
[2019-03-29 12:43] LABS: ALANINE AMINOTRANSFERASE 26 U/L (12-78); ALBUMIN 3.8 G/DL (3.4-5.0); ALBUMIN/GLOBULIN RATIO 1.2 (1.1-1.5); ALKALINE PHOSPHATASE 50 IU/L (46-116); ANION GAP 5 (8-16); ASPARTATE AMINO TRANSFERASE 20 U/L (10-37); BILIRUBIN,TOTAL 0.4 MG/DL (0.1-1.0); BLOOD UREA NITROGEN 16 MG/DL (7-18); BUN/CREATININE RATIO 19.3 (5.4-32.0); CALCIUM 8.7 MG/DL (8.5-10.1); CHLORIDE 109 MMOL/L (99-107); CREATININE 0.83 MG/DL (0.60-1.10); GLUCOSE 86 MG/DL (70-104); POTASSIUM 4.2 MMOL/L (3.5-5.1); SODIUM 144 MMOL/L (135-145); TOTAL CARBON DIOXIDE 30.1 MMOL/L (24-32); TOTAL PROTEIN 6.9 G/DL (6.4-8.2); eGFR > 90 ML/MIN
[2019-03-29 12:45] LABS: ETHANOL < 0.010 GM/DL (0.0-0.010)
[2019-03-29 12:48] LABS: URINE AMPHETAMINE SCREEN POSITIVE (Neg); URINE BARBITUATE SCREEN NEGATIVE (Neg); URINE BENZODIAZEPINES SCREEN NEGATIVE (Neg); URINE CANNABINOID SCREEN NEGATIVE (Neg); URINE COCAINE SCREEN NEGATIVE (Neg); URINE METHADONE SCREEN NEGATIVE (Neg); URINE OPIATE SCREEN NEGATIVE (Neg); URINE PHENCYCLIDINE SCREEN NEGATIVE (Neg)
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
[2019-03-29] MEDS ORDERED: OLAN20TA3 PO (13:42)
[2019-03-29] MEDS ORDERED: GABA-532 PO (13:42)
[2019-03-29] MEDS ORDERED: OMEP20TA5 PO (13:42)
--- NOTE | 2019-03-29 14:51 | NUR ---
Nursing Note: Pt sitting up in bed, Addendum: 03/29/19 at 1451 by PBROWN Amend: Pt sitting up in bed, RR even and unlabored, no S&S of distress. Extra food tray provided to pt and he is eating. Will continue to monitor.
--- NOTE | 2019-03-29 16:05 | NUR ---
Nursing Note: Pt laying in bed, no S&S of distress, will continue to monitor.
--- NOTE | 2019-03-29 17:44 | NUR ---
Nursing Note: Pt laying in bed on his L side, RR even and unlabored, no S&S of distress, will continue to monitor.
[2019-03-29] MEDS ORDERED: olanzapine 10mg tablet PO SCH (20:00)
--- NOTE | 2019-03-29 20:08 | NUR ---
pt laying in bed in no apparent distress
[2019-03-29] MEDS: divalproex sodium 500mg tablet.DR PO SCH (20:26)
[2019-03-29] MEDS: gabapentin 300mg capsule PO SCH (20:26)
--- NOTE | 2019-03-29 22:01 | NUR ---
pt resting in supine position breaths even and unlabored, in no apparent distress
--- NOTE | 2019-03-29 23:56 | NUR ---
pt resting on back on RA in no apparent distress, breaths even and unlabored
--- NOTE | 2019-03-30 01:49 | NUR ---
pt resting on L. side breaths even and unlabored on RA in no apparent distress
--- NOTE | 2019-03-30 03:56 | NUR ---
pt laying bed uncovered on RA in no apparent distress breaths even and unlabored
[2019-03-30] MEDS: divalproex sodium 500mg tablet.DR PO SCH ×2 (08:19→20:10)
[2019-03-30] MEDS: gabapentin 300mg capsule PO SCH ×3 (08:20→20:10)
[2019-03-30] MEDS: aripiprazole 5mg tablet PO SCH (08:20)
[2019-03-30] MEDS: pantoprazole 40mg Tablet.DR PO SCH (08:20)
--- NOTE | 2019-03-30 08:26 | NUR ---
PT SITTING ON SIDE OF BED EATING BREAKFAST, MORNING MEDS GIVEN, NO NEEDS AT THIS TIME
--- NOTE | 2019-03-30 11:47 | NUR ---
[facility] SPOKE WITH PT AND PT VOICE WAS VERY LOUD AND AGUTATED. PT STATING IF HE WAS LET GO IT WOULD BE ON "YOU" [facility] PROVIDER. I AM GOING TO GO "DO IT". PT ASKED TO PLEASE LOWER HIS VOICE.
--- NOTE | 2019-03-30 19:00 | NUR ---
Patient is attempting to sleep. He is angry but cooperative. He refuses to answer questions at this time.
--- NOTE | 2019-03-30 20:45 | NUR ---
Patient has been compliant with medications. He refuses to allow interview. Patient returns to sleep.
--- NOTE | 2019-03-31 01:21 | NUR ---
Patient up to bathroom and then back to bed. Non verbal with staff.
[2019-03-31 05:45] VITALS: BP 101/69
[2019-03-31] MEDS: aripiprazole 5mg tablet PO SCH (07:20)
[2019-03-31] MEDS: gabapentin 300mg capsule PO SCH ×2 (07:20→13:24)
[2019-03-31] MEDS: divalproex sodium 500mg tablet.DR PO SCH (07:20)
[2019-03-31] MEDS: pantoprazole 40mg Tablet.DR PO SCH (07:20)
--- NOTE | 2019-03-31 07:23 | NUR ---
PT SLEEPING ON LEFT SIDE, RR EVEN AND UNLABORED
--- NOTE | 2019-03-31 08:08 | NUR ---
MARCO AT [facility] STATES CLIENT HAS BEEN ACCEPTED AT [facility]. NO TRANSPORT TIME AVAILABLE YET.
--- NOTE | 2019-03-31 08:44 | NUR ---
PT AWAKE AND EATING BREAKFAST
--- NOTE | 2019-03-31 10:21 | NUR ---
PT SLEEPING ON RIGHT SIDE, RR EVEN AND UNLABORED
--- NOTE | 2019-03-31 10:33 | NUR ---
PT UP TO THE BATHROOM
--- NOTE | 2019-03-31 11:21 | NUR ---
PT SLEEPING ON BACK, RR EVEN AND UNLABORED
--- NOTE | 2019-03-31 12:33 | NUR ---
PT UP TO THE BATHROOM
--- NOTE | 2019-03-31 13:15 | NUR ---
corina from [facility] called and gave picking machine operator time which is [id number] and is going to [facility] in [place] and accepting MD is MD Mirza.
--- NOTE | 2019-03-31 13:29 | NUR ---
SITTING UP AND EATING LUNCH
--- NOTE | 2019-03-31 14:18 | NUR ---
WAITING ON TRANSFER TO [facility] IN [place].
== END 2019-03-31 14:39 ==
LOC: ER 09:57
DX: R45.851 Suicidal ideations (principal); R45.850 Homicidal ideations; F15.10 Other stimulant abuse, uncomplicated; F41.9 Anxiety disorder, unspecified; F31.9 Bipolar disorder, unspecified; F20.9 Schizophrenia, unspecified; J45.909 Unspecified asthma, uncomplicated; F17.200 Nicotine dependence, unspecified, uncomplicated; F12.90 Cannabis use, unspecified, uncomplicated; Z59.0 Homelessness; Z88.0 Allergy status to penicillin; Z88.1 Allergy status to other antibiotic agents; Z88.8 Allergy status to other drugs, medicaments and biological substances; Z79.899 Other long term (current) drug therapy
CPT/HCPCS: 36415; 80053; 80305; 80320; 81001; 84443; 85025; 99285

== ENCOUNTER 2019-04-07 10:53 | Emergency (ER) | payer MEDICAID ==
[~2019-04-07 10:53] MED LIST changes: -ARIP30TA7 PO; +OLAN20TA3 PO; +OMEP20TA5 PO
--- NOTE | 2019-04-07 11:21 | NUR ---
not in lobby
== END 2019-04-07 12:04 | disposition left against medical advice (07) ==
LOC: ER 10:54
DX: Z00.00 Encounter for general adult medical examination without abnormal findings (principal); Z53.21 Procedure and treatment not carried out due to patient leaving prior to being seen by health care provider

== ENCOUNTER 2019-04-22 13:10 | Emergency (ER) | payer MEDICAID ==
[~2019-04-22] VITALS: Ht 175.3 cm; Wt 51.8 kg
[2019-04-22 14:20] LABS: BASOPHILS # (AUTO) 0.1 X10'3 (0-0.2); BASOPHILS % (AUTO) 0.9 % (0-1); EOSINOPHILS # (AUTO) 0.2 X10'3 (0-0.9); EOSINOPHILS % (AUTO) 2.8 % (0-6); HEMATOCRIT 43.3 % (42.0-52.0); HEMOGLOBIN 14.6 g/dl (14.0-17.9); LYMPHOCYTES # (AUTO) 2.8 X10'3 (1.1-4.8); LYMPHOCYTES % (AUTO) 37.6 % (21-51); MEAN CORPUSCULAR HEMOGLOBIN 29.3 PG (27.0-31.0); MEAN CORPUSCULAR HGB CONC 33.7 g/dL (33.0-36.5); MEAN CORPUSCULAR VOLUME 86.8 FL (78-98); MEAN PLATELET VOLUME 8.5 FL (7.4-10.4); MONOCYTES # (AUTO) 1.1 X10'3 (0-0.9); MONOCYTES % (AUTO) 14.3 % (2-12); NEUTROPHILS # (AUTO) 3.3 X10'3 (1.8-7.7); NEUTROPHILS % (AUTO) 44.4 % (42-75); PLATELET COUNT 214 X10'3 (140-440); RED BLOOD COUNT 4.99 X10'6 (4.70-6.10); RED CELL DISTRIBUTION WIDTH 14.8 % (11.5-14.5); WHITE BLOOD COUNT 7.5 X10'3 (4.5-11.0)
--- NOTE | 2019-04-22 14:36 | NUR ---
pt moved from bed 15 to bed 24
[2019-04-22 14:38] LABS: ALANINE AMINOTRANSFERASE 21 U/L (12-78); ALBUMIN 3.9 G/DL (3.4-5.0); ALBUMIN/GLOBULIN RATIO 1.2 (1.1-1.5); ALKALINE PHOSPHATASE 57 IU/L (46-116); ANION GAP 6 (8-16); ASPARTATE AMINO TRANSFERASE 14 U/L (10-37); BILIRUBIN,TOTAL 0.5 MG/DL (0.1-1.0); BLOOD UREA NITROGEN 12 MG/DL (7-18); BUN/CREATININE RATIO 13.6 (5.4-32.0); CALCIUM 8.8 MG/DL (8.5-10.1); CHLORIDE 106 MMOL/L (99-107); CREATININE 0.88 MG/DL (0.60-1.10); GLUCOSE 90 MG/DL (70-104); POTASSIUM 3.9 MMOL/L (3.5-5.1); SODIUM 143 MMOL/L (135-145); TOTAL CARBON DIOXIDE 30.9 MMOL/L (24-32); TOTAL PROTEIN 7.2 G/DL (6.4-8.2); eGFR > 90 ML/MIN
[2019-04-22 14:45] LABS: ETHANOL < 0.010 GM/DL (0.0-0.010)
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
[2019-04-22] MEDS ORDERED: ARIP30TA7 PO (15:07)
[2019-04-22] MEDS ORDERED: [UNRECOGNIZED DRUG - CODE] PO (15:07)
[2019-04-22 15:29] LABS: CLARITY,URINE CLEAR (Clear); COLOR,URINE YELLOW (Yellow); GLUCOSE, URINE NEGATIVE (Neg); KETONES,URINE NEGATIVE (Neg); LEUKOCYTE ESTERASE ,URINE SMALL (Neg); NITRITES, URINE NEGATIVE (Neg); OCCULT BLOOD,URINE NEGATIVE (Neg); PROTEIN,URINE NEGATIVE (Neg)
[2019-04-22 15:31] LABS: URINE AMPHETAMINE SCREEN POSITIVE (Neg); URINE BARBITUATE SCREEN NEGATIVE (Neg); URINE BENZODIAZEPINES SCREEN NEGATIVE (Neg); URINE CANNABINOID SCREEN NEGATIVE (Neg); URINE COCAINE SCREEN NEGATIVE (Neg); URINE METHADONE SCREEN NEGATIVE (Neg); URINE OPIATE SCREEN NEGATIVE (Neg); URINE PHENCYCLIDINE SCREEN NEGATIVE (Neg)
[2019-04-22 15:33] LABS: UA COLLECTION TYPE CLN CATCH MIDSTREAM
[2019-04-22 15:34] LABS: WBC,URINE 0-4 /HPF (0-4)
[2019-04-22 15:35] LABS: BACTERIA,URINE NONE SEEN /HPF (Neg); MUCUS STRANDS FEW /LPF (Neg); RBC,URINE 0-2 /HPF (0-2); SQUAMOUS EPITHELIAL CELL,UR FEW /LPF (FEW)
[2019-04-22] MEDS: lactose-reduced food (Ensure High Protein) 237ml bottle PO SCH (18:00)
--- NOTE | 2019-04-22 19:39 | NUR ---
pt up to bathroom to void, he is cooperative. he had been resting calmly in bedn preciously
[2019-04-22] MEDS: divalproex sodium 500mg tablet.DR PO SCH (20:18)
[2019-04-22] MEDS: olanzapine 10mg tablet PO SCH (20:18)
[2019-04-22] MEDS: gabapentin 300mg capsule PO SCH (20:18)
--- NOTE | 2019-04-22 20:56 | NUR ---
Pt resting comfortably in bed. Pt states he is here for "suicide ideation" pt reports he doesnt feel safe if he leaves. Pt states his plan is to stab himself if he leaves.
--- NOTE | 2019-04-22 23:02 | NUR ---
Pt is laying on his back sleeping rr even and unlabored no s/s distress.
--- NOTE | 2019-04-22 23:40 | NUR ---
Pt up to use the restroom, returned to bed. No needs at this time.
--- NOTE | 2019-04-23 00:59 | NUR ---
Pt is asleep. RR even and unlabored.
--- NOTE | 2019-04-23 01:14 | NUR ---
Note mary alice in ED - 04/24/19 at 0409 by ANDREI The patient is sleeping on his right side. RR wnl, breathing even and unlabored. No s/s of distress.
--- NOTE | 2019-04-23 03:15 | NUR ---
Rcvd call from Sarita at [facility], they will present to the provider and let us know if they plan to accept.
--- NOTE | 2019-04-23 03:16 | NUR ---
Pt is laying in bed w/eyes closed rr even and unlabored no s/s distress.
--- NOTE | 2019-04-23 05:12 | NUR ---
Pt is laying on his back sleeping rr even and unlabored no s/s distress.
--- NOTE | 2019-04-23 06:30 | NUR ---
Asleep upon change of shift observation. Color and breathing WNL. Undisturbed at this time.
--- NOTE | 2019-04-23 08:30 | NUR ---
Awakenend for breakfast. Ate 100% of his meal. All medications administered as ordered including Ensure Nutritional Supplement.
[2019-04-23] MEDS: lactose-reduced food (Ensure Enlive) - 237ml bottle PO SCH ×3 (08:40→18:00)
[2019-04-23] MEDS: lactose-reduced food (Ensure High Protein) 237ml bottle PO SCH (08:40)
[2019-04-23] MEDS: aripiprazole 5mg tablet PO SCH (08:44)
[2019-04-23] MEDS: pantoprazole 40mg Tablet.DR PO SCH (08:44)
[2019-04-23] MEDS: olanzapine 10mg tablet PO SCH ×2 (08:44→21:47)
[2019-04-23] MEDS: gabapentin 300mg capsule PO SCH ×3 (08:45→21:47)
[2019-04-23] MEDS: divalproex sodium 500mg tablet.DR PO SCH ×2 (08:45→21:47)
--- NOTE | 2019-04-23 09:00 | NUR ---
Patient asked what brought him into the hospital. Stated "I'm suicidal, just like every other time. You should know that already about me." Plan is "to walk into traffic." Presents as developementally disabled in thought and speech. Limited insight and judgement.
--- NOTE | 2019-04-23 10:30 | NUR ---
Asleep on left side. Bundled under his covers. In line of sight of staff at all times.
--- NOTE | 2019-04-23 13:00 | NUR ---
Served lunch tray. Ate 100% of his meal. Went to the bathroom. Asked how he was doing. Patient stated "I'm not talking right now." Returned immediately to sleep.
--- NOTE | 2019-04-23 15:53 | NUR ---
Continues to sleep. In no acute distress. In line of sight of staff at all times.
--- NOTE | 2019-04-23 18:01 | NUR ---
Remains asleep in bed at this time.
--- NOTE | 2019-04-23 18:30 | NUR ---
Assumed care of patient. The patient is laying on his right side in no apparent distress.
--- NOTE | 2019-04-23 20:30 | NUR ---
The patient is sleeping on his right side. RR wnl, breathing even and unlabored. No s/s of distress.
--- NOTE | 2019-04-24 01:14 | NUR ---
The patient is sleeping on his left side. RR wnl, breathing even and unlabored. No s/s of distress.
--- NOTE | 2019-04-24 03:14 | NUR ---
Patient up to the bathroom then back to bed. Denies needs.
--- NOTE | 2019-04-24 05:22 | NUR ---
The patient is sleeping on his back. RR wnl, breathing even and unlabored. No s/s of distress.
--- NOTE | 2019-04-24 07:00 | NUR ---
LEROY IS SLEEPING COMFORTABLY. VITALS HAVE BEEN STABLE, NO NEW ISSUES
[2019-04-24] MEDS: lactose-reduced food (Ensure Enlive) - 237ml bottle PO SCH ×3 (08:00→18:00)
--- NOTE | 2019-04-24 09:00 | NUR ---
TRIED TO WAKE UP LEROY TO EAT BREAKFAST AND TAKE HIS MEDS. HE JUST IGNORED ME AND WENT BACK TO SLEEP.
[2019-04-24] MEDS: olanzapine 10mg tablet PO SCH ×2 (10:19→20:20)
[2019-04-24] MEDS: pantoprazole 40mg Tablet.DR PO SCH (10:19)
[2019-04-24] MEDS: aripiprazole 5mg tablet PO SCH (10:19)
[2019-04-24] MEDS: divalproex sodium 500mg tablet.DR PO SCH ×2 (10:19→20:20)
[2019-04-24] MEDS: gabapentin 300mg capsule PO SCH ×3 (10:19→20:20)
--- NOTE | 2019-04-24 10:19 | NUR ---
PT TOOK ALL MEDICATIONS WITHOUT ISSUE, NO S/S OF AGITATION OBSERVED
--- NOTE | 2019-04-24 10:30 | NUR ---
A LITTLE LATE GETTING HIS MEDICATIONS DOWN THIS MORNING BUT HE DID TAKE THEM WITHOUT ISSUE ONCE HE WOKE UP AND HE DID EAT HIS BREAKFAST. HE CONTINUES TO BE SOMNOLENT, NOT INTERACTING, MOSTLY SLEEPING
--- NOTE | 2019-04-24 10:31 | NUR ---
CALLED DIETARY RE: ENSURE NOT SENT UP WITH MEAL, THEY SAID THEY WILL SEND UP
--- NOTE | 2019-04-24 12:09 | NUR ---
breaking primary RN, pt is laying in bed on left side, eyes closed appears to be asleep, regular spont breathing, will continue to monitor
--- NOTE | 2019-04-24 13:00 | NUR ---
LEROY ATE LUNCH AND TOOK HIS NOON DOSE OF NEURONTIN WITHOUT ISSUE. HE IS STILL VERY SOMNOLENT
--- NOTE | 2019-04-24 17:44 | NUR ---
LEROY HAS SLEPT MOST OF THE DAY, GETTING UP INTERMITTENTLY TO USE THE BATHROOM AND GO BACK TO SLEEP. HE SEEMS TO BE DISPLAYING SIGNS AND SYMPTOMS OF DEPRESSION. HAS NOT ASKED FOR ANYTHING, NOT INTERACTING WITH ANYONE.
--- NOTE | 2019-04-24 18:30 | NUR ---
Received patient in bed sleeping. RR even and unlabored, no distress noted. Will continue to monitor patient.
--- NOTE | 2019-04-24 19:51 | NUR ---
Patient up to eat his dinner. He is cooperative for an assessment. He reports still having thoughts of SI with plan to stab himself if he were to leave. Patient is in view of nurses station, all contraband removed from patient care area. Patient appears anxious, tapping feet during assessment and not making any eye cotnact, however he denies anxiety at this time. Patient denies depression, but reports symptoms of depression, tired, sleeping all day, sad.
[2019-04-24 21:28] VITALS: BP 111/64
[2019-04-24] MEDS ORDERED: OLAN10TA19 PO (22:07)
== END 2019-04-24 21:43 ==
LOC: ER 13:10
DX: F32.9 Major depressive disorder, single episode, unspecified (principal); J45.909 Unspecified asthma, uncomplicated; F41.9 Anxiety disorder, unspecified; F20.9 Schizophrenia, unspecified; F12.90 Cannabis use, unspecified, uncomplicated; F15.90 Other stimulant use, unspecified, uncomplicated; F17.200 Nicotine dependence, unspecified, uncomplicated; Z86.69 Personal history of other diseases of the nervous system and sense organs; Z59.0 Homelessness; Z88.0 Allergy status to penicillin; Z88.1 Allergy status to other antibiotic agents; Z91.011 Allergy to milk products; Z88.8 Allergy status to other drugs, medicaments and biological substances; Z79.899 Other long term (current) drug therapy
CPT/HCPCS: 36415; 80053; 80305; 80320; 81001; 84443; 85025; 87088; 99285

== ENCOUNTER 2019-04-24 21:08 | Inpatient (IN) | payer MEDICAID ==
[~2019-04-24] VITALS: Ht 175.3 cm; Wt 59.7 kg
[~2019-04-24 21:08] MED LIST changes: +ARIP30TA7 PO; +[UNRECOGNIZED DRUG - CODE] PO
[2019-04-24] MEDS ORDERED: acetaminophen 325mg tablet PO PRN ×2 (21:20)
[2019-04-24] MEDS ORDERED: loperamide 2mg capsule PO PRN (21:20)
[2019-04-24] MEDS ORDERED: mag hydrox/Alum hydrox/simeth 30ml oral suspension PO PRN (21:20)
[2019-04-24] MEDS ORDERED: magnesium hydroxide 30ml (MOM) UD suspension PO PRN (21:20)
[2019-04-24 21:40] VITALS: BP 124/92
[2019-04-24] MEDS ORDERED: OLAN10TA19 PO (22:07)
--- NOTE | 2019-04-24 22:55 | NUR ---
ADMISSION NOTE PT arrived on the unit from ER at 21:25 on 04/24/2019 accompanied by staff and security. PT was wanded, belongings inventoried, and 2 RN skin check completed. PT showered and changed into new scrubs. Pt is irritated and labile. When asked why he was here he yells, "because of suicidal thoughts!" Stamping Machine Operator asks why he is feeling suicidal and he responds, "well I am not right now but I will be if I don't get sleep like I didn't get sleep in the ER." Stamping Machine Operator tries to clarify and asks why he was suicidal before coming to the hospital and he sighs and waves his hands in the air in frustration and replies, " because I got on Aug 11, 2018 !!!! And I just can't deal with being alone and it makes me want to hurt myself and other people." Stamping Machine Operator asks if he still feels like hurting others and he replies, "yea honestly I do because I just can't stand being alone." Hx of schizophrenia, bipolar, ADHD, and mood disorder.
[2019-04-25] MEDS: pantoprazole 40mg Tablet.DR PO SCH (08:03)
[2019-04-25] MEDS: gabapentin 300mg capsule PO SCH ×3 (08:03→20:15)
[2019-04-25] MEDS: divalproex sodium 500mg tablet.DR PO SCH ×2 (08:03→20:15)
[2019-04-25] MEDS: ARIPIPRAZOLE 10 MG TABLET PO SCH (08:04)
[2019-04-25 08:05] LABS: CHOL/HDL RATIO 3.5 (0.00-4.99); CHOLESTEROL 140 MG/DL (0-200); HDL CHOLESTEROL 40 MG/DL (35-60); LDL CHOLESTEROL 90 MG/DL (50-100); TRIGLYCERIDES 57 MG/DL (20-135)
[2019-04-25 08:14] VITALS: BP 100/61
[2019-04-25] MEDS: lactose-reduced food (Ensure High Protein) 237ml bottle PO SCH ×2 (08:43→13:00)
--- NOTE | 2019-04-25 13:59 | NUR ---
Malnutrition consult, patient eating 100% while in ED overflow and now transferred to [facility]. Noted that patient was receiving ensure enlive TID and drinking 100%. Patient no longer has Ensure Enlive and has MD order of Ensure high protein instead, which patient is also drinking 100% of. No edema. Weight has some fluctuations within the past year, but overall stable with usual body weight. BMI is underweight. Recommend to continue ONS, could benefit from Ensure Enlive instead of Ensure High Protein for additional calories, d/w RN. No malnutrition at this time. Addendum: 04/25/19 at [address] Amended: Links added.
--- NOTE | 2019-04-25 17:23 | NUR ---
Nursing Progress Note: Legal hold: 5150 Client on involuntary status for DTS Report received from nurse with use of SBAR: DALTON Stephens Why are they here: Patient presented to the ER with suicidal ideation, reporting that he wants to stab himself in the heart. Assessment What has happened this shift: Patient is observed sleeping at change of shift. He is awoken prior to breakfast to take his medication. He states that he slept well the night before and that he feels ok this morning. He takes his medications without issue. Patient does not attend groups. He attends all meals in group room and then returns to his room to sleep. He wakes to to talk with therapist. Report received that patient talked about the loss of his parents and his ex-. He becomes tearful when he talks about the hardships he is having being homeless. Patient states that he feels like he has no worth and is suicidal. Patient is calm with this RN and does not report a plan of wanting to harm himself. He fills out needed paperwork and then falls back asleep. S/I, H/I: Passive S/I, no plan A/VH: denies Sleep: 6.5hrs NOC and rested during the day ADL's: Requires direction and encouragement from staff Group attendance: no Were meds taken: Yes Any med S/E: None Mental Status Exam Appearance: disheveled, long dirty fingernails Eye contact: direct Behavior: timid, friendly Speech: Soft tone Mood: tired, depressed Affect: flat Thought process: linear Thought Content: no delusional thought content present Cognition: A&O Insight: Poor Judgment: Poor Interventions PRN's used: none Therapeutic interventions: 1:1 therapeutic assessment, maintained safe therapeutic milieu, provided active listening with positive reinforcement, provided medication administration/education/monitoring as needed; Q15 safety checks. Restraints/seclusion/emergency medication: N/A Justification of Continued Inpatient Treatment: Continued therapeutic support and medication management needed to provide stabilization, prevent decompensation, improve coping mechanisms decreasing risk to patient and re-admittance.
[2019-04-25] MEDS: lactose-reduced food (Ensure Enlive) - 237ml bottle PO SCH (18:00)
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
[2019-04-26 08:00] VITALS: BP 130/72
[2019-04-26] MEDS: lactose-reduced food (Ensure Enlive) - 237ml bottle PO SCH ×4 (08:00→14:15)
[2019-04-26] MEDS: gabapentin 300mg capsule PO SCH ×3 (08:26→20:57)
[2019-04-26] MEDS: pantoprazole 40mg Tablet.DR PO SCH (08:26)
[2019-04-26] MEDS: ARIPIPRAZOLE 10 MG TABLET PO SCH (08:27)
[2019-04-26] MEDS: divalproex sodium 500mg tablet.DR PO SCH ×2 (08:27→20:56)
[2019-04-26] MEDS: LORazepam 1 MG tablet PO PRN (10:20)
[2019-04-26] MEDS: hydrOXYzine 25 MG tablet PO PRN (15:37)
--- NOTE | 2019-04-26 17:30 | NUR ---
NURSING PROGRESS NOTE: Legal hold: 5150 Exp 04/27 @ 2125 Client on involuntary status for DTS Report received from nurse with use of SBAR: DALTON Stephens Why are they here: Patient presented to the ER with suicidal ideation, reporting that he wants to stab himself in the heart. Assessment What has happened this shift: Pt. asleep at start of shift. Pt. took medications and ate all meals in community room. 1:1 done at bedside. Pt. is agitated, talking at length regarding his homelessness and people stealing his medications. Pt. using profanity and is difficult to redirect. Pt. given Ativan 1mg with good effect. Pt. became agitated when told he could not take snakes back to his room. Pt. began to swear and use racial slurs. Pt. difficult to redirect and given Atarax 50mg with good effect. Pt has seizure d/o, will monitor throughout shift. S/I, H/I: Passive S/I, no plan A/VH: AH-Pt. reports command hallucinations telling him to kill himself; denies VH Sleep: Pt. napped x2 ADL's: Independent. Pt. encouraged to shower. Group attendance: No Were meds taken: Medication compliant Any med S/E: None reported or observed. Mental Status Exam Appearance: Disheveled, dirty, wearing green unit scrubs Eye contact: Good Behavior: Isolative, agitated Speech: Mumbles. Yelling at times. Mood: Hopeless, anxious, irritable. Affect: Flat Thought process: Linear Thought Content: People stealing from him. Cognition: A&O Insight: Poor Judgment: Poor Interventions PRN's used: None Therapeutic interventions: 1:1 therapeutic assessment, maintained safe therapeutic milieu, provided active listening with positive reinforcement, reorient to reality, provided medication administration/education/monitoring as needed, monitoring for seizures; Q15 safety checks. Restraints/seclusion/emergency medication: N/A Justification of Continued Inpatient Treatment: Continued therapeutic support and medication management needed to provide stabilization, prevent decompensation, improve coping mechanisms decreasing risk to patient and re-admittance.
--- NOTE | 2019-04-27 02:06 | NUR ---
NURSING PROGRESS NOTE: Legal hold: 5250 Exp 05/11 @ 2125 Client on involuntary status for DTS Report received from nurse with use of SBAR: Dillon RN Why are they here: Patient presented to the ER with suicidal ideation, reporting that he wants to stab himself in the heart. Assessment What has happened this shift: Pt is observed sleeping in his room at shift change. Pt remained in bed all of shift, however did get up for HS snack. Pt states "I am tired because I had Ativan and another medicine today." Pt confirms he was agitated and knew he needed to be medicated. Pt states "I hear voices that tell me to kill myself." "You try having my voices, many voices, doubling, doubling on top of each other." Pt was medication compliant. Pt was converted to a 5250 and pt verbalized understanding of status and signed paperwork. Pt was medication compliant and cooperative with 1:1 assessment. Pt has seizure d/o, will monitor throughout shift. S/I, H/I: Passive S/I, no plan A/VH: AH- command voice that "tell me to kill myself" ; denies VH Sleep: See sleep assessment notation. ADL's: Requires direction and encouragement from staff Group attendance: music writer, no group Were meds taken: Medication compliant Any med S/E: None reported or observed. Mental Status Exam Appearance: Disheveled, wearing green unit scrubs. Pt encouraged to shower. Eye contact: Good Behavior: Cooperative, isolative Speech: Mumbles, dysarthric Mood: Hopeless, depressed, tired Affect: Flat Thought process: Linear Thought Content: Sleeping and eating Cognition: A&O Insight: Poor Judgment: Poor Interventions PRN's used: None Therapeutic interventions: 1:1 therapeutic assessment, maintained safe therapeutic milieu, provided active listening with positive reinforcement, reorient to reality, provided medication administration/education/monitoring as needed, monitoring for seizures; Q15 safety checks. Restraints/seclusion/emergency medication: N/A Justification of Continued Inpatient Treatment: Continued therapeutic support and medication management needed to provide stabilization, prevent decompensation, improve coping mechanisms decreasing risk to patient and re-admittance. Addendum: 04/27/19 at 0448 by Becki Rueda RN Pt starting Wellbutrin 75 mg DESTINEE jose AM.
[2019-04-27 07:44] VITALS: BP 107/71
[2019-04-27] MEDS: pantoprazole 40mg Tablet.DR PO SCH (08:02)
[2019-04-27] MEDS: buPROPion 75mg tablet PO SCH ×2 (08:02→12:35)
[2019-04-27] MEDS: gabapentin 300mg capsule PO SCH ×3 (08:03→20:50)
[2019-04-27] MEDS: divalproex sodium 500mg tablet.DR PO SCH ×2 (08:03→20:50)
[2019-04-27] MEDS: ARIPIPRAZOLE 10 MG TABLET PO SCH (08:04)
[2019-04-27] MEDS: lactose-reduced food (Ensure Enlive) - 237ml bottle PO SCH ×2 (13:57→18:05)
--- NOTE | 2019-04-27 17:30 | NUR ---
NURSING PROGRESS NOTE: Legal hold: 5250 Exp 05/11 @ 2125 Client on involuntary status for DTS Report received from nurse with use of SBAR: Becki RN Why are they here: Patient presented to the ER with suicidal ideation, reporting that he wants to stab himself in the heart. Assessment What has happened this shift: Pt. asleep at start of shift. Pt. took medications and ate all meals in community room. 1:1 done at bedside. Pt denies SI/HI, A/VH. Pt. reports that he has not heard any voices since last night. Pt. attended groups. Pt. showered, clipped nails and shaved. Pt. seen smiling and engaging with staff and patients appropriately. S/I, H/I: Denies A/VH: Denies Sleep: Pt. napped x1 on day shift. ADL's: Requires direction and encouragement from staff Group attendance: Pt. attends groups. Were meds taken: Yes Any med S/E: None reported or observed. Mental Status Exam Appearance: Showered, nails clipped, facial hair trimmed. Eye contact: Good Behavior: Cooperative, isolative Speech: Mumbles, dysarthric Mood: bright Affect: Congruent with mood Thought process: Linear Thought Content: Sleeping and eating Cognition: A&O x4 Insight: Poor Judgment: Poor Interventions PRN's used: None Therapeutic interventions: 1:1 therapeutic assessment, maintained safe therapeutic milieu, provided active listening with positive reinforcement, reorient to reality, provided medication administration/education/monitoring as needed, monitoring for seizures; Q15 safety checks. Restraints/seclusion/emergency medication: N/A Justification of Continued Inpatient Treatment: Continued therapeutic support and medication management needed to provide stabilization, prevent decompensation, improve coping mechanisms decreasing risk to patient and re-admittance.
[2019-04-27] MEDS: hydrOXYzine 25 MG tablet PO PRN (19:33)
--- NOTE | 2019-04-28 03:00 | NUR ---
NURSING PROGRESS NOTE: Legal hold: 5250 Exp 05/11 @ 2125 Client on involuntary status for DTS Report received from nurse with use of SBAR: DALTON Charles Why are they here: Patient presented to the ER with suicidal ideation, reporting that he wants to stab himself in the heart. Assessment What has happened this shift: Pt sleeping in his room at shift change no distres noted. Pt c/o diarrhea and stomach discomfort. Pt is up several times to restroom. Immodium administered. Pt states "I think I am coming down from meth." Pt is cooperative, but remains guarded. Pt's AH are less today. Pt was up for HS snack then returns to bed. Pt is sleeping comfortably at the time of this writing. S/I, H/I: Pt denies. A/VH: AH- "still there, but less" Sleep: See sleep assessment notation. ADL's: Requires direction and encouragement from staff Group attendance: manager shift, no group Were meds taken: Medication compliant Any med S/E: None reported or observed. Mental Status Exam Appearance: Disheveled, wearing green unit scrubs. Eye contact: Good Behavior: Cooperative, isolative Speech: Mumbles, dysarthric Mood: Depressed, fatigued Affect: Flat Thought process: Linear Thought Content: Pt asleep all shift Cognition: A&O Insight: Poor Judgment: Poor Interventions PRN's used: Imodium Therapeutic interventions: 1:1 therapeutic assessment, maintained safe therapeutic milieu, provided active listening with positive reinforcement, reorient to reality, provided medication administration/education/monitoring as needed, monitoring for seizures; Q15 safety checks. Restraints/seclusion/emergency medication: N/A Justification of Continued Inpatient Treatment: Continued therapeutic support and medication management needed to provide stabilization, prevent decompensation, improve coping mechanisms decreasing risk to patient and re-admittance.
[2019-04-28 08:00] VITALS: BP 115/75
[2019-04-28] MEDS: ARIPIPRAZOLE 10 MG TABLET PO SCH (08:54)
[2019-04-28] MEDS: buPROPion 75mg tablet PO SCH ×2 (08:54→12:35)
[2019-04-28] MEDS: divalproex sodium 500mg tablet.DR PO SCH ×2 (08:55→20:00)
[2019-04-28] MEDS: lactose-reduced food (Ensure Enlive) - 237ml bottle PO SCH ×3 (08:55→18:10)
[2019-04-28] MEDS: gabapentin 300mg capsule PO SCH ×3 (08:55→21:11)
[2019-04-28] MEDS: pantoprazole 40mg Tablet.DR PO SCH (08:55)
[2019-04-28] MEDS: LORazepam 1 MG tablet PO PRN (15:13)
--- NOTE | 2019-04-28 17:15 | NUR ---
NURSING PROGRESS NOTE: Legal hold: 5250 Exp 05/11 @ 2125 Client on involuntary status for DTS Report received from nurse with use of SBAR: Destiny Salvador RN Why are they here: Patient presented to the ER with suicidal ideation, reporting that he wants to stab himself in the heart. Assessment What has happened this shift: Pt. asleep at start of shift. Pt. took medications and ate all meals in the community room. 1:1 done at bedside. Pt. reports he is still "kicking" his meth binge from from 3 days ago. Pt. states, "I need to stay near the toilet, I've got sweats, I've got cramps". Pt. did not go to group. Pt. states, "I'm ready to go, I've got housing, I've got follow-up care." Pt. seen in day room and heard interacting with other patients. Pt. needs re-direction at times as he makes inappropriate comments to female patients. Pt. requested milk of magnesia, when RN questioned pt. because of his reported diarrhea yesterday pt. became angry, yelling that no one is considering his needs. Pt. given milk of magnesia and Ativan. S/I, H/I: Pt denies. A/VH: Denies Sleep: Pt. napped x1 ADL's: Requires direction and encouragement from staff. Pt. showered today. Group attendance: cage shift manager, no group Were meds taken: Medication compliant Any med S/E: None reported or observed. Mental Status Exam Appearance: Disheveled, wearing green unit scrubs. Eye contact: Good Behavior: Cooperative, isolative Speech: Mumbles, hyperverbal at times Mood: bright but easily agitated Affect: congruent with mood Thought process: Linear Thought Content: Pt. focused on food, meds. Cognition: A&O x4 Insight: Poor Judgment: Poor Interventions PRN's used: Imodium Therapeutic interventions: 1:1 therapeutic assessment, maintained safe therapeutic milieu, provided active listening with positive reinforcement, reorient to reality, provided medication administration/education/monitoring as needed, monitoring for seizures; Q15 safety checks. Restraints/seclusion/emergency medication: N/A Justification of Continued Inpatient Treatment: Continued therapeutic support and medication management needed to provide stabilization, prevent decompensation, improve coping mechanisms decreasing risk to patient and re-admittance.
--- NOTE | 2019-04-29 | NUR ---
NURSING PROGRESS NOTE: Legal hold: 5250 Exp 05/11 @ 2125 Client on involuntary status for DTS Report received from nurse with use of SBAR: ONEYDA Charles Why are they here: Patient presented to the ER with suicidal ideation, reporting that he wants to stab himself in the heart. Assessment What has happened this shift: Pt. asleep at start of shift. PtPt. took medications and ate all meals in the community room. Pt socialized with other pts in group room. 1:1 done at bedside. Pt. angry at first he refused HS meds. When asked why he said he was "sick of the way they treat me around here." Pt had a vague and somewhat tangential report of his complaints but most of it focused on his 5250 hold and that he did not need to be on a hold. After pt vented he decided to take his meds and then went to sleep. S/I, H/I: Pt denies. A/VH: Denies Sleep: Asleep at this time ADL's: Requires direction and encouragement from staff. Pt. showered today. Group attendance: warehouse supervisor 3rd shift, no group Were meds taken: Medication compliant Any med S/E: None reported or observed. Mental Status Exam Appearance: Disheveled, wearing green unit scrubs. Eye contact: Good Behavior: Socialized in group room Speech: Mumbles, hyperverbal at times Mood: bright but easily agitated Affect: congruent with mood Thought process: Linear Thought Content: Pt. focused on hold Cognition: A&O x4 Insight: Poor Judgment: Poor Interventions PRN's used: none Therapeutic interventions: 1:1 therapeutic assessment, maintained safe therapeutic milieu, provided active listening with positive reinforcement, reorient to reality, provided medication administration/education/monitoring as needed, monitoring for seizures; Q15 safety checks. Restraints/seclusion/emergency medication: N/A Justification of Continued Inpatient Treatment: Continued therapeutic support and medication management needed to provide stabilization, prevent decompensation, improve coping mechanisms decreasing risk to patient and re-admittance.
[2019-04-29 07:54] VITALS: BP 116/65
[2019-04-29] MEDS: lactose-reduced food (Ensure Enlive) - 237ml bottle PO SCH ×3 (08:00→18:00)
[2019-04-29] MEDS: pantoprazole 40mg Tablet.DR PO SCH (09:29)
[2019-04-29] MEDS: divalproex sodium 500mg tablet.DR PO SCH (09:29)
[2019-04-29] MEDS: gabapentin 300mg capsule PO SCH ×3 (09:30→20:22)
[2019-04-29] MEDS: buPROPion 75mg tablet PO SCH ×2 (09:30→13:09)
[2019-04-29] MEDS: ARIPIPRAZOLE 10 MG TABLET PO SCH (09:31)
--- NOTE | 2019-04-29 09:40 | NUR ---
Initial: Pt PO 100% meals and ensure enlive TIDWM meeting needs. LBM 04/28. No nutrition concerns at this time. Rec: 1. continue regular diet, ensure enlive TIDWM per MD 2. routine bowel care 3. wt per rx Addendum: 04/29/19 at [address] Amended: Links added.
[2019-04-29] MEDS ORDERED: oxcarbazepine 150mg tablet PO ONE (15:00)
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
[2019-04-29 19:39] VITALS: BP 113/75
[2019-04-29] MEDS: oxcarbazepine 150mg tablet PO SCH (20:21)
--- NOTE | 2019-04-29 22:37 | NUR ---
NURSING PROGRESS NOTE: Legal hold: 5250 Client on involuntary status for DTS Report received from nurse with use of SBAR: ONEYDA Charles Why are they here: Patient presented to the ER with suicidal ideation, reporting that he wants to stab himself in the heart with his pocket knife. Assessment What has happened this shift: Pt. Awake up on unit at start of shit. Asked to talk immediately. Pt continued his complaint from yesterday that his 5250 hold was unfair. Pt said he plans to talk to Dr. Sanders about it tomorrow. After that he was pleasant and cooperative the rest of the shift. He is social on the unit and has made friends with other pts. Pt has seizure d/o, will monitor throughout shift. S/I, H/I: Passive S/I, no plan A/VH: AH-Pt. reports command hallucinations telling him to kill himself; denies VH Sleep: Asleep at this time ADL's: Independent. Pt. encouraged to shower. Group attendance: No Were meds taken: Medication compliant Any med S/E: None reported or observed. Mental Status Exam Appearance: Disheveled, dirty, wearing green unit scrubs Eye contact: Good Behavior: pleasant and cooperative Speech: Mumbles. Mood: pleasant Affect: Flat Thought process: Linear. Confabulates. Thought Content: People stealing from him. Cognition: A&O Insight: Poor Judgment: Poor Interventions PRN's used: None Therapeutic interventions: 1:1 therapeutic assessment, maintained safe therapeutic milieu, provided active listening with positive reinforcement, reorient to reality, provided medication administration/education/monitoring as needed, monitoring for seizures; Q15 safety checks. Restraints/seclusion/emergency medication: N/A Justification of Continued Inpatient Treatment: Continued therapeutic support and medication management needed to provide stabilization, prevent decompensation, improve coping mechanisms decreasing risk to patient and re-admittance.
[2019-04-30] MEDS: ARIPIPRAZOLE 10 MG TABLET PO SCH (07:36)
[2019-04-30] MEDS: oxcarbazepine 150mg tablet PO SCH ×2 (07:36→20:07)
[2019-04-30] MEDS: pantoprazole 40mg Tablet.DR PO SCH (07:36)
[2019-04-30] MEDS: buPROPion 75mg tablet PO SCH ×2 (07:37→13:35)
[2019-04-30 08:00] VITALS: BP 112/65
[2019-04-30] MEDS: lactose-reduced food (Ensure Enlive) - 237ml bottle PO SCH ×3 (08:00→18:00)
[2019-04-30] MEDS: LORazepam 1 MG tablet PO PRN (16:40)
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
[2019-04-30] MEDS: hydrOXYzine 25 MG tablet PO PRN (19:19)
[2019-04-30] MEDS ORDERED: LORazepam 1 MG tablet PO ONE (19:20)
[2019-04-30] MEDS ORDERED: olanzapine 10mg tablet PO ONE (19:23)
[2019-04-30] MEDS: gabapentin 300mg capsule PO SCH (20:08)
--- NOTE | 2019-04-30 23:27 | NUR ---
NURSING PROGRESS NOTE: Legal hold: 5250 Client on involuntary status for DTS Report received from nurse with use of SBAR: Elva RN Why are they here: Patient presented to the ER with suicidal ideation, reporting that he wants to stab himself in the heart with his pocket knife. Assessment What has happened this shift: Pt. had episode of agitation at start of shift. His behavior escalated. Called multiple staff members obscenities such as "blonde bitch." and "fucking rent a copyright clerk". Staff was able to deescalate pt. Pt took one time order for po Ativan and Zyprexa and his regular PM without objection. Pt requested to go into observation room and be by himself. He was able to regain control. He verbalized regret for his behavior. He came out and spent time in the group room applying facial cream with a female pt. They were laughing and talking. \\ He went to bed and went to sleep without further incident. S/I, H/I: Passive S/I, no plan A/VH: AH-Pt. reports command hallucinations telling him to kill himself; denies VH Sleep: Did not nap today ADL's: Independent. Pt. encouraged to shower. Group attendance: No Were meds taken: Medication compliant Any med S/E: None reported or observed. Mental Status Exam Appearance: Disheveled, dirty, wearing green unit scrubs Eye contact: Good Behavior: Isolative, agitated Speech: Mumbles. Mood: Hopeless, anxious, irritable. Affect: Flat Thought process: Linear. Confabulates. Thought Content: People stealing from him. Cognition: A&O Insight: Poor Judgment: Poor Interventions PRN's used: Ativan 1 mg. PO Therapeutic interventions: 1:1 therapeutic assessment, maintained safe therapeutic milieu, provided active listening with positive reinforcement, reorient to reality, provided medication administration/education/monitoring as needed, monitoring for seizures; Q15 safety checks. Restraints/seclusion/emergency medication: PO meds and pt voluntary seclusion in observation room for escalating behavior. Interventions effective. Justification of Continued Inpatient Treatment: Continued therapeutic support and medication management needed to provide stabilization, prevent decompensation, improve coping mechanisms decreasing risk to patient and re-admittance.
[2019-05-01 08:00] VITALS: BP 123/71
[2019-05-01] MEDS: pantoprazole 40mg Tablet.DR PO SCH (08:25)
[2019-05-01] MEDS: ARIPIPRAZOLE 10 MG TABLET PO SCH (08:25)
[2019-05-01] MEDS: oxcarbazepine 150mg tablet PO SCH ×2 (08:25→20:01)
[2019-05-01] MEDS: buPROPion 75mg tablet PO SCH ×2 (08:26→13:03)
[2019-05-01] MEDS: lactose-reduced food (Ensure Enlive) - 237ml bottle PO SCH ×3 (08:29→17:41)
[2019-05-01] MEDS ORDERED: LORazepam 1 MG tablet PO ONE (09:15)
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
[2019-05-01] MEDS: gabapentin 300mg capsule PO SCH (20:01)
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
[2019-05-02] MEDS: pantoprazole 40mg Tablet.DR PO SCH (08:01)
[2019-05-02] MEDS: ARIPIPRAZOLE 10 MG TABLET PO SCH (08:01)
[2019-05-02] MEDS: oxcarbazepine 150mg tablet PO SCH ×2 (08:01→20:10)
[2019-05-02] MEDS: buPROPion 75mg tablet PO SCH ×2 (08:01→13:30)
[2019-05-02] MEDS: lactose-reduced food (Ensure Enlive) - 237ml bottle PO SCH ×3 (08:02→17:51)
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
[2019-05-02] MEDS: hydrOXYzine 25 MG tablet PO PRN ×2 (16:12→16:28)
--- NOTE | 2019-05-02 16:44 | NUR ---
Pt became frustrated that he was not being discharged today and had a loud verbal outburst in the hallway. Pt said that people kept telling him that Dr Sanders would return today at 4:00 and speak with him, pt had told this RN earlier that he had already met with Dr Sanders today. Pt yelled that we were keeping him against his will and he was going to call the payroll benefits administrator and let him know that. Mild reality orientation attempted, mental health hold education provided. Reassured pt that he was still here because staff cares about him and was trying to come up with a safe discharge plan for him, possibly something better than the streets. Reminded pt that he had been to our ER 19+ times this year indicating that the streets were not working for him. Reminded him that was trying to collaborate with [facility] on possible care home placement for him. Pt stated that was a lie because he had called and spoken with 2 people from [facility], Carey and another worker with an unusual name this RN doesn't recall. Pt stated that he was told by [facility] that they were unable to talk to us because he had not signed a release of information for them and that would be a HIPPA violation. Pt went to his room to lie down on the floor by the window with continued verbal outbursts and loud crying. Pt was offered prn Atarax 50 mg but refused, "no, get the fuck out of my room!" Pt was given time to calm down in his room with staff outside the door ensuring that pt was safe. Pt calmed down some and took the prn Atarax [address] RN[address] Sanders returned to the unit, this RN spoke with him about pt's outburst/agitation and wish to be discharged today. Dr Sanders stated that as far as he knew, pt did not have follow up appointments arranged so he will more than likely be discharged tomorrow. Dr Sanders relayed that the pt had called his clinic office today and asked to speak with him. Checked on pt, he was lying calmly on top of his bed in his room. Informed pt that this RN had spoken with Dr Sanders and that the doctor stated that he would probably discharge him tomorrow once his follow up appointments were set up. Pt stated that he had called [facility] and they had said he had an appointment on the . Pt asked, "So you guarantee that Dr Sanders will discharge me tomorrow?" This RN replied that I wasn't going to promise him anything as that if for some reason it did not happen, then I would be breaking my word to him. Re-emphasized that the psychiatrist had stated that if follow up appointments were arranged then he would more than likely discharge him tomorrow. Pt currently in the community room calmly playing a card game with a group of other patients.
--- NOTE | 2019-05-02 18:15 | NUR ---
[facility] CONTACT/MESSAGE: SW made TC to Yuridia Gomez at extension [phone], and left message w/ Yuridia Gomez, requesting return contact by pt's assigned [facility] case supervisor. Janice Edmondson, Data Processing Control Clerk HARDNESS TESTER [id number] Supervised by Jorden Walter, [id number]
[2019-05-02 20:04] VITALS: BP 118/80
[2019-05-02] MEDS: gabapentin 300mg capsule PO SCH (20:10)
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
[2019-05-03] MEDS: ARIPIPRAZOLE 10 MG TABLET PO SCH (07:35)
[2019-05-03] MEDS: buPROPion 75mg tablet PO SCH ×2 (07:35→13:05)
[2019-05-03] MEDS: pantoprazole 40mg Tablet.DR PO SCH (07:36)
[2019-05-03] MEDS: oxcarbazepine 150mg tablet PO SCH (07:36)
[2019-05-03 08:03] VITALS: BP 134/79
[2019-05-03] MEDS: lactose-reduced food (Ensure Enlive) - 237ml bottle PO SCH ×2 (08:09→13:06)
[2019-05-03] MEDS ORDERED: BUPR75TA12 PO (15:24)
[2019-05-03] MEDS ORDERED: OXCA150T14 PO (15:24)
[2019-05-03] MEDS ORDERED: PANT40TA4 PO (15:24)
[2019-05-03] MEDS ORDERED: ARIP30TA7 PO (15:24)
--- NOTE | 2019-05-03 16:00 | NUR ---
Pt. discharged to [facility] via cab. Pt's scripts called in and pt. verbalizes understanding of medication regimen and spanish moss picker location. Pt.'s mood increased during stay. Pt. shows no signs of emotional or psychological distress. Pt. denies SI/HI, A/V H. Pt. verbalizes understanding of f/u appointments. Pt. discharged with all valuables and reclined nicotine replacement.
== END 2019-05-03 15:57 | disposition short-term general hospital (02) | DRG 753 ==
LOC: ADULT MH 21:08
PROVIDERS: ADMIT Psychiatry & Neurology Psychiatry; ATTEND Psychiatry & Neurology Psychiatry
DX: F39 Unspecified mood [affective] disorder (principal); R45.851 Suicidal ideations; F15.20 Other stimulant dependence, uncomplicated; F25.9 Schizoaffective disorder, unspecified; F70 Mild intellectual disabilities; K21.9 Gastro-esophageal reflux disease without esophagitis; F17.210 Nicotine dependence, cigarettes, uncomplicated; F41.9 Anxiety disorder, unspecified; Z59.0 Homelessness; Z71.6 Tobacco abuse counseling; Z71.51 Drug abuse counseling and surveillance of drug abuser; Z91.14 Patient's other noncompliance with medication regimen
CPT/HCPCS: 36415; 80061; 83036; 87081; Z7610

== ENCOUNTER 2019-05-11 17:31 | Emergency (ER) | payer MEDICAID ==
[~2019-05-11 17:31] MED LIST changes: +BUPR75TA12 PO; -DIVA500T2 PO; -GABA-532 PO; -OLAN20TA3 PO; -OMEP20TA5 PO; +OXCA150T14 PO; +PANT40TA4 PO; -[UNRECOGNIZED DRUG - CODE] PO
== END 2019-05-11 19:09 | disposition left against medical advice (07) ==
LOC: ER 17:32
DX: R45.851 Suicidal ideations (principal); Z53.21 Procedure and treatment not carried out due to patient leaving prior to being seen by health care provider

== ENCOUNTER 2019-05-13 16:51 | Emergency (ER) | payer MEDICAID ==
[~2019-05-13] VITALS: Ht 175.3 cm; Wt 58.1 kg
--- NOTE | 2019-05-13 17:23 | NUR ---
Patient presents as very manipulative, and seems to have scripted answers. Has been here multiple times for the same complaints but every time he goes back to same habits, per his own admission. Does present as very depressed and states he is losing everything including all of his friends. Has psychiatrist Dr Sanders, who he has recently seen and got prescriptions.
[2019-05-13] MEDS ORDERED: OLANZapine 5mg rapidly disint. tablet PO ONE (17:25)
[2019-05-13] MEDS ORDERED: quetiapine 100mg tablet PO ONE (17:30)
[2019-05-13 19:43] VITALS: BP 153/69
[2019-05-13 20:39] LABS: CLARITY,URINE SLIGHTLY CLOUDY (Clear); COLOR,URINE YELLOW (Yellow); GLUCOSE, URINE NEGATIVE (Neg); KETONES,URINE NEGATIVE (Neg); LEUKOCYTE ESTERASE ,URINE NEGATIVE (Neg); NITRITES, URINE NEGATIVE (Neg); OCCULT BLOOD,URINE NEGATIVE (Neg); PROTEIN,URINE NEGATIVE (Neg); UROBILINOGEN,URINE 0.2 E.U/dL (0.2-1.0)
[2019-05-13 20:41] LABS: UA COLLECTION TYPE CLN CATCH MIDSTREAM
[2019-05-13 20:53] LABS: BACTERIA,URINE NONE SEEN /HPF (Neg); CAL OXALATE CRYSTALS 3+ /HPF (NEGATIVE); MUCUS STRANDS MANY /LPF (Neg); RBC,URINE NONE SEEN /HPF (0-2); SQUAMOUS EPITHELIAL CELL,UR NONE SEEN /LPF (FEW)
[2019-05-13 20:58] LABS: URINE AMPHETAMINE SCREEN POSITIVE (Neg); URINE BARBITUATE SCREEN NEGATIVE (Neg); URINE BENZODIAZEPINES SCREEN NEGATIVE (Neg); URINE CANNABINOID SCREEN POSITIVE (Neg); URINE COCAINE SCREEN NEGATIVE (Neg); URINE METHADONE SCREEN NEGATIVE (Neg); URINE OPIATE SCREEN NEGATIVE (Neg); URINE PHENCYCLIDINE SCREEN NEGATIVE (Neg)
== END 2019-05-13 19:47 | disposition home or self-care (01) ==
LOC: ER 16:52
DX: R45.851 Suicidal ideations (principal); F15.10 Other stimulant abuse, uncomplicated; J45.909 Unspecified asthma, uncomplicated; F41.9 Anxiety disorder, unspecified; F31.9 Bipolar disorder, unspecified; F20.9 Schizophrenia, unspecified; F12.90 Cannabis use, unspecified, uncomplicated; Z59.0 Homelessness; Z88.0 Allergy status to penicillin; Z88.1 Allergy status to other antibiotic agents; Z88.8 Allergy status to other drugs, medicaments and biological substances; Z79.899 Other long term (current) drug therapy
CPT/HCPCS: 80305; 81001; 99283; 99284

== ENCOUNTER 2019-06-07 14:01 | Emergency (ER) | payer MEDICAID ==
[~2019-06-07] VITALS: Ht 175.3 cm; Wt 57.0 kg
[~2019-06-07 14:01] MED LIST changes: +LIDOcaine 1% W/epiNEPHrine 1:100,000 20ml vial ONE
[2019-06-07 16:43] LABS: ALANINE AMINOTRANSFERASE 23 U/L (12-78); ALBUMIN 4.1 G/DL (3.4-5.0); ALBUMIN/GLOBULIN RATIO 1.1 (1.1-1.5); ALKALINE PHOSPHATASE 55 IU/L (46-116); ANION GAP 8 (8-16); ASPARTATE AMINO TRANSFERASE 19 U/L (10-37); BILIRUBIN,TOTAL 0.3 MG/DL (0.1-1.0); BLOOD UREA NITROGEN 16 MG/DL (7-18); BUN/CREATININE RATIO 18.4 (5.4-32.0); CALCIUM 9.9 MG/DL (8.5-10.1); CHLORIDE 105 MMOL/L (99-107); CREATININE 0.87 MG/DL (0.60-1.10); ETHANOL < 0.010 GM/DL (0.0-0.010); GLUCOSE 103 MG/DL (70-104); POTASSIUM 4.1 MMOL/L (3.5-5.1); SODIUM 146 MMOL/L (135-145); TOTAL CARBON DIOXIDE 32.7 MMOL/L (24-32); eGFR > 90 ML/MIN
[2019-06-07 16:48] LABS: URINE AMPHETAMINE SCREEN NEGATIVE (Neg); URINE BARBITUATE SCREEN NEGATIVE (Neg); URINE BENZODIAZEPINES SCREEN NEGATIVE (Neg); URINE CANNABINOID SCREEN NEGATIVE (Neg); URINE COCAINE SCREEN NEGATIVE (Neg); URINE METHADONE SCREEN NEGATIVE (Neg); URINE OPIATE SCREEN NEGATIVE (Neg); URINE PHENCYCLIDINE SCREEN NEGATIVE (Neg)
[2019-06-07 16:54] LABS: BASOPHILS # (AUTO) 0.1 X10'3 (0-0.2); BASOPHILS % (AUTO) 0.8 % (0-1); EOSINOPHILS # (AUTO) 0.1 X10'3 (0-0.9); EOSINOPHILS % (AUTO) 1.4 % (0-6); HEMATOCRIT 43.1 % (42.0-52.0); HEMOGLOBIN 14.7 g/dl (14.0-17.9); LYMPHOCYTES # (AUTO) 3.1 X10'3 (1.1-4.8); LYMPHOCYTES % (AUTO) 33.6 % (21-51); MEAN CORPUSCULAR HEMOGLOBIN 29.7 PG (27.0-31.0); MEAN CORPUSCULAR VOLUME 87.4 FL (78-98); MEAN PLATELET VOLUME 8.5 FL (7.4-10.4); MONOCYTES # (AUTO) 0.6 X10'3 (0-0.9); MONOCYTES % (AUTO) 6.1 % (2-12); NEUTROPHILS # (AUTO) 5.3 X10'3 (1.8-7.7); NEUTROPHILS % (AUTO) 58.1 % (42-75); PLATELET COUNT 353 X10'3 (140-440); RED BLOOD COUNT 4.94 X10'6 (4.70-6.10); RED CELL DISTRIBUTION WIDTH 13.5 % (11.5-14.5); WHITE BLOOD COUNT 9.1 X10'3 (4.5-11.0)
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
[2019-06-07] MEDS ORDERED: ARIP30TA7 PO (18:02)
[2019-06-07] MEDS ORDERED: BUPR75TA8 PO (18:02)
[2019-06-07] MEDS ORDERED: OXCA150T14 PO (18:02)
[2019-06-07] MEDS ORDERED: PANT40TA4 PO (18:02)
--- NOTE | 2019-06-07 18:50 | NUR ---
Assumed care of pt., pt. laying in bed and [facility] at bedside. Pt. appears calm and cooperative.
--- NOTE | 2019-06-07 19:51 | NUR ---
Per [facility] evaluation, pt. is not suicidal and is cleared for discharge at this time. Pt. requests to take HS medications before departure.
[2019-06-07] MEDS ORDERED: oxcarbazepine 150mg tablet PO SCH (20:00)
[2019-06-07] MEDS ORDERED: buPROPion 75mg tablet PO SCH (20:00)
--- NOTE | 2019-06-07 20:11 | NUR ---
Pt. compliant with all HS medications, he reports he uses the [facility], and he will be able to pick out hand his medications tomorrow. Will send medication list with patient. Pt. denies S/I at this time and reports he plans to go stay with his friend Dunia martínez and call [facility] in [place] to see if they have placement for him in the morning. He continues to be calm and cooperative, rr even and unlabored.
[2019-06-07 20:33] VITALS: BP 127/89
--- NOTE | 2019-06-07 20:37 | NUR ---
Pt. refused medication list, reports he knows his medications and will pick them up tomorrow. Pt. ambulated out accomopanied by security. Sack lunch provided.
[2019-06-07] MEDS ORDERED: ARIPIPRAZOLE 10 MG TABLET PO SCH (21:00)
[2019-06-08] MEDS ORDERED: pantoprazole 40mg Tablet.DR PO SCH (08:00)
== END 2019-06-07 20:37 | disposition home or self-care (01) ==
LOC: ER 14:03
DX: S01.81XA Laceration without foreign body of other part of head, initial encounter (principal); R45.851 Suicidal ideations; J45.909 Unspecified asthma, uncomplicated; F41.9 Anxiety disorder, unspecified; F31.9 Bipolar disorder, unspecified; F20.9 Schizophrenia, unspecified; F17.200 Nicotine dependence, unspecified, uncomplicated; F12.90 Cannabis use, unspecified, uncomplicated; F15.90 Other stimulant use, unspecified, uncomplicated; Z59.0 Homelessness; Z88.0 Allergy status to penicillin; Z88.1 Allergy status to other antibiotic agents; Z88.8 Allergy status to other drugs, medicaments and biological substances; Z79.899 Other long term (current) drug therapy; W01.198A Fall on same level from slipping, tripping and stumbling with subsequent striking against other object, initial encounter; Y93.89 Activity, other specified; Y92.89 Other specified places as the place of occurrence of the external cause; Y99.8 Other external cause status
CPT/HCPCS: 12001; 36415; 80053; 80305; 80320; 85025; 99284

== ENCOUNTER 2019-06-24 22:24 | Emergency (ER) | payer MEDICAID ==
[~2019-06-24] VITALS: Ht 175.3 cm; Wt 56.0 kg
[~2019-06-24 22:24] MED LIST changes: -BUPR75TA12 PO; +BUPR75TA8 PO; -LIDOcaine 1% W/epiNEPHrine 1:100,000 20ml vial ONE
[2019-06-24 22:28] VITALS: BP 160/72
[2019-06-24] MEDS ORDERED: LIDOcaine 1% w/EPI 1:200,000 injection 10mL vial IM ONE (23:00)
[2019-06-24] MEDS ORDERED: LORazepam 1 MG tablet PO ONE (23:30)
[2019-06-24] MEDS ORDERED: IBUP-1984 PO (23:48)
== END 2019-06-24 23:55 | disposition home or self-care (01) ==
LOC: ER 22:25
DX: S01.81XA Laceration without foreign body of other part of head, initial encounter (principal); J45.909 Unspecified asthma, uncomplicated; F12.90 Cannabis use, unspecified, uncomplicated; F15.90 Other stimulant use, unspecified, uncomplicated; Z59.0 Homelessness; Z88.0 Allergy status to penicillin; Z88.1 Allergy status to other antibiotic agents; Z91.011 Allergy to milk products; Z88.3 Allergy status to other anti-infective agents; Z79.899 Other long term (current) drug therapy; Y04.0XXA Assault by unarmed brawl or fight, initial encounter; Y93.89 Activity, other specified; Y92.89 Other specified places as the place of occurrence of the external cause; Y99.9 Unspecified external cause status
CPT/HCPCS: 12011; 70450; 70486; 99284

== ENCOUNTER 2019-11-26 23:48 | Emergency (ER) | payer MEDICAID ==
[~2019-11-26] VITALS: Ht 175.3 cm; Wt 60.0 kg
[~2019-11-26 23:48] MED LIST changes: -ARIP30TA7 PO; -BUPR75TA8 PO; +DIVA500T2 PO; -OXCA150T14 PO; +OXCA300T16 PO; +RISP0.5T3 PO; +TAM75C PO
== END 2019-11-27 00:29 | disposition home or self-care (01) ==
LOC: ER 23:49
DX: F32.9 Major depressive disorder, single episode, unspecified (principal); F41.9 Anxiety disorder, unspecified; F20.9 Schizophrenia, unspecified; F12.90 Cannabis use, unspecified, uncomplicated; F15.90 Other stimulant use, unspecified, uncomplicated; Z86.69 Personal history of other diseases of the nervous system and sense organs; Z59.0 Homelessness; Z88.1 Allergy status to other antibiotic agents; Z88.8 Allergy status to other drugs, medicaments and biological substances; Z79.899 Other long term (current) drug therapy
CPT/HCPCS: 99281; 99285

== ENCOUNTER 2019-12-21 13:24 | Emergency (ER) | payer MEDICAID ==
[~2019-12-21] VITALS: Ht 165.1 cm; Wt 60.0 kg
[2019-12-21 13:31] VITALS: BP 117/73
[2019-12-21] MEDS ORDERED: ALBU8HFA PO (14:12)
== END 2019-12-21 14:57 | disposition home or self-care (01) ==
LOC: ER 13:25
DX: J06.9 Acute upper respiratory infection, unspecified (principal); J45.909 Unspecified asthma, uncomplicated; F41.9 Anxiety disorder, unspecified; F31.9 Bipolar disorder, unspecified; F20.9 Schizophrenia, unspecified; F12.90 Cannabis use, unspecified, uncomplicated; F15.90 Other stimulant use, unspecified, uncomplicated; Z59.0 Homelessness; Z88.0 Allergy status to penicillin; Z88.1 Allergy status to other antibiotic agents; Z91.011 Allergy to milk products; Z88.8 Allergy status to other drugs, medicaments and biological substances; Z79.899 Other long term (current) drug therapy
CPT/HCPCS: 71045; 99283

== ENCOUNTER 2020-01-14 22:57 | Emergency (ER) | payer MEDICAID ==
[~2020-01-14] VITALS: Ht 175.3 cm; Wt 51.8 kg
[~2020-01-14 22:57] MED LIST changes: +ALBU8HFA PO
[2020-01-14] MEDS ORDERED: LORA-269 PO (23:39)
--- NOTE | 2020-01-14 23:42 | NUR ---
PT HERE FOR MED CLEARANCE. PT STATES HE WOULD LIKE TO GO TO [place] FOR FRUG REHAB . PT STATES HE VALUES HIS LIFE AND NEEDS TO START TAKING BETTER CARE OF HIMESLF
[2020-01-14 23:59] VITALS: BP 132/75
== END 2020-01-14 23:50 | disposition home or self-care (01) ==
LOC: ER 22:57
DX: F15.10 Other stimulant abuse, uncomplicated (principal); F25.0 Schizoaffective disorder, bipolar type; J45.909 Unspecified asthma, uncomplicated; F41.9 Anxiety disorder, unspecified; F31.9 Bipolar disorder, unspecified; F12.90 Cannabis use, unspecified, uncomplicated; Z86.69 Personal history of other diseases of the nervous system and sense organs; Z59.0 Homelessness; Z88.1 Allergy status to other antibiotic agents; Z88.0 Allergy status to penicillin; Z88.8 Allergy status to other drugs, medicaments and biological substances; Z79.899 Other long term (current) drug therapy
CPT/HCPCS: 99283

== ENCOUNTER 2020-01-17 22:42 | Emergency (ER) | payer MEDICAID ==
[~2020-01-17] VITALS: Ht 175.3 cm; Wt 63.6 kg
[~2020-01-17 22:42] MED LIST changes: +LORA-269 PO
--- NOTE | 2020-01-17 23:10 | NUR ---
CALLED [facility] AND SPOKE WITH SANDRA,
[2020-01-17 23:54] LABS: BASOPHILS # (AUTO) 0.1 X10'3 (0-0.2); BASOPHILS % (AUTO) 1.1 % (0-1); EOSINOPHILS # (AUTO) 0.2 X10'3 (0-0.9); HEMATOCRIT 40.5 % (42.0-52.0); HEMOGLOBIN 13.6 g/dl (14.0-17.9); LYMPHOCYTES % (AUTO) 37.6 % (21-51); MEAN CORPUSCULAR HGB CONC 33.6 g/dL (33.0-36.5); MEAN CORPUSCULAR VOLUME 86.1 FL (78-98); MEAN PLATELET VOLUME 8.6 FL (7.4-10.4); MONOCYTES # (AUTO) 0.9 X10'3 (0-0.9); MONOCYTES % (AUTO) 11.1 % (2-12); NEUTROPHILS # (AUTO) 3.8 X10'3 (1.8-7.7); NEUTROPHILS % (AUTO) 47.2 % (42-75); PLATELET COUNT 282 X10'3 (140-440); RED BLOOD COUNT 4.71 X10'6 (4.70-6.10); RED CELL DISTRIBUTION WIDTH 15.3 % (11.5-14.5)
[2020-01-18 00:06] LABS: ALANINE AMINOTRANSFERASE 23 U/L (12-78); ALBUMIN 3.6 G/DL (3.4-5.0); ALBUMIN/GLOBULIN RATIO 1.1 (1.1-1.5); ALKALINE PHOSPHATASE 52 IU/L (46-116); ANION GAP 6 (8-16); ASPARTATE AMINO TRANSFERASE 19 U/L (10-37); BILIRUBIN,TOTAL 0.4 MG/DL (0.1-1.0); BLOOD UREA NITROGEN 15 MG/DL (7-18); BUN/CREATININE RATIO 14.4 (5.4-32.0); CALCIUM 9.2 MG/DL (8.5-10.1); CHLORIDE 107 MMOL/L (99-107); CREATININE 1.04 MG/DL (0.60-1.10); ETHANOL < 0.010 GM/DL (0.0-0.010); GLUCOSE 82 MG/DL (70-104); POTASSIUM 3.5 MMOL/L (3.5-5.1); SODIUM 144 MMOL/L (135-145); TOTAL CARBON DIOXIDE 31.1 MMOL/L (24-32); TOTAL PROTEIN 6.8 G/DL (6.4-8.2); eGFR 84 ML/MIN
[2020-01-18 00:07] LABS: URINE AMPHETAMINE SCREEN POSITIVE (Neg); URINE BARBITUATE SCREEN NEGATIVE (Neg); URINE BENZODIAZEPINES SCREEN NEGATIVE (Neg); URINE CANNABINOID SCREEN NEGATIVE (Neg); URINE COCAINE SCREEN NEGATIVE (Neg); URINE METHADONE SCREEN NEGATIVE (Neg); URINE OPIATE SCREEN NEGATIVE (Neg); URINE PHENCYCLIDINE SCREEN NEGATIVE (Neg)
--- NOTE | 2020-01-18 00:53 | NUR ---
pt brought to overflow, pt ambulated with a steady gate. pt's belongings inventoried by tech.
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
[2020-01-18] MEDS ORDERED: DIVA500T2 PO (01:15)
[2020-01-18] MEDS ORDERED: OXCA300T16 PO (01:18)
[2020-01-18] MEDS ORDERED: PANT40TA4 PO (01:18)
[2020-01-18] MEDS ORDERED: RISP0.5T3 PO (01:19)
--- NOTE | 2020-01-18 02:21 | NUR ---
pt continues to sleep, no s/s of distress noted, rr unlabored.
--- NOTE | 2020-01-18 03:55 | NUR ---
Packet sent to [place] office.
--- NOTE | 2020-01-18 04:13 | NUR ---
pt continues to sleep, no s/s of distress noted, rr unlabored.
[2020-01-18 06:44] LABS: CLARITY,URINE TURBID (Clear); COLOR,URINE YELLOW (Yellow); GLUCOSE, URINE NEGATIVE (Neg); KETONES,URINE NEGATIVE (Neg); LEUKOCYTE ESTERASE ,URINE NEGATIVE (Neg); NITRITES, URINE NEGATIVE (Neg); OCCULT BLOOD,URINE NEGATIVE (Neg); PH,URINE 5.5 (4.8-8.0); PROTEIN,URINE NEGATIVE (Neg); UA COLLECTION TYPE CLN CATCH MIDSTREAM; UROBILINOGEN,URINE 0.2 E.U/dL (0.2-1.0)
[2020-01-18 06:53] LABS: AMORPHOUS URATES 4+
[2020-01-18 06:54] LABS: CAL OXALATE CRYSTALS 3+ /HPF (NEGATIVE)
[2020-01-18 06:55] LABS: BACTERIA,URINE 1+ /HPF (Neg); RBC,URINE 0-2 /HPF (0-2); SQUAMOUS EPITHELIAL CELL,UR FEW /LPF (FEW); WBC,URINE 0-4 /HPF (0-4)
[2020-01-18] MEDS: divalproex sodium 500mg tablet.DR PO SCH ×2 (08:11→20:14)
[2020-01-18] MEDS: pantoprazole 40mg Tablet.DR PO SCH (08:11)
[2020-01-18] MEDS: risperiDONE 0.5mg tablet PO SCH ×2 (08:11→20:13)
[2020-01-18] MEDS: oxcarbazepine 150mg tablet PO SCH ×2 (08:11→20:13)
--- NOTE | 2020-01-18 09:07 | NUR ---
resting in bed
--- NOTE | 2020-01-18 10:12 | NUR ---
Resting in bed
--- NOTE | 2020-01-18 10:31 | NUR ---
patient on supine,asleep,respirations regular.
--- NOTE | 2020-01-18 12:32 | NUR ---
Patient on bed asleep, we will monitor.
--- NOTE | 2020-01-18 21:49 | NUR ---
pt is sleeping, no s/s distress noted, rr unlabored.
--- NOTE | 2020-01-18 23:02 | NUR ---
pt is sleeping, no s/s distress noted, rr unlabored.
--- NOTE | 2020-01-19 00:16 | NUR ---
pt continues to sleep, rr unlabored, will continue to monitor.
--- NOTE | 2020-01-19 02:00 | NUR ---
pt continues to sleep, rr unlabored, will continue to monitor.
[2020-01-19 05:09] VITALS: BP 113/62
--- NOTE | 2020-01-19 06:52 | NUR ---
Pt sleeping in bed no distress noted. equal respirations.
[2020-01-19] MEDS: pantoprazole 40mg Tablet.DR PO SCH (07:21)
[2020-01-19] MEDS: risperiDONE 0.5mg tablet PO SCH (07:21)
[2020-01-19] MEDS: divalproex sodium 500mg tablet.DR PO SCH (07:21)
[2020-01-19] MEDS: oxcarbazepine 150mg tablet PO SCH (07:21)
--- NOTE | 2020-01-19 08:09 | NUR ---
Pt groggy and fatigued. He did take his medications and ate his breakfast and then went back to sleep.
--- NOTE | 2020-01-19 09:52 | NUR ---
Pt sleeping in bed on left side. No distress noted. Equal unlabored respirations.
--- NOTE | 2020-01-19 11:50 | NUR ---
Pt provided with a snack of jonatan crackers
--- NOTE | 2020-01-19 13:25 | NUR ---
Pt sleeping in bed on left side. No distress noted. Equal unlabored respirations.
--- NOTE | 2020-01-19 14:58 | NUR ---
Pt acccepted at [facility]
--- NOTE | 2020-01-19 16:00 | NUR ---
renetta ESCOBAR from [facility], here to do paperwork with client and escort them upstairs.
== END 2020-01-19 16:12 | disposition home or self-care (01) ==
LOC: ER 22:43
DX: S00.31XA Abrasion of nose, initial encounter (principal); S50.811A Abrasion of right forearm, initial encounter; S09.90XA Unspecified injury of head, initial encounter; R45.851 Suicidal ideations; F43.10 Post-traumatic stress disorder, unspecified; F51.5 Nightmare disorder; J45.909 Unspecified asthma, uncomplicated; F31.9 Bipolar disorder, unspecified; F20.9 Schizophrenia, unspecified; F41.9 Anxiety disorder, unspecified; F12.90 Cannabis use, unspecified, uncomplicated; F15.90 Other stimulant use, unspecified, uncomplicated; Z86.69 Personal history of other diseases of the nervous system and sense organs; Z59.0 Homelessness; Z88.0 Allergy status to penicillin; Z88.1 Allergy status to other antibiotic agents; Z88.8 Allergy status to other drugs, medicaments and biological substances; Z79.899 Other long term (current) drug therapy; Y08.89XA Assault by other specified means, initial encounter; Y93.89 Activity, other specified; Y92.89 Other specified places as the place of occurrence of the external cause; Y99.8 Other external cause status
CPT/HCPCS: 36415; 70450; 72125; 80053; 80305; 80320; 81001; 85025; 99285

== ENCOUNTER 2020-01-19 14:42 | Inpatient (IN) | payer MEDICAID ==
[~2020-01-19] VITALS: Ht 175.3 cm; Wt 53.1 kg
[~2020-01-19 14:42] MED LIST changes: -ALBU8HFA PO; -LORA-269 PO; -TAM75C PO
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
[2020-01-19] MEDS ORDERED: NICOTINE POLACRILEX 2 MG LOZENGE BC PRN (16:30)
[2020-01-19] MEDS ORDERED: acetaminophen 325mg tablet PO PRN ×2 (16:30)
[2020-01-19] MEDS ORDERED: magnesium hydroxide 30ml (MOM) UD suspension PO PRN (16:30)
[2020-01-19] MEDS ORDERED: hydrOXYzine 25 MG tablet PO PRN (16:30)
[2020-01-19] MEDS ORDERED: traZODone 50mg tablet PO PRN (16:30)
[2020-01-19] MEDS ORDERED: loperamide 2mg capsule PO PRN (16:30)
[2020-01-19] MEDS ORDERED: mag hydrox/Alum hydrox/simeth 30ml oral suspension PO PRN (16:30)
[2020-01-19] MEDS ORDERED: quetiapine 100mg tablet PO PRN (16:30)
[2020-01-19 19:52] VITALS: BP 107/66
[2020-01-19] MEDS: oxcarbazepine 150mg tablet PO SCH (20:20)
[2020-01-19] MEDS: divalproex sodium 500mg tablet.DR PO SCH (20:21)
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
[2020-01-20 07:57] VITALS: BP 103/66
[2020-01-20 08:06] LABS: HEMOGLOBIN A1C 4.9 % (4.5-6.2)
[2020-01-20 08:20] LABS: CHOL/HDL RATIO 4.6 (0.00-4.99); CHOLESTEROL 160 MG/DL (0-200); HDL CHOLESTEROL 35 MG/DL (35-60); LDL CHOLESTEROL 108 MG/DL (50-100); TRIGLYCERIDES 81 MG/DL (20-135)
[2020-01-20] MEDS: pantoprazole 40mg Tablet.DR PO SCH (08:26)
[2020-01-20] MEDS: nicotine 21mg patch - 24 hr TD SCH (08:26)
[2020-01-20] MEDS: oxcarbazepine 150mg tablet PO SCH ×2 (08:26→20:19)
[2020-01-20] MEDS: divalproex sodium 500mg tablet.DR PO SCH ×2 (08:26→20:19)
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
[2020-01-20] MEDS: lactose-reduced food (Ensure High Protein) 237ml bottle PO SCH (18:00)
[2020-01-20 20:00] VITALS: BP 109/73
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
[2020-01-21] MEDS: pantoprazole 40mg Tablet.DR PO SCH (07:38)
[2020-01-21] MEDS: divalproex sodium 500mg tablet.DR PO SCH (07:38)
[2020-01-21] MEDS: oxcarbazepine 150mg tablet PO SCH (07:38)
[2020-01-21] MEDS: nicotine 21mg patch - 24 hr TD SCH (07:38)
[2020-01-21] MEDS: lactose-reduced food (Ensure High Protein) 237ml bottle PO SCH (08:30)
[2020-01-21 08:52] VITALS: BP 117/62
--- NOTE | 2020-01-21 10:40 | NUR ---
low BMI trigger: BMI 17.3. Pt admit w/ SI and homicidal ideations hx meth/THC abuse and homeless. 53.1kg standing scale wt this admit w/ 55kg wt prior October admit this year. PO 100% regular diet w/ ensure high protein TIDWM added per MD currently meeting needs. Addendum: 01/21/20 at [address] Amended: Links added.
[2020-01-21] MEDS ORDERED: TRAZ-251 PO (14:54)
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
--- NOTE | 2020-01-21 15:41 | NUR ---
Discharge Note: Client to discharge today at 1545 hours. His condition has greatly improved and he states he is no longer a danger to others. Client will discharge to relatives camp this evening and will have his own encampment tomorrow. This client has verbalized that he knows what to do if he feels as if he may harm others. Client was discharged with all belongings. He is alert and oriented x 4 and understands condition of release.
== END 2020-01-21 15:45 | disposition short-term general hospital (02) | DRG 753 ==
LOC: ADULT MH 14:42
PROVIDERS: ADMIT Psychiatry & Neurology Psychiatry; ATTEND Psychiatry & Neurology Psychiatry
DX: F39 Unspecified mood [affective] disorder (principal); R45.851 Suicidal ideations; R45.850 Homicidal ideations; F15.90 Other stimulant use, unspecified, uncomplicated; Z88.1 Allergy status to other antibiotic agents; Z88.0 Allergy status to penicillin; Z88.8 Allergy status to other drugs, medicaments and biological substances; G40.909 Epilepsy, unspecified, not intractable, without status epilepticus; F17.210 Nicotine dependence, cigarettes, uncomplicated; F12.90 Cannabis use, unspecified, uncomplicated; F20.9 Schizophrenia, unspecified; F43.10 Post-traumatic stress disorder, unspecified; J45.909 Unspecified asthma, uncomplicated; Z59.0 Homelessness
CPT/HCPCS: 36415; 80061; 83036; 84443; 87081; 99285

== ENCOUNTER 2020-02-29 11:12 | Emergency (ER) | payer MEDICAID ==
[~2020-02-29] VITALS: Ht 175.3 cm; Wt 54.5 kg
[~2020-02-29 11:12] MED LIST changes: -RISP0.5T3 PO; +TRAZ-251 PO
[2020-02-29 11:14] VITALS: BP 125/89
--- NOTE | 2020-02-29 12:13 | NUR ---
Pt is calm and cooperative. Pt is awaiting provider evaluation by the ED MD.
[2020-02-29] MEDS ORDERED: NAPR-1166 PO (12:32)
[2020-02-29] MEDS ORDERED: ARIP15TA8 PO (12:32)
[2020-02-29] MEDS ORDERED: TRAZ-251 PO (12:32)
[2020-02-29] MEDS ORDERED: HYDR50CA5 PO (12:32)
[2020-02-29 12:57] LABS: URINE AMPHETAMINE SCREEN NEGATIVE (Neg); URINE BARBITUATE SCREEN NEGATIVE (Neg); URINE BENZODIAZEPINES SCREEN NEGATIVE (Neg); URINE CANNABINOID SCREEN NEGATIVE (Neg); URINE COCAINE SCREEN NEGATIVE (Neg); URINE METHADONE SCREEN NEGATIVE (Neg); URINE OPIATE SCREEN NEGATIVE (Neg); URINE PHENCYCLIDINE SCREEN NEGATIVE (Neg)
[2020-02-29 13:08] LABS: BASOPHILS # (AUTO) 0.1 X10'3 (0-0.2); BASOPHILS % (AUTO) 1.4 % (0-1); EOSINOPHILS # (AUTO) 0.2 X10'3 (0-0.9); EOSINOPHILS % (AUTO) 1.9 % (0-6); HEMATOCRIT 42.3 % (42.0-52.0); LYMPHOCYTES # (AUTO) 2.5 X10'3 (1.1-4.8); LYMPHOCYTES % (AUTO) 27.8 % (21-51); MEAN CORPUSCULAR HGB CONC 33.2 g/dL (33.0-36.5); MEAN CORPUSCULAR VOLUME 87.5 FL (78-98); MEAN PLATELET VOLUME 8.5 FL (7.4-10.4); MONOCYTES # (AUTO) 0.7 X10'3 (0-0.9); MONOCYTES % (AUTO) 8.4 % (2-12); NEUTROPHILS # (AUTO) 5.4 X10'3 (1.8-7.7); NEUTROPHILS % (AUTO) 60.5 % (42-75); PLATELET COUNT 232 X10'3 (140-440); RED BLOOD COUNT 4.84 X10'6 (4.70-6.10); RED CELL DISTRIBUTION WIDTH 13.5 % (11.5-14.5); WHITE BLOOD COUNT 8.9 X10'3 (4.5-11.0)
--- NOTE | 2020-02-29 13:10 | NUR ---
Pt is calm and cooperative. Pt has no complaints at this time.
[2020-02-29 13:25] LABS: ANION GAP 5 (8-16); BILIRUBIN,TOTAL 0.3 MG/DL (0.1-1.0); BLOOD UREA NITROGEN 15 MG/DL (7-18); BUN/CREATININE RATIO 16.5 (5.4-32.0); CALCIUM 8.6 MG/DL (8.5-10.1); CHLORIDE 109 MMOL/L (99-107); CREATININE 0.91 MG/DL (0.60-1.10); GLUCOSE 109 MG/DL (70-104); POTASSIUM 3.9 MMOL/L (3.5-5.1); SODIUM 144 MMOL/L (135-145); eGFR > 90 ML/MIN
[2020-02-29 13:26] LABS: ALANINE AMINOTRANSFERASE 26 U/L (12-78); ALBUMIN 2.6 G/DL (3.4-5.0); ALBUMIN/GLOBULIN RATIO 0.6 (1.1-1.5); ALKALINE PHOSPHATASE 51 IU/L (46-116); ASPARTATE AMINO TRANSFERASE 18 U/L (10-37); ETHANOL < 0.010 GM/DL (0.0-0.010)
--- NOTE | 2020-02-29 14:10 | NUR ---
Pt is calm and cooperative. Pt given a sandwich, juice, string cheese, and chips. Pt is awaiting mental health evaluation.
[2020-02-29] MEDS ORDERED: LORazepam 1 MG tablet PO ONE (15:00)
--- NOTE | 2020-02-29 15:00 | NUR ---
Pt is rocking back and forth on the bed yelling "can't a person get something for fucking pain?" Dillon KITCHEN notified and order for Ativan received.
[2020-02-29] MEDS ORDERED: ibuprofen tablet 400 MG TABLET PO ONE ×2 (15:05→15:10)
[2020-02-29] MEDS ORDERED: ibuprofen 200mg tablet PO ONE (15:05)
--- NOTE | 2020-02-29 15:28 | NUR ---
Pt ambulatory with staff to Overflow for futher evaluation and treatment while pending mental health evaluation. Care of the patient transferred to Genny Kelsey RN at this time.
[2020-02-29] MEDS ORDERED: naproxen 375mg tablet PO PRN (15:30)
--- NOTE | 2020-02-29 15:30 | NUR ---
pt was walking over from er 14 with rn and tech
[2020-02-29] MEDS ORDERED: divalproex sodium 500mg tablet.DR PO SCH (20:00)
[2020-02-29] MEDS ORDERED: oxcarbazepine 150mg tablet PO SCH (20:00)
[2020-03-01] MEDS ORDERED: ARIPIPRAZOLE 15 MG TABLET PO SCH (08:00)
[2020-03-01] MEDS ORDERED: pantoprazole 40mg Tablet.DR PO SCH (08:00)
== END 2020-02-29 17:54 | disposition home or self-care (01) ==
LOC: ER 11:13
DX: F19.10 Other psychoactive substance abuse, uncomplicated (principal); R45.851 Suicidal ideations; J45.909 Unspecified asthma, uncomplicated; F41.9 Anxiety disorder, unspecified; F31.9 Bipolar disorder, unspecified; F41.0 Panic disorder [episodic paroxysmal anxiety]; F20.9 Schizophrenia, unspecified; F12.90 Cannabis use, unspecified, uncomplicated; F15.90 Other stimulant use, unspecified, uncomplicated; Z88.0 Allergy status to penicillin; Z88.1 Allergy status to other antibiotic agents; Z88.5 Allergy status to narcotic agent; Z91.011 Allergy to milk products; Z79.899 Other long term (current) drug therapy
CPT/HCPCS: 36415; 80053; 80305; 80320; 85025; 99285

== ENCOUNTER 2020-03-25 20:51 | Emergency (ER) | payer MEDICAID ==
[~2020-03-25] VITALS: Ht 175.3 cm; Wt 54.0 kg
[~2020-03-25 20:51] MED LIST changes: +ARIP15TA8 PO; +NAPR-1166 PO; -TRAZ-251 PO
[2020-03-25 21:03] VITALS: BP 121/78
[2020-03-25] MEDS ORDERED: proparacaine 0.5% ophthalmic drops 15ml RIGHTEYE ONE (21:55)
== END 2020-03-25 22:28 | disposition home or self-care (01) ==
LOC: ER 20:53
DX: H57.11 Ocular pain, right eye (principal); J45.909 Unspecified asthma, uncomplicated; F41.9 Anxiety disorder, unspecified; F31.9 Bipolar disorder, unspecified; F20.9 Schizophrenia, unspecified; F12.90 Cannabis use, unspecified, uncomplicated; F15.90 Other stimulant use, unspecified, uncomplicated; Z86.69 Personal history of other diseases of the nervous system and sense organs; Z59.0 Homelessness; Z88.0 Allergy status to penicillin; Z88.1 Allergy status to other antibiotic agents; Z88.8 Allergy status to other drugs, medicaments and biological substances; Z88.5 Allergy status to narcotic agent; Z79.899 Other long term (current) drug therapy
CPT/HCPCS: 99283

== ENCOUNTER 2020-04-19 12:26 | Emergency (ER) | payer MEDICAID ==
[~2020-04-19] VITALS: Ht 175.3 cm; Wt 51.0 kg
[~2020-04-19 12:26] MED LIST changes: -PANT40TA4 PO; +PANT40TA54 PO
[2020-04-19 12:44] VITALS: BP 123/73
[2020-04-19] MEDS ORDERED: LORazepam 1 MG tablet PO ONE (14:35)
[2020-04-19] MEDS ORDERED: DIVA500T2 PO (14:38)
== END 2020-04-19 14:53 | disposition home or self-care (01) ==
LOC: ER 12:27
DX: F15.20 Other stimulant dependence, uncomplicated (principal); J45.909 Unspecified asthma, uncomplicated; F41.9 Anxiety disorder, unspecified; F31.9 Bipolar disorder, unspecified; F20.9 Schizophrenia, unspecified; F12.90 Cannabis use, unspecified, uncomplicated; Z86.69 Personal history of other diseases of the nervous system and sense organs; Z59.0 Homelessness; Z88.0 Allergy status to penicillin; Z88.1 Allergy status to other antibiotic agents; Z91.011 Allergy to milk products; Z88.5 Allergy status to narcotic agent; Z79.899 Other long term (current) drug therapy
CPT/HCPCS: 99283

== ENCOUNTER 2020-04-22 11:39 | Emergency (ER) | payer MEDICAID ==
[~2020-04-22] VITALS: Ht 175.3 cm; Wt 52.6 kg
[2020-04-22 12:03] VITALS: BP 127/83
== END 2020-04-22 12:25 | disposition home or self-care (01) ==
LOC: ER 11:39
DX: F15.10 Other stimulant abuse, uncomplicated (principal); F11.10 Opioid abuse, uncomplicated; J45.909 Unspecified asthma, uncomplicated; F41.9 Anxiety disorder, unspecified; F31.9 Bipolar disorder, unspecified; F20.9 Schizophrenia, unspecified; Z86.69 Personal history of other diseases of the nervous system and sense organs; Z59.0 Homelessness; Z88.0 Allergy status to penicillin; Z88.1 Allergy status to other antibiotic agents; Z88.5 Allergy status to narcotic agent; Z79.899 Other long term (current) drug therapy
CPT/HCPCS: 99281

== ENCOUNTER 2020-05-10 11:26 | Emergency (ER) | payer MEDICAID ==
[~2020-05-10] VITALS: Ht 175.3 cm; Wt 54.0 kg
[2020-05-10 11:40] VITALS: BP 129/83
[2020-05-10] MEDS ORDERED: sulfamethoxazole/trimethoprim DS (800/160mg) tablet PO ONE (12:20)
[2020-05-10] MEDS ORDERED: cephalexin 500mg capsule PO ONE (12:20)
[2020-05-10] MEDS ORDERED: SULF1TAB49 PO (12:48)
[2020-05-10] MEDS ORDERED: CEPH-572 PO (12:48)
== END 2020-05-10 13:12 | disposition home or self-care (01) ==
LOC: ER 11:27
DX: L02.512 Cutaneous abscess of left hand (principal); J45.909 Unspecified asthma, uncomplicated; F41.9 Anxiety disorder, unspecified; F31.9 Bipolar disorder, unspecified; F20.9 Schizophrenia, unspecified; F12.90 Cannabis use, unspecified, uncomplicated; F15.90 Other stimulant use, unspecified, uncomplicated; Z86.69 Personal history of other diseases of the nervous system and sense organs; Z59.0 Homelessness; Z88.0 Allergy status to penicillin; Z79.2 Long term (current) use of antibiotics; Z88.1 Allergy status to other antibiotic agents; Z88.5 Allergy status to narcotic agent; Z91.018 Allergy to other foods; Z79.899 Other long term (current) drug therapy
CPT/HCPCS: 99283

== ENCOUNTER 2020-06-05 15:35 | Emergency (ER) | payer MEDICAID ==
[~2020-06-05] VITALS: Ht 175.3 cm; Wt 56.8 kg
[2020-06-05 16:46] LABS: CLARITY,URINE CLEAR (Clear); COLOR,URINE YELLOW (Yellow); GLUCOSE, URINE NEGATIVE (Neg); KETONES,URINE NEGATIVE (Neg); LEUKOCYTE ESTERASE ,URINE NEGATIVE (Neg); NITRITES, URINE NEGATIVE (Neg); OCCULT BLOOD,URINE NEGATIVE (Neg); PROTEIN,URINE NEGATIVE (Neg); UROBILINOGEN,URINE 0.2 E.U/dL (0.2-1.0)
[2020-06-05 16:52] LABS: UA COLLECTION TYPE VOIDED
[2020-06-05 16:56] LABS: URINE AMPHETAMINE SCREEN POSITIVE (Neg); URINE BARBITUATE SCREEN NEGATIVE (Neg); URINE BENZODIAZEPINES SCREEN NEGATIVE (Neg); URINE CANNABINOID SCREEN NEGATIVE (Neg); URINE COCAINE SCREEN NEGATIVE (Neg); URINE METHADONE SCREEN NEGATIVE (Neg); URINE OPIATE SCREEN NEGATIVE (Neg); URINE PHENCYCLIDINE SCREEN NEGATIVE (Neg)
[2020-06-05 17:10] LABS: BASOPHILS # (AUTO) 0.1 X10'3 (0-0.2); BASOPHILS % (AUTO) 0.9 % (0-1); EOSINOPHILS # (AUTO) 0.1 X10'3 (0-0.9); EOSINOPHILS % (AUTO) 1.3 % (0-6); HEMATOCRIT 40.5 % (42.0-52.0); HEMOGLOBIN 13.7 g/dl (14.0-17.9); LYMPHOCYTES # (AUTO) 2.1 X10'3 (1.1-4.8); LYMPHOCYTES % (AUTO) 22.7 % (21-51); MEAN CORPUSCULAR HEMOGLOBIN 29.4 PG (27.0-31.0); MEAN CORPUSCULAR HGB CONC 33.8 g/dL (33.0-36.5); MEAN CORPUSCULAR VOLUME 87.1 FL (78-98); MEAN PLATELET VOLUME 8.5 FL (7.4-10.4); MONOCYTES % (AUTO) 10.9 % (2-12); NEUTROPHILS % (AUTO) 64.2 % (42-75); PLATELET COUNT 272 X10'3 (140-440); RED BLOOD COUNT 4.65 X10'6 (4.70-6.10); RED CELL DISTRIBUTION WIDTH 14.4 % (11.5-14.5); WHITE BLOOD COUNT 9.3 X10'3 (4.5-11.0)
--- NOTE | 2020-06-05 17:17 | NUR ---
PT GIVEN SUPPLIES TO WASH HIMSELF BUT HAS NOT WASHED UP YET.
[2020-06-05 17:25] LABS: ALANINE AMINOTRANSFERASE 27 U/L (12-78); ALBUMIN 3.7 G/DL (3.4-5.0); ALKALINE PHOSPHATASE 66 IU/L (46-116); ANION GAP 5 (8-16); ASPARTATE AMINO TRANSFERASE 15 U/L (10-37); BILIRUBIN,TOTAL 0.3 MG/DL (0.1-1.0); BLOOD UREA NITROGEN 20 MG/DL (7-18); CALCIUM 8.9 MG/DL (8.5-10.1); CHLORIDE 107 MMOL/L (99-107); CREATININE 0.77 MG/DL (0.60-1.10); ETHANOL < 0.010 GM/DL (0.0-0.010); GLUCOSE 76 MG/DL (70-104); POTASSIUM 4.1 MMOL/L (3.5-5.1); SODIUM 144 MMOL/L (135-145); TOTAL CARBON DIOXIDE 32.5 MMOL/L (24-32); TOTAL PROTEIN 7.3 G/DL (6.4-8.2); eGFR > 90 ML/MIN
--- NOTE | 2020-06-05 17:36 | NUR ---
PT SLEEPING, NO S/S DISTRESS OR AGITATION.
--- NOTE | 2020-06-05 17:57 | NUR ---
AMI PALOMINO PT GIVEN PERSONAL HYGIENE ITEMS Addendum: 06/05/20 at 1758 by DEBORAH MG PALOMINO
[2020-06-05] MEDS ORDERED: naproxen 375mg tablet PO PRN (18:20)
--- NOTE | 2020-06-05 18:30 | NUR ---
PT SAT UP TO THE SIDE OF HIS BED TO EAT DINNER AND REQUESTED MEDICATION FOR PAIN
--- NOTE | 2020-06-05 19:30 | NUR ---
PT LAID BACK DOWN AFTER EATING AND NOW APPEARS TO BE RESTING COMFORTABLY WITH NO S/S OF DISTRESS NOTED
[2020-06-05] MEDS: divalproex sodium 500mg tablet.DR PO SCH (20:03)
[2020-06-05] MEDS: oxcarbazepine 150mg tablet PO SCH (20:03)
--- NOTE | 2020-06-05 20:30 | NUR ---
PT LYING IN HIS BED RESTING WITH NO S/S OF DISTRESS NOTED. PT WOKE UP TO TAKE HIS MEDICATIONS THEN WENT RIGHT BACK TO SLEEP
--- NOTE | 2020-06-05 21:25 | NUR ---
PT IS LYING IN HIS BED APPEARING TO BE RESTING COMFORTABLY. NO APPARENT S/S OF DISTRESS NOTED
--- NOTE | 2020-06-05 22:31 | NUR ---
Pt continues to appear to be resting comfortably in bed. No s/s of distress noted
--- NOTE | 2020-06-05 23:30 | NUR ---
Pt lying in bed appears to be resting comfortably. No apparent s/s of distress noted.
--- NOTE | 2020-06-06 00:15 | NUR ---
Patient got up to ambulate to the restroom and upon returning to bed pt sat upright on his bed and began crying out screaming "you're hurting my hand let go". Pt was asked what was wrong and he stated "my hand is killing me cause they are hurting it". Pt then began to talk to himself saying to his hand to stop hurting. Pt then laid back down in bed and went back to resting comfortably. No s/s of distress noted
--- NOTE | 2020-06-06 01:07 | NUR ---
Pt lying in bed appears to be resting comfortably. No apparent s/s of distress noted.
--- NOTE | 2020-06-06 02:00 | NUR ---
Pt lying in bed appears to be resting comfortably. No apparent s/s of distress noted.
--- NOTE | 2020-06-06 02:48 | NUR ---
Pt lying in bed appears to be resting comfortably. No apparent s/s of distress noted.
--- NOTE | 2020-06-06 03:51 | NUR ---
Pt lying in bed appears to be resting comfortably. No apparent s/s of distress noted.
--- NOTE | 2020-06-06 04:45 | NUR ---
Pt lying in bed appears to be resting comfortably. No apparent s/s of distress noted.
--- NOTE | 2020-06-06 05:12 | NUR ---
Pt lying in bed appears to be resting comfortably. No apparent s/s of distress noted.
[2020-06-06 05:40] VITALS: BP 120/85
--- NOTE | 2020-06-06 07:21 | NUR ---
pt is sleeping at this time ,will cont to monitor.
--- NOTE | 2020-06-06 07:50 | NUR ---
pt up in bed went to restroom to urinate ,came back and laying in his lft lateral position,will cont to monitor.
[2020-06-06] MEDS ORDERED: ARIPIPRAZOLE 15 MG TABLET PO SCH (08:00)
[2020-06-06] MEDS ORDERED: pantoprazole 40mg Tablet.DR PO SCH (08:00)
--- NOTE | 2020-06-06 08:24 | NUR ---
pt up in bed eating his breakfast ,pt asked how he is doing? pt replied "i am doing good".
--- NOTE | 2020-06-06 08:43 | NUR ---
being evaluated by [facility]
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
--- NOTE | 2020-06-06 08:53 | NUR ---
[facility] eval at bedside assessing the pt ,will cont to monitor.
[2020-06-06] MEDS: oxcarbazepine 150mg tablet PO SCH (08:57)
[2020-06-06] MEDS: divalproex sodium 500mg tablet.DR PO SCH (08:58)
--- NOTE | 2020-06-06 09:02 | NUR ---
pt medicated with scheduled med ,pt informed about the meds he is taking ,pt verbalized understanding ,will cont to monitor.
== END 2020-06-06 10:19 | disposition home or self-care (01) ==
LOC: ER 15:36
DX: R45.851 Suicidal ideations (principal); J45.909 Unspecified asthma, uncomplicated; F41.9 Anxiety disorder, unspecified; F31.9 Bipolar disorder, unspecified; F20.9 Schizophrenia, unspecified; F12.90 Cannabis use, unspecified, uncomplicated; F15.90 Other stimulant use, unspecified, uncomplicated; Z86.69 Personal history of other diseases of the nervous system and sense organs; Z59.0 Homelessness; Z88.0 Allergy status to penicillin; Z88.5 Allergy status to narcotic agent; Z88.8 Allergy status to other drugs, medicaments and biological substances; Z79.899 Other long term (current) drug therapy
CPT/HCPCS: 36415; 80053; 80305; 80320; 81003; 85025; 99285

== ENCOUNTER 2020-07-05 23:35 | Emergency (ER) | payer MEDICAID ==
[~2020-07-05] VITALS: Ht 175.3 cm; Wt 61.4 kg
[2020-07-05 23:43] VITALS: BP 134/86
[2020-07-06] MEDS ORDERED: ALBU8.5H8 INH (01:20)
== END 2020-07-06 04:00 | disposition home or self-care (01) ==
LOC: ER 23:35
DX: R43.9 Unspecified disturbances of smell and taste (principal); J45.909 Unspecified asthma, uncomplicated; F31.9 Bipolar disorder, unspecified; F20.9 Schizophrenia, unspecified; F12.10 Cannabis abuse, uncomplicated; F15.10 Other stimulant abuse, uncomplicated; Z88.5 Allergy status to narcotic agent; Z88.0 Allergy status to penicillin; Z88.1 Allergy status to other antibiotic agents; Z79.899 Other long term (current) drug therapy; Z59.0 Homelessness; Z20.828 Contact with and (suspected) exposure to other viral communicable diseases
CPT/HCPCS: 36415; 87635; 99283

== ENCOUNTER 2020-08-11 03:20 | Emergency (ER) | payer MEDICAID ==
[~2020-08-11] VITALS: Ht 175.3 cm; Wt 56.0 kg
[~2020-08-11 03:20] MED LIST changes: +ALBU8.5H8 INH
--- NOTE | 2020-08-11 05:36 | NUR ---
PT HAS BEEN SLEEPING ON GURNEY WITH NO DISTRESS NOTED.
[2020-08-11] MEDS ORDERED: DIVA500T2 PO (05:38)
[2020-08-11] MEDS ORDERED: ALBU8.5H8 INH (05:38)
[2020-08-11] MEDS ORDERED: divalproex 250mg tablet, delayed-release PO ONE (05:40)
[2020-08-11] MEDS ORDERED: OLANZapine 5mg rapidly disint. tablet PO ONE (05:40)
[2020-08-11 06:03] VITALS: BP 134/87
== END 2020-08-11 06:06 | disposition home or self-care (01) ==
LOC: ER 03:21
DX: F15.10 Other stimulant abuse, uncomplicated (principal); R45.850 Homicidal ideations; R45.851 Suicidal ideations; J45.909 Unspecified asthma, uncomplicated; F32.9 Major depressive disorder, single episode, unspecified; F41.9 Anxiety disorder, unspecified; F20.9 Schizophrenia, unspecified; F17.200 Nicotine dependence, unspecified, uncomplicated; Z86.69 Personal history of other diseases of the nervous system and sense organs; Z59.0 Homelessness; Z88.0 Allergy status to penicillin; Z88.1 Allergy status to other antibiotic agents; Z88.6 Allergy status to analgesic agent; Z91.011 Allergy to milk products; Z79.899 Other long term (current) drug therapy
CPT/HCPCS: 99283

== ENCOUNTER 2020-08-29 20:49 | Emergency (ER) | payer MEDICAID ==
[~2020-08-29] VITALS: Ht 175.3 cm; Wt 51.4 kg
[2020-08-29 20:53] VITALS: BP 121/84
--- NOTE | 2020-08-29 22:40 | NUR ---
pt eyes closed respirations even. in no apparent distress
== END 2020-08-29 23:42 | disposition home or self-care (01) ==
LOC: ER 20:49
DX: S09.90XA Unspecified injury of head, initial encounter (principal); J45.909 Unspecified asthma, uncomplicated; F41.9 Anxiety disorder, unspecified; F31.9 Bipolar disorder, unspecified; F20.9 Schizophrenia, unspecified; F17.200 Nicotine dependence, unspecified, uncomplicated; F12.90 Cannabis use, unspecified, uncomplicated; F15.90 Other stimulant use, unspecified, uncomplicated; Z86.69 Personal history of other diseases of the nervous system and sense organs; Z59.0 Homelessness; Z88.0 Allergy status to penicillin; Z88.1 Allergy status to other antibiotic agents; Z88.5 Allergy status to narcotic agent; Z91.018 Allergy to other foods; Z79.899 Other long term (current) drug therapy; X58.XXXA Exposure to other specified factors, initial encounter; Y93.89 Activity, other specified; Y92.89 Other specified places as the place of occurrence of the external cause; Y99.8 Other external cause status
CPT/HCPCS: 70450; 99284

== ENCOUNTER 2020-09-20 21:10 | Emergency (ER) | payer MEDICAID ==
[~2020-09-20] VITALS: Ht 175.3 cm; Wt 55.5 kg
[2020-09-20 21:21] VITALS: BP 131/90
== END 2020-09-20 23:26 | disposition left against medical advice (07) ==
LOC: ER 21:11
DX: L02.419 Cutaneous abscess of limb, unspecified (principal); Z53.21 Procedure and treatment not carried out due to patient leaving prior to being seen by health care provider

== ENCOUNTER 2020-11-08 22:55 | Emergency (ER) | payer MEDICAID ==
[~2020-11-08] VITALS: Ht 175.3 cm; Wt 56.4 kg
--- NOTE | 2020-11-09 00:30 | NUR ---
AWAKE, TALKING TO THE WALL AND MOVING HEAD BACK AND FORTH, REPORTS VISUAL AND AUDITORY HALLUCINATIONS.
[2020-11-09] MEDS ORDERED: ziprasidone 20mg capsule PO STA (00:38)
[2020-11-09 00:40] LABS: BASOPHILS # (AUTO) 0.1 X10'3 (0-0.2); EOSINOPHILS # (AUTO) 0.2 X10'3 (0-0.9); EOSINOPHILS % (AUTO) 2.8 % (0-6); HEMATOCRIT 38.1 % (42.0-52.0); HEMOGLOBIN 12.6 g/dl (14.0-17.9); LYMPHOCYTES # (AUTO) 3.5 X10'3 (1.1-4.8); LYMPHOCYTES % (AUTO) 39.2 % (21-51); MEAN CORPUSCULAR HEMOGLOBIN 27.1 PG (27.0-31.0); MEAN CORPUSCULAR VOLUME 82.1 FL (78-98); MEAN PLATELET VOLUME 8.2 FL (7.4-10.4); MONOCYTES % (AUTO) 10.8 % (2-12); NEUTROPHILS # (AUTO) 4.1 X10'3 (1.8-7.7); NEUTROPHILS % (AUTO) 46.2 % (42-75); PLATELET COUNT 291 X10'3 (140-440); RED BLOOD COUNT 4.65 X10'6 (4.70-6.10); RED CELL DISTRIBUTION WIDTH 16.2 % (11.5-14.5); WHITE BLOOD COUNT 8.8 X10'3 (4.5-11.0)
[2020-11-09 00:51] LABS: URINE AMPHETAMINE SCREEN POSITIVE (Neg); URINE BARBITUATE SCREEN NEGATIVE (Neg); URINE BENZODIAZEPINES SCREEN NEGATIVE (Neg); URINE CANNABINOID SCREEN NEGATIVE (Neg); URINE COCAINE SCREEN NEGATIVE (Neg); URINE METHADONE SCREEN NEGATIVE (Neg); URINE OPIATE SCREEN NEGATIVE (Neg); URINE PHENCYCLIDINE SCREEN NEGATIVE (Neg)
[2020-11-09 00:55] LABS: ALANINE AMINOTRANSFERASE 21 U/L (12-78); ALBUMIN 3.4 G/DL (3.4-5.0); ALBUMIN/GLOBULIN RATIO 0.9 (1.1-1.5); ALKALINE PHOSPHATASE 81 IU/L (46-116); ANION GAP 7 (8-16); ASPARTATE AMINO TRANSFERASE 16 U/L (10-37); BILIRUBIN,TOTAL 0.2 MG/DL (0.1-1.0); BLOOD UREA NITROGEN 20 MG/DL (7-18); CALCIUM 9.2 MG/DL (8.5-10.1); CHLORIDE 105 MMOL/L (99-107); CREATININE 0.77 MG/DL (0.60-1.10); ETHANOL < 0.010 GM/DL (0.0-0.010); GLUCOSE 88 MG/DL (70-104); POTASSIUM 4.1 MMOL/L (3.5-5.1); SODIUM 144 MMOL/L (135-145); TOTAL CARBON DIOXIDE 31.6 MMOL/L (24-32); TOTAL PROTEIN 7.1 G/DL (6.4-8.2); eGFR > 90 ML/MIN
--- NOTE | 2020-11-09 01:38 | NUR ---
DOXYCYCLINE TO PHARMACY
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
--- NOTE | 2020-11-09 04:00 | NUR ---
SLEEPING, NO SIGNS OF DISTRESS
--- NOTE | 2020-11-09 04:56 | NUR ---
LYING ON RIGHT SIDE NO SIGNS OF DISTRESS EYES CLOSED EUPNEIC RESPIRATIONS
[2020-11-09 05:55] VITALS: BP 122/79
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
--- NOTE | 2020-11-09 06:06 | NUR ---
Patient's packet was sent to [facility].
--- NOTE | 2020-11-09 06:12 | NUR ---
REVERIFIED TEMP AT 98.0 ASYMPTOMATIC
--- NOTE | 2020-11-09 08:23 | NUR ---
REPORT TO DALTON OROSCO AND TAKEN TO OVERFLOW UNIT WITH BREAKFAST TRAY.
--- NOTE | 2020-11-09 08:28 | NUR ---
Received pt to ER overflow from main ER. Pt had no complaints and no requests and curled up in bed.
--- NOTE | 2020-11-09 09:00 | NUR ---
Pt remains sleeping in bed without complaints.
--- NOTE | 2020-11-09 11:00 | NUR ---
Pt currently sleeping in bed without complaints or signs of distress.
--- NOTE | 2020-11-09 12:44 | NUR ---
Pt mostly cooperative with evaluation by [facility] where he was found to not meet criteria for 5150. Pt will be discharge to self soon. Pt denies S.I. / H.I.
== END 2020-11-09 13:10 | disposition home or self-care (01) ==
LOC: ER 22:56
DX: R45.851 Suicidal ideations (principal); Z20.822 Contact with and (suspected) exposure to COVID-19; R45.850 Homicidal ideations; F15.10 Other stimulant abuse, uncomplicated; J45.909 Unspecified asthma, uncomplicated; F41.9 Anxiety disorder, unspecified; F31.9 Bipolar disorder, unspecified; F20.9 Schizophrenia, unspecified; F12.90 Cannabis use, unspecified, uncomplicated; Z86.69 Personal history of other diseases of the nervous system and sense organs; Z59.0 Homelessness; Z88.0 Allergy status to penicillin; Z88.1 Allergy status to other antibiotic agents; Z88.8 Allergy status to other drugs, medicaments and biological substances; Z88.5 Allergy status to narcotic agent; Z79.899 Other long term (current) drug therapy
CPT/HCPCS: 36415; 80053; 80305; 80320; 85025; 87426; 99285

== ENCOUNTER 2021-08-29 21:58 | Emergency (ER) | payer MEDICAID ==
[~2021-08-29] VITALS: Ht 175.3 cm; Wt 60.0 kg
[~2021-08-29 21:58] MED LIST changes: +ALBU8.5H17 INH; -ALBU8.5H8 INH; -ARIP15TA8 PO; -DIVA500T2 PO; -NAPR-1166 PO; -PANT40TA54 PO
[2021-08-29 22:00] VITALS: BP 125/79
== END 2021-08-30 00:50 | disposition left against medical advice (07) ==
LOC: ER 21:59
DX: R45.851 Suicidal ideations (principal); Z53.21 Procedure and treatment not carried out due to patient leaving prior to being seen by health care provider

== ENCOUNTER 2021-09-02 00:19 | Emergency (ER) | payer MEDICAID ==
[~2021-09-02] VITALS: Ht 175.3 cm; Wt 56.8 kg
[2021-09-02] MEDS ORDERED: sulfamethoxazole/trimethoprim DS (800/160mg) tablet PO ONE (00:30)
[2021-09-02] MEDS ORDERED: LIDOcaine 1% W/epiNEPHrine 1:100,000 20ml vial IJ ONE (04:30)
[2021-09-02] MEDS ORDERED: LIDOcaine 1% W/epiNEPHrine 1:200,000 10ml vial IJ ONE (04:30)
[2021-09-02] MEDS ORDERED: SULF1TAB49 PO (04:35)
[2021-09-02] MEDS ORDERED: HYDROcodone/acetaminophen 10/325mg tab PO ONE (04:50)
[2021-09-02] MEDS ORDERED: naproxen 500mg tablet PO ONE (04:50)
[2021-09-02 05:25] VITALS: BP 124/80
== END 2021-09-02 05:30 | disposition home or self-care (01) ==
LOC: ER 00:20
DX: Z13.89 Encounter for screening for other disorder (principal); L03.211 Cellulitis of face; H44.002 Unspecified purulent endophthalmitis, left eye; J45.909 Unspecified asthma, uncomplicated; F41.9 Anxiety disorder, unspecified; F31.9 Bipolar disorder, unspecified; F20.9 Schizophrenia, unspecified; F17.200 Nicotine dependence, unspecified, uncomplicated; F12.90 Cannabis use, unspecified, uncomplicated; F15.90 Other stimulant use, unspecified, uncomplicated; Z86.69 Personal history of other diseases of the nervous system and sense organs; Z59.00 Homelessness unspecified; Z88.0 Allergy status to penicillin; Z88.1 Allergy status to other antibiotic agents; Z88.5 Allergy status to narcotic agent; Z88.8 Allergy status to other drugs, medicaments and biological substances; Z79.2 Long term (current) use of antibiotics; Z79.899 Other long term (current) drug therapy
CPT/HCPCS: 10060; 99284

== ENCOUNTER 2021-09-16 02:38 | Emergency (ER) | payer MEDICAID ==
[~2021-09-16] VITALS: Ht 175.3 cm; Wt 56.8 kg
[2021-09-16 03:34] LABS: BASOPHILS # (AUTO) 0.1 X10'3 (0-0.2); BASOPHILS % (AUTO) 0.9 % (0-1); EOSINOPHILS # (AUTO) 0.2 X10'3 (0-0.9); EOSINOPHILS % (AUTO) 2.3 % (0-6); HEMATOCRIT 38.1 % (42.0-52.0); HEMOGLOBIN 12.9 g/dl (14.0-17.9); LYMPHOCYTES # (AUTO) 3.1 X10'3 (1.1-4.8); LYMPHOCYTES % (AUTO) 28.7 % (21-51); MEAN CORPUSCULAR HEMOGLOBIN 27.9 PG (27.0-31.0); MEAN CORPUSCULAR HGB CONC 33.8 g/dL (33.0-36.5); MEAN CORPUSCULAR VOLUME 82.7 FL (78-98); MEAN PLATELET VOLUME 7.6 FL (7.4-10.4); NEUTROPHILS # (AUTO) 6.3 X10'3 (1.8-7.7); NEUTROPHILS % (AUTO) 59.1 % (42-75); PLATELET COUNT 356 X10'3 (140-440); WHITE BLOOD COUNT 10.7 X10'3 (4.5-11.0)
[2021-09-16 03:47] LABS: ALANINE AMINOTRANSFERASE 20 U/L (12-78); ALBUMIN 3.6 G/DL (3.4-5.0); ALKALINE PHOSPHATASE 53 IU/L (46-116); ANION GAP 5 (8-16); ASPARTATE AMINO TRANSFERASE 20 U/L (10-37); BILIRUBIN,TOTAL 0.3 MG/DL (0.1-1.0); BLOOD UREA NITROGEN 29 MG/DL (7-18); BUN/CREATININE RATIO 32.2 (5.4-32.0); CALCIUM 8.5 MG/DL (8.5-10.1); CHLORIDE 107 MMOL/L (99-107); GLUCOSE 96 MG/DL (70-104); POTASSIUM 3.8 MMOL/L (3.5-5.1); SODIUM 141 MMOL/L (135-145); TOTAL CARBON DIOXIDE 29.2 MMOL/L (24-32); TOTAL PROTEIN 7.2 G/DL (6.4-8.2); eGFR > 90 ML/MIN
[2021-09-16 03:56] LABS: ETHANOL < 0.010 GM/DL (0.0-0.010)
[2021-09-16] MEDS ORDERED: RISP1TAB98 PO (04:24)
--- NOTE | 2021-09-16 05:32 | NUR ---
PT ROOMED IN BED 7. ASSUMED CARE OF PT.
--- NOTE | 2021-09-16 05:33 | NUR ---
PT'S BELONGINGS WERE PLACED SECURELY IN ER OVERFLOW LOCKER #[id number].
[2021-09-16 05:46] LABS: URINE AMPHETAMINE SCREEN POSITIVE (Neg); URINE BARBITUATE SCREEN NEGATIVE (Neg); URINE BENZODIAZEPINES SCREEN NEGATIVE (Neg); URINE CANNABINOID SCREEN NEGATIVE (Neg); URINE COCAINE SCREEN NEGATIVE (Neg); URINE METHADONE SCREEN NEGATIVE (Neg); URINE OPIATE SCREEN NEGATIVE (Neg); URINE PHENCYCLIDINE SCREEN NEGATIVE (Neg)
[2021-09-16] MEDS: risperiDONE 0.5mg tablet PO SCH ×2 (08:14→19:55)
--- NOTE | 2021-09-16 09:07 | NUR ---
BREAKFAST TRAY TO BEDSIDE.
--- NOTE | 2021-09-16 10:20 | NUR ---
Patient brought over from the main. Patient in bed laying down and quiet. No distress observed. Continue to monitor,
--- NOTE | 2021-09-16 12:37 | NUR ---
Patient laying in bed supine and appears to be sleeping. Lunch is on his tray table. Continue to monitor.
--- NOTE | 2021-09-16 14:23 | NUR ---
Patient sleeping supine. No distress observed. Continue to monitor.
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
--- NOTE | 2021-09-16 18:29 | NUR ---
Patient sleeping. No distress observed. Continue to monitor.
--- NOTE | 2021-09-16 19:02 | NUR ---
[facility] in [facility] - 09/16/21 at 1903 by IKER zoraida
--- NOTE | 2021-09-16 19:03 | NUR ---
patient use the bathroom independently.
--- NOTE | 2021-09-16 20:45 | NUR ---
patient is sleeping.
--- NOTE | 2021-09-17 00:05 | NUR ---
patient is comfortably sleeping in bed, not in any distress. will continue to monitor.
--- NOTE | 2021-09-17 02:14 | NUR ---
Patient walks to the bathroom and back to bed. Stable on his feet and not in distress.
[2021-09-17 05:45] VITALS: BP 104/69
--- NOTE | 2021-09-17 06:24 | NUR ---
Report received. Patient is resting in bed, has cough, then turns to other side with blanket over face to block lights out.
[2021-09-17] MEDS: risperiDONE 0.5mg tablet PO SCH (08:03)
--- NOTE | 2021-09-17 08:06 | NUR ---
Patient is awoken to take meds. He acts very startled when softly woken and fearful. Once he is reoriented, he calms down and takes meds then immediately goes back to sleep.
--- NOTE | 2021-09-17 09:10 | NUR ---
PATIENT RECEIVED SLEEPING IN BED. RESPIRATIONS EVEN, UNLABORED. NO S/S OF DISTRESS. WILL CONTINUE TO MONITOR.
[2021-09-17] MEDS ORDERED: LORazepam 1 MG tablet PO PRN (10:05)
--- NOTE | 2021-09-17 11:00 | NUR ---
PATIENT NOTED SITTING UP IN BED ASKING "WHEN HE CAN LEAVE". PATIIENT NOTIFIED OF HOLD STATUS. HE RETREATED BACK TO SLEEP SHORTLY AFTER. NO S/S OF DISTRESS.
--- NOTE | 2021-09-17 13:10 | NUR ---
PATIENT CONTINUES SLEEPING IN HIS ROOM THROUGHOUT THE DAY. HE WAS NOTED EATING LUNCH BEFORE GOING BACK TO BED. NO S/S OF DISTRESS OR COMPLAINTS NOTED.
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
== END 2021-09-17 16:15 ==
LOC: ER 02:38
DX: R45.851 Suicidal ideations (principal); J45.909 Unspecified asthma, uncomplicated; F41.9 Anxiety disorder, unspecified; F31.9 Bipolar disorder, unspecified; Z20.822 Contact with and (suspected) exposure to COVID-19; F20.9 Schizophrenia, unspecified; F12.90 Cannabis use, unspecified, uncomplicated; F15.90 Other stimulant use, unspecified, uncomplicated; Z59.00 Homelessness unspecified; Z88.0 Allergy status to penicillin; Z88.1 Allergy status to other antibiotic agents; Z88.5 Allergy status to narcotic agent; Z88.8 Allergy status to other drugs, medicaments and biological substances; Z79.899 Other long term (current) drug therapy
CPT/HCPCS: 36415; 80053; 80305; 80320; 84443; 85025; 87635; 99285; C9803

== ENCOUNTER 2022-04-14 10:05 | Emergency (ER) | payer MEDICAID ==
[~2022-04-14] VITALS: Ht 175.3 cm; Wt 59.1 kg
[~2022-04-14 10:05] MED LIST changes: -ALBU8.5H17 INH; -OXCA300T16 PO; +RISP1TAB98 PO
[2022-04-14] MEDS ORDERED: ondansetron 4mg rapidly disintigrating tab PO ONE (11:10)
[2022-04-14] MEDS ORDERED: normal saline 1000ML IV soln IVB STA (11:25)
[2022-04-14] MEDS ORDERED: diphenhydrAMINE 50 mg/ml inj IV ONE (11:25)
[2022-04-14] MEDS ORDERED: metoclopramide 5 mg/ml inj IV ONE (11:25)
[2022-04-14] MEDS ORDERED: NALO4SPR BOTHNARES (11:31)
[2022-04-14 11:36] LABS: URINE AMPHETAMINE SCREEN POSITIVE (Neg); URINE BARBITUATE SCREEN NEGATIVE (Neg); URINE BENZODIAZEPINES SCREEN NEGATIVE (Neg); URINE CANNABINOID SCREEN NEGATIVE (Neg); URINE COCAINE SCREEN NEGATIVE (Neg); URINE METHADONE SCREEN NEGATIVE (Neg); URINE OPIATE SCREEN NEGATIVE (Neg); URINE PHENCYCLIDINE SCREEN NEGATIVE (Neg)
[2022-04-14 12:36] LABS: BASOPHILS % (AUTO) 0.2 % (0-1); EOSINOPHILS % (AUTO) 0.1 % (0-6); HEMATOCRIT 40.1 % (42.0-52.0); HEMOGLOBIN 13.6 g/dl (14.0-17.9); LYMPHOCYTES # (AUTO) 1.3 X10'3 (1.1-4.8); LYMPHOCYTES % (AUTO) 7.9 % (21-51); MEAN CORPUSCULAR HEMOGLOBIN 28.1 PG (27.0-31.0); MEAN CORPUSCULAR HGB CONC 33.8 g/dL (33.0-36.5); MEAN PLATELET VOLUME 8.4 FL (7.4-10.4); MONOCYTES # (AUTO) 1.3 X10'3 (0-0.9); NEUTROPHILS # (AUTO) 13.9 X10'3 (1.8-7.7); NEUTROPHILS % (AUTO) 83.8 % (42-75); PLATELET COUNT 269 X10'3 (140-440); RED BLOOD COUNT 4.83 X10'6 (4.70-6.10); WHITE BLOOD COUNT 16.6 X10'3 (4.5-11.0)
[2022-04-14 12:38] LABS: ALANINE AMINOTRANSFERASE 54 U/L (12-78); ALBUMIN 3.8 G/DL (3.4-5.0); ALBUMIN/GLOBULIN RATIO 1.1 (1.1-1.5); ALKALINE PHOSPHATASE 67 IU/L (46-116); ANION GAP 8 (8-16); ASPARTATE AMINO TRANSFERASE 58 U/L (10-37); BILIRUBIN,TOTAL 0.4 MG/DL (0.1-1.0); BLOOD UREA NITROGEN 25 MG/DL (7-18); BUN/CREATININE RATIO 22.5 (5.4-32.0); CALCIUM 8.6 MG/DL (8.5-10.1); CHLORIDE 107 MMOL/L (99-107); CREATINE KINASE 211 U/L (39-308); CREATININE 1.11 MG/DL (0.60-1.10); GLUCOSE 84 MG/DL (70-104); POTASSIUM 3.3 MMOL/L (3.5-5.1); SODIUM 145 MMOL/L (135-145); TOTAL CARBON DIOXIDE 30.1 MMOL/L (24-32); TOTAL PROTEIN 7.4 G/DL (6.4-8.2); eGFR 77 ML/MIN
[2022-04-14 16:00] VITALS: BP 108/66
--- NOTE | 2022-04-14 16:45 | NUR ---
pt provided with sandwhich, water, and new set of clothing.
== END 2022-04-14 16:30 | disposition home or self-care (01) ==
LOC: ER 10:05
DX: T40.601A Poisoning by unspecified narcotics, accidental (unintentional), initial encounter (principal); F15.20 Other stimulant dependence, uncomplicated; Z59.00 Homelessness unspecified; Y92.89 Other specified places as the place of occurrence of the external cause
CPT/HCPCS: 36415; 80053; 80305; 82550; 85025; 96374; 96375; 99284; J1200; J2765; J7030

== ENCOUNTER 2022-06-29 01:58 | Emergency (ER) | payer MEDICAID ==
[~2022-06-29 01:58] MED LIST changes: +NALO4SPR BOTHNARES
== END 2022-06-29 03:16 | disposition left against medical advice (07) ==
LOC: ER 01:58
DX: Z00.8 Encounter for other general examination (principal); Z53.21 Procedure and treatment not carried out due to patient leaving prior to being seen by health care provider

== ENCOUNTER 2022-09-12 01:01 | Emergency (ER) | payer MEDICAID ==
[~2022-09-12] VITALS: Ht 175.3 cm; Wt 57.7 kg
[2022-09-12 01:04] VITALS: BP 134/91
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
== END 2022-09-12 04:42 | disposition home or self-care (01) ==
LOC: ER 01:02
DX: S01.21XA Laceration without foreign body of nose, initial encounter (principal); S01.01XA Laceration without foreign body of scalp, initial encounter; J45.909 Unspecified asthma, uncomplicated; F41.9 Anxiety disorder, unspecified; F31.9 Bipolar disorder, unspecified; F20.9 Schizophrenia, unspecified; F17.200 Nicotine dependence, unspecified, uncomplicated; F12.90 Cannabis use, unspecified, uncomplicated; F15.90 Other stimulant use, unspecified, uncomplicated; Z59.00 Homelessness unspecified; Z88.0 Allergy status to penicillin; Z88.1 Allergy status to other antibiotic agents; Z79.899 Other long term (current) drug therapy; Y04.8XXA Assault by other bodily force, initial encounter; Y93.89 Activity, other specified; Y92.89 Other specified places as the place of occurrence of the external cause; Y99.8 Other external cause status
CPT/HCPCS: 99283

== ENCOUNTER 2022-09-26 19:07 | Emergency (ER) | payer MEDICAID ==
[~2022-09-26] VITALS: Ht 172.7 cm; Wt 63.6 kg
[2022-09-26 19:20] VITALS: BP 114/81
[2022-09-26 19:45] LABS: BASOPHILS # (AUTO) 0.1 X10'3 (0-0.2); EOSINOPHILS # (AUTO) 0.4 X10'3 (0-0.9); EOSINOPHILS % (AUTO) 4.1 % (0-6); HEMATOCRIT 38.2 % (42.0-52.0); HEMOGLOBIN 12.8 g/dl (14.0-17.9); LYMPHOCYTES # (AUTO) 2.6 X10'3 (1.1-4.8); LYMPHOCYTES % (AUTO) 27.8 % (21-51); MEAN CORPUSCULAR HEMOGLOBIN 27.1 PG (27.0-31.0); MEAN CORPUSCULAR HGB CONC 33.5 g/dL (33.0-36.5); MEAN CORPUSCULAR VOLUME 80.9 FL (78-98); MEAN PLATELET VOLUME 7.9 FL (7.4-10.4); MONOCYTES # (AUTO) 1.1 X10'3 (0-0.9); MONOCYTES % (AUTO) 11.9 % (2-12); NEUTROPHILS # (AUTO) 5.2 X10'3 (1.8-7.7); NEUTROPHILS % (AUTO) 55.2 % (42-75); PLATELET COUNT 291 X10'3 (140-440); RED BLOOD COUNT 4.73 X10'6 (4.70-6.10); RED CELL DISTRIBUTION WIDTH 15.6 % (11.5-14.5); WHITE BLOOD COUNT 9.5 X10'3 (4.5-11.0)
[2022-09-26 19:53] LABS: ALANINE AMINOTRANSFERASE 36 U/L (12-78); ALBUMIN 3.6 G/DL (3.4-5.0); ALBUMIN/GLOBULIN RATIO 0.9 (1.1-1.5); ALKALINE PHOSPHATASE 68 IU/L (46-116); ANION GAP 8 (8-16); ASPARTATE AMINO TRANSFERASE 32 U/L (10-37); BILIRUBIN,TOTAL 0.3 MG/DL (0.1-1.0); BLOOD UREA NITROGEN 17 MG/DL (7-18); CALCIUM 8.9 MG/DL (8.5-10.1); CHLORIDE 104 MMOL/L (99-107); CREATININE 0.85 MG/DL (0.60-1.10); GLUCOSE 120 MG/DL (70-104); POTASSIUM 3.7 MMOL/L (3.5-5.1); SODIUM 141 MMOL/L (135-145); TOTAL CARBON DIOXIDE 29.3 MMOL/L (24-32); TOTAL PROTEIN 7.4 G/DL (6.4-8.2); eGFR > 90 ML/MIN
[2022-09-26 20:06] LABS: URINE AMPHETAMINE SCREEN POSITIVE (Neg); URINE BARBITUATE SCREEN NEGATIVE (Neg); URINE BENZODIAZEPINES SCREEN NEGATIVE (Neg); URINE CANNABINOID SCREEN NEGATIVE (Neg); URINE COCAINE SCREEN NEGATIVE (Neg); URINE METHADONE SCREEN NEGATIVE (Neg); URINE OPIATE SCREEN NEGATIVE (Neg); URINE PHENCYCLIDINE SCREEN NEGATIVE (Neg)
== END 2022-09-26 20:31 | disposition left against medical advice (07) ==
LOC: ER 19:07
DX: R07.89 Other chest pain (principal); R06.02 Shortness of breath; R10.11 Right upper quadrant pain; F12.10 Cannabis abuse, uncomplicated; F31.9 Bipolar disorder, unspecified; F20.9 Schizophrenia, unspecified; J45.909 Unspecified asthma, uncomplicated; F15.10 Other stimulant abuse, uncomplicated; F17.200 Nicotine dependence, unspecified, uncomplicated; Z88.0 Allergy status to penicillin; Z88.1 Allergy status to other antibiotic agents; Z90.49 Acquired absence of other specified parts of digestive tract; Z91.040 Latex allergy status; Z88.5 Allergy status to narcotic agent
CPT/HCPCS: 36415; 71045; 80053; 80305; 84484; 85025; 93005; 99285

== ENCOUNTER 2022-10-31 03:23 | Emergency (ER) | payer MEDICAID ==
[~2022-10-31] VITALS: Ht 172.7 cm; Wt 54.0 kg
[2022-10-31 03:42] VITALS: BP 144/82
== END 2022-10-31 05:55 | disposition left against medical advice (07) ==
LOC: ER 03:24
DX: R51.9 Headache, unspecified (principal); N23 Unspecified renal colic; Z53.21 Procedure and treatment not carried out due to patient leaving prior to being seen by health care provider; Y04.8XXA Assault by other bodily force, initial encounter; Y93.89 Activity, other specified; Y92.89 Other specified places as the place of occurrence of the external cause; Y99.8 Other external cause status
CPT/HCPCS: 99281

== ENCOUNTER 2023-01-07 16:53 | Emergency (ER) | payer MEDICAID ==
[~2023-01-07] VITALS: Ht 175.3 cm; Wt 55.0 kg
[2023-01-07 17:03] VITALS: BP 129/85
[2023-01-07] MEDS ORDERED: DIVA-76 PO (19:36)
[2023-01-07] MEDS ORDERED: BUPR1FIL3 SL (19:36)
[2023-01-07] MEDS ORDERED: divalproex 250mg tablet, delayed-release PO ONE (19:40)
[2023-01-07] MEDS ORDERED: buprenorphine/naloxone 8MG-2MG SUBlingual film SL ONE (19:40)
== END 2023-01-07 20:17 | disposition home or self-care (01) ==
LOC: ER 16:53
DX: F15.10 Other stimulant abuse, uncomplicated (principal); F10.10 Alcohol abuse, uncomplicated; F11.10 Opioid abuse, uncomplicated; Z00.00 Encounter for general adult medical examination without abnormal findings; J45.909 Unspecified asthma, uncomplicated; Z59.00 Homelessness unspecified; Z88.0 Allergy status to penicillin; Z88.1 Allergy status to other antibiotic agents; Z91.011 Allergy to milk products; Z88.5 Allergy status to narcotic agent; Z88.8 Allergy status to other drugs, medicaments and biological substances; Z79.899 Other long term (current) drug therapy
CPT/HCPCS: 99284

== ENCOUNTER 2023-03-19 06:04 | Emergency (ER) | payer MEDICAID ==
[~2023-03-19] VITALS: Ht 175.3 cm; Wt 52.2 kg
[2023-03-19 06:09] VITALS: BP 140/86; PULSE 110; RESP 18; TEMP 97.8; O2SAT 96
--- NOTE | 2023-03-19 06:19 | NUR ---
marco navarro will send an officer.
== END 2023-03-19 10:50 | disposition left against medical advice (07) ==
LOC: ER 06:05
DX: Z00.8 Encounter for other general examination (principal); R06.00 Dyspnea, unspecified; Z53.21 Procedure and treatment not carried out due to patient leaving prior to being seen by health care provider; Y04.8XXA Assault by other bodily force, initial encounter; Y93.89 Activity, other specified; Y92.89 Other specified places as the place of occurrence of the external cause; Y99.8 Other external cause status
CPT/HCPCS: 99281

== ENCOUNTER 2023-09-03 00:41 | Emergency (ER) | payer MEDICAID ==
[~2023-09-03] VITALS: Ht 167.6 cm; Wt 59.4 kg
[~2023-09-03 00:41] MED LIST changes: +ALBU90AE IH; +BUDE10.26 PO; +FOLI1TAB27 PO; +MULT-25 PO; -NALO4SPR BOTHNARES; +OLAN10TA3 PO; -RISP1TAB98 PO; +thiamine tablet PO
[2023-09-03 00:43] VITALS: BP 121/70; PULSE 109; RESP 16; TEMP 98.1; O2SAT 97
== END 2023-09-03 03:25 | disposition left against medical advice (07) ==
LOC: ER 00:42
DX: R05.9 Cough, unspecified (principal); R09.81 Nasal congestion; Z20.822 Contact with and (suspected) exposure to COVID-19; Z53.21 Procedure and treatment not carried out due to patient leaving prior to being seen by health care provider
CPT/HCPCS: 36415; 71045; 87502; 87503; 87811; 99281; 99284

== ENCOUNTER 2023-10-01 04:51 | Emergency (ER) | payer MEDICAID ==
[~2023-10-01] VITALS: Ht 175.3 cm; Wt 60.9 kg
[2023-10-01 04:54] VITALS: BP 121/96; PULSE 88; TEMP 98.5; O2SAT 99
[2023-10-01] MEDS ORDERED: CEPH-585 PO (05:03)
[2023-10-01 05:04] VITALS: RESP 20
== END 2023-10-01 05:13 | disposition home or self-care (01) ==
LOC: ER 04:51
DX: R23.4 Changes in skin texture (principal); F12.10 Cannabis abuse, uncomplicated; J45.909 Unspecified asthma, uncomplicated; F31.9 Bipolar disorder, unspecified; F20.9 Schizophrenia, unspecified; F15.10 Other stimulant abuse, uncomplicated; Z88.0 Allergy status to penicillin; Z88.1 Allergy status to other antibiotic agents; Z79.899 Other long term (current) drug therapy
CPT/HCPCS: 99283

== ENCOUNTER 2023-11-13 00:03 | Emergency (ER) | payer MEDICAID ==
[~2023-11-13] VITALS: Ht 175.3 cm; Wt 56.8 kg
[~2023-11-13 00:03] MED LIST changes: +CEPH-585 PO
[2023-11-13 00:06] VITALS: BP 112/63; PULSE 66; RESP 18; TEMP 98.9; O2SAT 96
== END 2023-11-13 01:27 | disposition left against medical advice (07) ==
LOC: ER 00:04
DX: J11.1 Influenza due to unidentified influenza virus with other respiratory manifestations (principal); Z53.21 Procedure and treatment not carried out due to patient leaving prior to being seen by health care provider
CPT/HCPCS: 99281

== ENCOUNTER 2023-11-16 00:39 | Emergency (ER) | payer MEDICAID ==
[~2023-11-16] VITALS: Ht 175.3 cm; Wt 60.0 kg
[2023-11-16 00:48] VITALS: BP 138/70; PULSE 81; RESP 19; TEMP 98.2; O2SAT 93
== END 2023-11-16 02:36 | disposition left against medical advice (07) ==
LOC: ER 00:40
DX: F15.90 Other stimulant use, unspecified, uncomplicated (principal); R11.10 Vomiting, unspecified; R05.9 Cough, unspecified; R09.81 Nasal congestion; Z53.21 Procedure and treatment not carried out due to patient leaving prior to being seen by health care provider
CPT/HCPCS: 99281

== ENCOUNTER 2024-02-20 13:27 | Emergency (ER) | payer MEDICAID ==
[~2024-02-20] VITALS: Ht 175.3 cm; Wt 53.3 kg
[2024-02-20 13:30] VITALS: BP 124/84; PULSE 68; TEMP 97.7; O2SAT 94
[2024-02-20] MEDS ORDERED: ALBU8HFA INH (14:25)
[2024-02-20] MEDS ORDERED: IBUP-862 PO (14:25)
[2024-02-20] MEDS: ibuprofen tablet 400 MG TABLET PO ONE (14:59)
[2024-02-20 15:02] VITALS: RESP 18
== END 2024-02-20 15:04 | disposition home or self-care (01) ==
LOC: ER 13:28
DX: S20.212A Contusion of left front wall of thorax, initial encounter (principal); J45.909 Unspecified asthma, uncomplicated; F12.90 Cannabis use, unspecified, uncomplicated; F15.90 Other stimulant use, unspecified, uncomplicated; Z88.0 Allergy status to penicillin; Z88.1 Allergy status to other antibiotic agents; Z88.8 Allergy status to other drugs, medicaments and biological substances; Z79.899 Other long term (current) drug therapy; Y04.0XXA Assault by unarmed brawl or fight, initial encounter; Y93.89 Activity, other specified; Y92.89 Other specified places as the place of occurrence of the external cause; Y99.8 Other external cause status
CPT/HCPCS: 71045; 99283

== ENCOUNTER 2024-04-25 01:29 | Emergency (ER) | payer MEDICAID ==
[~2024-04-25] VITALS: Ht 175.3 cm; Wt 54.3 kg
[~2024-04-25 01:29] MED LIST changes: +IBUP-862 PO
[2024-04-25 01:41] VITALS: BP 128/81; PULSE 84; RESP 16; TEMP 99.3; O2SAT 98
== END 2024-04-25 04:09 | disposition left against medical advice (07) ==
LOC: ER 01:30
DX: K13.0 Diseases of lips (principal); Z88.1 Allergy status to other antibiotic agents; Z88.8 Allergy status to other drugs, medicaments and biological substances; Z53.21 Procedure and treatment not carried out due to patient leaving prior to being seen by health care provider

== ENCOUNTER 2024-05-04 02:38 | Emergency (ER) | payer MEDICAID ==
[~2024-05-04] VITALS: Ht 175.3 cm; Wt 60.9 kg
[2024-05-04 02:44] VITALS: BP 155/98; PULSE 98; RESP 20; TEMP 98.4; O2SAT 100
== END 2024-05-04 05:59 | disposition left against medical advice (07) ==
LOC: ER 02:38
DX: M25.532 Pain in left wrist (principal); M25.531 Pain in right wrist; Z88.0 Allergy status to penicillin; Z88.1 Allergy status to other antibiotic agents; Z88.8 Allergy status to other drugs, medicaments and biological substances; Z53.21 Procedure and treatment not carried out due to patient leaving prior to being seen by health care provider; Y08.89XA Assault by other specified means, initial encounter; Y93.89 Activity, other specified; Y92.89 Other specified places as the place of occurrence of the external cause; Y99.8 Other external cause status

== ENCOUNTER 2024-09-12 03:12 | Emergency (ER) | payer MEDICAID ==
[~2024-09-12] VITALS: Ht 172.7 cm; Wt 58.0 kg
[2024-09-12] MEDS ORDERED: FLUT16SP2 BOTHNARES (04:15)
[2024-09-12 04:22] VITALS: BP 144/57; PULSE 87; RESP 19; TEMP 97.7; O2SAT 96
== END 2024-09-12 04:24 | disposition home or self-care (01) ==
LOC: ER 03:13
DX: J06.9 Acute upper respiratory infection, unspecified (principal); J45.909 Unspecified asthma, uncomplicated; F31.9 Bipolar disorder, unspecified; F20.9 Schizophrenia, unspecified; F41.0 Panic disorder [episodic paroxysmal anxiety]; F12.90 Cannabis use, unspecified, uncomplicated; F15.90 Other stimulant use, unspecified, uncomplicated; Z88.1 Allergy status to other antibiotic agents; Z88.0 Allergy status to penicillin; Z76.0 Encounter for issue of repeat prescription; Z59.00 Homelessness unspecified; Z79.52 Long term (current) use of systemic steroids; Z79.1 Long term (current) use of non-steroidal anti-inflammatories (NSAID); Z79.899 Other long term (current) drug therapy; Z20.822 Contact with and (suspected) exposure to COVID-19
CPT/HCPCS: 99281

== ENCOUNTER 2024-09-25 01:54 | Emergency (ER) | payer MEDICAID ==
[~2024-09-25] VITALS: Ht 175.3 cm; Wt 65.9 kg
[~2024-09-25 01:54] MED LIST changes: +FLUT16SP2 BOTHNARES
[2024-09-25] MEDS ORDERED: ERYT-141 PO (04:05)
[2024-09-25] MEDS ORDERED: ERYTHROMYCIN STEARATE PO STA (04:06)
[2024-09-25] MEDS: ondansetron 4mg rapidly disintigrating tab PO ONE (04:23)
[2024-09-25] MEDS: LORazepam 1 MG tablet PO ONE (04:23)
[2024-09-25] MEDS: erythromycin base 250mg tablet PO STA (04:30)
[2024-09-25 04:36] VITALS: BP 134/87; PULSE 67; RESP 18; TEMP 99; O2SAT 98
== END 2024-09-25 04:38 | disposition home or self-care (01) ==
LOC: ER 01:55
DX: K13.79 Other lesions of oral mucosa (principal); R45.1 Restlessness and agitation; Z76.0 Encounter for issue of repeat prescription; J45.909 Unspecified asthma, uncomplicated; F20.9 Schizophrenia, unspecified; F31.9 Bipolar disorder, unspecified; F41.9 Anxiety disorder, unspecified; F12.90 Cannabis use, unspecified, uncomplicated; F15.90 Other stimulant use, unspecified, uncomplicated; Z88.0 Allergy status to penicillin; Z88.1 Allergy status to other antibiotic agents; Z88.5 Allergy status to narcotic agent
CPT/HCPCS: 99284; A6449

== ENCOUNTER 2024-12-13 12:43 | Emergency (ER) | payer MEDICAID ==
[~2024-12-13] VITALS: Ht 175.3 cm; Wt 55.5 kg
[~2024-12-13 12:43] MED LIST changes: -CEPH-585 PO
[2024-12-13 12:47] VITALS: BP 136/86; PULSE 126; RESP 18; O2SAT 96
--- NOTE | 2024-12-13 14:24 | Physician Documentation ---
History of Present Illness ~ Chief Complaint: Abdominal Pain w/vomiting Stated Complaint: ABD PAIN Time Seen by MD: 13:44 Primary Medical Doctor: martin LIU The patient is seen Today with complaints of epigastric abdominal discomfort x3 days as well as loose stool for three days after he ate a meal at [place] [employer]. Patient states he has had about three loose stools daily for the last few days. Patient denies any urinary symptoms or dysuria or urinary frequency or urgency increase or penile discharge. Patient denies any flank pain or fevers or chills or nausea, vomiting, diarrhea or chest pain or shortness of breath. Patient has no other concern or complaint at this time. Patient states he does have history of GERD and does take some medication for GERD currently. Medication Reconciliation Allergies: Coded Allergies: Penicillins (Verified Allergy, Intermediate, HIVES, 09/25/24) amoxicillin (Verified Allergy, Intermediate, HIVES, 09/25/24) lactose (Verified Allergy, Intermediate, stomach pain, 09/25/24) doxycycline (Verified Allergy, Unknown, rash, 09/25/24) morphine (Verified Allergy, Unknown, 09/25/24) PT HAS TAKEN NORCO WITH NO PROBLEMS BEFORE Scheduled Budesonide/Formoterol Fumarate (Budesonide-Formoterol 160-4.5), 2 PUFFS PO BID Fluticasone Propionate (Flonase), 2 SPRAYS BOTHNARES DAILY Folic Acid* (Folic Acid*), 1 MG PO DAILY Ibuprofen (Ibu), 1 TAB PO Q6H Multivitamin with Folic Acid (Thera Tablet), 1 EACH PO Q24H Olanzapine (Zyprexa), 1 TAB PO BID [thiamine tablet], 100 MG PO DAILY Scheduled PRN Albuterol Sulfate (Proair Respiclick), 2 PUFFS IH Q4H PRN for SOB or wheezing Past Medical History Past Medical History: Seizures, Asthma, Anxiety, Bipolar, Panic Disorder, Schizophrenia Past Surgical History: no surgical history Patient History: Patient reports no known family medical history. Alcohol Use: None Drug Use: marijuana, methamphetamine Lives In: Homeless Occupation: disabled Review of Systems Constitutional: Denies: chills, fever, weakness Eyes: Denies: pain, blurred vision ENT: Denies: ear pain, nose pain, throat pain, mouth pain Respiratory: Denies: cough, shortness of breath Cardiovascular: Denies: chest pain, palpitations Gastrointestinal: Denies: abdominal pain, nausea, vomiting Genitourinary: Denies: burning, dysuria Male Genitalia: Denies: penile discharge, testicular pain Neurological: Denies: headache, dizziness Musculoskeletal: Denies: pain, swelling Integumentary: Denies: rash, lesions Allergic/Immunologic: Denies: hives, itching Hematologic/Lymphatic: Denies: no symptoms reported Psychiatric: Denies: depression, anxiety Physical Exam Vital Signs: Temperature: 99.0, Source: Oral, Heart Rate: 126, Respiratory Rate: 18, BP: 136/86, Pulse Oximetry: 96, Weight: 55.450 Physical Exam General: Awake and Alert, no acute distress. HEENT: Conjunctiva pink, Sclera clear, Mucus Membranes moist. Neck: Supple without masses and tenderness. Resp: Unlabored. Lungs clear to auscultation bilaterally. Heart: Regular Rate and rhythm, normal S1 and S2 without murmur, rub or gallop. Abdomen: On exam, the abdomen is soft, nondistended, very minimal tenderness to palpation in the epigastric area. No rebound tenderness, no guarding. No masses. Extremities: No cyanosis,clubbing or edema. Skin: Warm and Dry. Progress Results/Orders Results/Orders Vital Signs 12/13/24 12:47 Temp 99.0 Pulse 126 Resp 18 B/P (MAP) 136/86 Pulse Ox 96 Medical Decision Making Findings The patient is seen Today with complaints of epigastric abdominal discomfort x3 days as well as loose stool for three days after he ate a meal at his [place] [employer]. Patient states he has had about three loose stools daily for the last few days. Patient denies any urinary symptoms or dysuria or urinary frequency or urgency increase or penile discharge. Patient denies any flank pain or fevers or chills or nausea, vomiting, diarrhea or chest pain or shortness of breath. Patient has no other concern or complaint at this time. Patient states he does have history of GERD and does take some medication for GERD currently. Patient was given dose of Maalox in the ED today with mild improvement. Patient given prescription for sucralfate sent to patient pharmacy. Patient will return to ED with any worsening, concerning or changing symptoms. Patient will follow up with primary care in 2-5 days if no better as needed sooner. Departure Disposition: HOME / SELF CARE / HOMELESS Impression: Primary Impression: Acute gastroenteritis Condition: Improved Discharge Instructions: Gastritis, Adult Additional Instructions: Patient was given dose of Maalox in the ED today with mild improvement. Patient given prescription for sucralfate sent to patient pharmacy. Patient will return to ED with any worsening, concerning or changing symptoms. Patient will follow up with primary care in 2-5 days if no better as needed sooner. Referrals: NO PRIMARY CARE PROVIDER (PCP) Prescriptions Sucralfate (Sucralfate) 1 Gram Tablet 1 TAB PO Q6H for 30 Days, #120 TAB 0 Refills Prov: VARINDER GALLO 12/13/24 Signature Scribe Signature: No scribe Attestation: No scribe VARINDER GALLO December 13, 2024 14:24
[2024-12-13] MEDS ORDERED: SUCR1TAB PO (14:41)
[2024-12-13] MEDS: mag hydrox/Alum hydrox/simeth 30ml oral suspension PO STA (15:03)
[2024-12-13 15:06] VITALS: TEMP 99
== END 2024-12-13 15:09 | disposition home or self-care (01) ==
LOC: ER 12:43
DX: K52.9 Noninfective gastroenteritis and colitis, unspecified (principal); J45.909 Unspecified asthma, uncomplicated; F31.9 Bipolar disorder, unspecified; F12.90 Cannabis use, unspecified, uncomplicated; F15.90 Other stimulant use, unspecified, uncomplicated; F41.0 Panic disorder [episodic paroxysmal anxiety]; Z88.0 Allergy status to penicillin; Z88.1 Allergy status to other antibiotic agents; Z88.5 Allergy status to narcotic agent; F20.9 Schizophrenia, unspecified; Z59.00 Homelessness unspecified; Z79.899 Other long term (current) drug therapy
CPT/HCPCS: 99283

== ENCOUNTER 2025-03-12 00:41 | Emergency (ER) | payer MEDICAID ==
[~2025-03-12] VITALS: Ht 175.3 cm; Wt 63.2 kg
[~2025-03-12 00:41] MED LIST changes: +SUCR1TAB PO
[2025-03-12 01:02] VITALS: BP 112/68; PULSE 81; RESP 16; TEMP 98.6; O2SAT 96
== END 2025-03-12 03:32 | disposition left against medical advice (07) ==
LOC: ER 00:41
DX: R22.0 Localized swelling, mass and lump, head (principal); M54.9 Dorsalgia, unspecified; R39.198 Other difficulties with micturition; Z53.21 Procedure and treatment not carried out due to patient leaving prior to being seen by health care provider; Z88.1 Allergy status to other antibiotic agents; Z88.5 Allergy status to narcotic agent; Z88.0 Allergy status to penicillin; Z88.8 Allergy status to other drugs, medicaments and biological substances

== ENCOUNTER 2025-07-05 02:07 | Emergency (ER) | payer MEDICAID ==
[~2025-07-05] VITALS: Ht 175.3 cm; Wt 65.0 kg
[2025-07-05 02:20] VITALS: TEMP 96.3
--- NOTE | 2025-07-05 03:15 | RADIOLOGY REPORT ---
EXAM: CT CT HEAD INDICATION: head trauma TECHNIQUE: CT of the head without intravenous contrast. Radiation Dose : 1. Head: CT Dose: CTDI volume is 59 mGy. Dose-length product is 1146 mGy*cm The dose indicators for CT are the volume Computed Tomography (CT) Dose Index (CTDIvol) and the Dose Length Product (DLP), and are measured in units of mGy and mGy-cm, respectively. These indicators are not patient dose, but values generated from the CT scanner acquisition factors. The report includes radiation exposure data for exposures received during this examination. COMPARISON: CT HEAD on DOS: 08/29/20, CT HEAD on DOS: 01/17/20, CT HEAD on DOS: 06/24/19 FINDINGS: Brain: No acute hemorrhage, mass effect, or cerebral edema. CSF Spaces: Size and morphology within normal limits. Bones/Soft Tissues: No acute fracture. Suspected small hematoma and laceration near the scalp vertex. Small focal right temporal soft tissue density lesion appears dermatologic. Orbits/Sinuses/Mastoids: Unremarkable as visualized. IMPRESSION: 1. No acute intracranial abnormality. Radiation optimization: All CT scans at this facility use at least one of these dose optimization techniques: automated exposure control mA and/or kV adjustment per patient size (includes targeted exams where dose is matched to clinical indication) or iterative reconstruction.
--- NOTE | 2025-07-05 03:40 | RADIOLOGY REPORT ---
CLINICAL INDICATION: KNEE PAIN TECHNIQUE: 3 views left knee, 4 views left tib-fib DI KNEE 3 VWS, DI TIB/FIB 2 VWS Comparison: None FINDINGS: No acute fracture, joint malalignment, or knee effusion. Normal osseous mineralization. No significant degenerative change. Unremarkable soft tissues. IMPRESSION: 1. No acute abnormality of the left knee or lower leg.
--- NOTE | 2025-07-05 03:43 | RADIOLOGY REPORT ---
CLINICAL INDICATION: HIP PAIN TECHNIQUE: 2 views DI HIP UNILATERAL 2-3 VIEWS Comparison: None FINDINGS: No acute fracture or dislocation. Bilateral periacetabular ossicles. No significant degenerative change. Unremarkable pelvic contents. IMPRESSION: 1. No acute osseous abnormality of the pelvis or left hip.
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
[2025-07-05] MEDS: bacitracin 15gm ointment TP ONE (04:14)
[2025-07-05] MEDS: ketorolac trometh 15mg/ml vial 15 MG/ML ML IM ONE (04:14)
[2025-07-05 05:48] VITALS: BP 118/64; PULSE 78; RESP 16; O2SAT 98
== END 2025-07-05 05:49 | disposition home or self-care (01) ==
LOC: ER 02:08
DX: S01.91XA Laceration without foreign body of unspecified part of head, initial encounter (principal); R51.9 Headache, unspecified; J45.909 Unspecified asthma, uncomplicated; F20.9 Schizophrenia, unspecified; F31.9 Bipolar disorder, unspecified; F12.90 Cannabis use, unspecified, uncomplicated; F15.90 Other stimulant use, unspecified, uncomplicated; Z88.0 Allergy status to penicillin; Z88.1 Allergy status to other antibiotic agents; Z88.5 Allergy status to narcotic agent; Y09 Assault by unspecified means; Y93.89 Activity, other specified; Y92.89 Other specified places as the place of occurrence of the external cause; Y99.8 Other external cause status
CPT/HCPCS: 12001; 70450; 73502; 73562; 73590; 99284; J7030; 12011; A6449